=== PATIENT | female | born 1960 | race Caucasian/White ===

== ENCOUNTER → 2018-11-03 | Outpatient (CLI) | payer OTHER ==
--- NOTE | 2018-11-03 14:40 | Diagnostic Imaging Report ---
PROCEDURE: US Non-ob pelvis comp/trans. TECHNIQUE: Multiple realtime grayscale images were obtained of the pelvis in various projections endovaginally. Transabdominal imaging was also performed. INDICATION: Postmenopausal bleeding. FINDINGS: The uterus measures 11.2 x 6.1 x 4.9 cm. Endometrium is 8 mm in thickness. No myometrial mass is identified. There is a mass involving the right adnexa measuring 9.4 x 8.2 x 7.5 cm. This does contain internal septations and vascularity and is suspicious for an ovarian neoplasm. There is some free fluid in the right adnexa as well. Left ovary was not visualized. IMPRESSION: Complex right adnexal mass, likely ovarian. This is suspicious for ovarian neoplasm. No other abnormality is detected. Dictated by: Dictated on workstation # [id number]
== END ==
LOC: RAD 12:47
PROVIDERS: ATTEND Obstetrics & Gynecology
DX: C50.919 Malignant neoplasm of unspecified site of unspecified female breast (principal); N84.0 Polyp of corpus uteri; Z79.810 Long term (current) use of selective estrogen receptor modulators (SERMs)
CPT/HCPCS: 76830; 76856

== ENCOUNTER → 2018-11-09 | Outpatient (CLI) | payer OTHER ==
[~2018-11-09] MED LIST: IOHEXOL 350 MG/ML 100 ML (OMNIPAQUE 350) VIAL IV ONE; NS 100 ML (IVPB) BAG IV ONE; RECEIVED CONTRAST (Hold Metformin) IV SCH
--- NOTE | 2018-11-09 09:44 | Diagnostic Imaging Report ---
PROCEDURE: CT chest with contrast, CT abdomen and pelvis with and without contrast. TECHNIQUE: Pre and post intravenous contrast axial imaging of the abdomen and pelvis and post contrast axial imaging of the chest were performed. INDICATION: Adnexal mass. COMPARISON: No prior CT studies are available for comparison. FINDINGS: CT chest: No axillary lymphadenopathy is seen. No definite mediastinal or hilar lymphadenopathy is identified. No pericardial or pleural fluid is identified. Pulmonary parenchymal evaluation does show some linear opacity in the left upper lobe suggestive of scarring. There is some minimal linear scarring or atelectasis right lower lobe as well. No parenchymal mass or nodule is seen. IMPRESSION: Essentially unremarkable CT of the chest apart from areas of linear atelectasis or scarring left upper lobe and right lower lobe. No thoracic lymphadenopathy or evidence of pulmonary metastatic disease is identified. CT abdomen and pelvis: No discrete liver mass is identified. The gallbladder is unremarkable. No biliary duct dilatation is seen. The pancreas is unremarkable. There is a tiny low density in the lower portion of the spleen measuring 11 mm. This most likely represents a cyst. No adrenal mass is identified. The kidneys are unremarkable. Aorta is nonaneurysmal. No definite central retroperitoneal lymphadenopathy is seen. There is abnormal density and nodularity involving the omentum in the anterior abdomen suggestive of omental caking. There also is free fluid in the abdomen located in perihepatic and perisplenic regions as well as paracolic gutters. Imaging through the pelvis demonstrates a complex mixed solid and cystic mass in the right adnexa correlating with the recent ultrasound abnormality. This measures 7.8 x 7.6 cm. There is some free fluid in the pelvis as well. There is diverticular disease of the sigmoid colon. The bladder is unremarkable. No definite inguinal or iliac lymphadenopathy is seen. IMPRESSION: Complex mass right adnexa, highly suggestive of ovarian neoplasm. In addition, there appears to be omental caking and abdominal and pelvic ascites. Features are suggestive of peritoneal carcinomatosis. Dictated by: Dictated on workstation # [id number]
== END ==
LOC: RAD 08:41
PROVIDERS: ATTEND Obstetrics & Gynecology
DX: C50.919 Malignant neoplasm of unspecified site of unspecified female breast (principal); N83.8 Other noninflammatory disorders of ovary, fallopian tube and broad ligament; N84.0 Polyp of corpus uteri; R18.8 Other ascites
CPT/HCPCS: 71260; 74178

== ENCOUNTER 2019-01-17 08:43 | Outpatient (RCR) | payer SELFPAY ==
[2019-01-17] MEDS ORDERED: PACLITAXEL PROTEIN IV SCH (11:45)
[2019-01-17] MEDS ORDERED: PALONOSETRON HCL 0.25 MG, DEXAMETHASONE INJECTION 10 MG in NS (IVPB) CANCER CENTER 50 ML IV SCH (11:45)
[2019-01-17] MEDS ORDERED: NORMAL SALINE IV SCH (11:45)
[2019-01-17] MEDS ORDERED: NS IV 1000 ML (CANCER CTR) IV SCH (11:45)
[2019-01-17] MEDS ORDERED: FOSAPREPITANT DIMEGLUMINE 150 MG in NS (IVPB) CANCER CENTER ONLY 150 ML IV SCH (11:45)
[2019-01-18] MEDS ORDERED: PACLITAXEL PROTEIN IV SCH (08:15)
[2019-01-18] MEDS ORDERED: NORMAL SALINE IV SCH (08:15)
[2019-01-18 10:20] LABS: BASOPHILS % (AUTO) 1 % (0-10); EOSINOPHILS % (AUTO) 0 % (0-10); HEMATOCRIT 35 % (35-52); HEMOGLOBIN 11.1 G/DL (11.5-16.0); LYMPHOCYTES # (AUTO) 0.7 X 10^3 (1.0-4.0); LYMPHOCYTES % (AUTO) 41 % (12-44); MEAN CORPUSCULAR HEMOGLOBIN 29 PG (25-34); MEAN CORPUSCULAR HGB CONC 32 G/DL (32-36); MEAN CORPUSCULAR VOLUME 91 FL (80-99); MEAN PLATELET VOLUME 9.8 FL (7.4-10.4); MONOCYTES # (AUTO) 0.1 X 10^3 (0.0-1.0); MONOCYTES % (AUTO) 3 % (0-12); NEUTROPHILS % (AUTO) 55 % (42-75); PLATELET COUNT 442 10^3/uL (130-400); RED CELL DISTRIBUTION WIDTH 16.1 % (10.0-14.5); WHITE BLOOD COUNT 1.8 10^3/uL (4.3-11.0)
[2019-01-18 10:41] LABS: ALANINE AMINOTRANSFERASE 96 U/L (0-55); ALBUMIN 4.4 GM/DL (3.2-4.5); ALKALINE PHOSPHATASE 152 U/L (40-136); BILIRUBIN,TOTAL 0.3 MG/DL (0.1-1.0); BUN/CREATININE RATIO 22; CALCIUM 9.6 MG/DL (8.5-10.1); CARBON DIOXIDE 20 MMOL/L (21-32); CHLORIDE 105 MMOL/L (98-107); CREATININE SERUM 0.79 MG/DL (0.60-1.30); GFR ESTIMATED > 60; GLUCOSE 167 MG/DL (70-105); POTASSIUM 4.3 MMOL/L (3.6-5.0); SODIUM 137 MMOL/L (135-145); TOTAL PROTEIN 7.2 GM/DL (6.4-8.2)
== END 2019-01-18 09:45 | disposition home or self-care (01) ==
LOC: ONC 08:43
PROVIDERS: ATTEND Internal Medicine Hematology & Oncology
DX: C56.1 Malignant neoplasm of right ovary (principal); C56.2 Malignant neoplasm of left ovary; Z85.3 Personal history of malignant neoplasm of breast; Z92.21 Personal history of antineoplastic chemotherapy; Z92.3 Personal history of irradiation; Z80.3 Family history of malignant neoplasm of breast; Z80.0 Family history of malignant neoplasm of digestive organs; Z90.13 Acquired absence of bilateral breasts and nipples; Z90.81 Acquired absence of spleen; Z90.79 Acquired absence of other genital organ(s)
CPT/HCPCS: 36415; 80053; 85025; 86304; 99213

== ENCOUNTER → 2019-01-18 | Outpatient (CLI) | payer SELFPAY ==
[~2019-01-18] MED LIST changes: +FAMOTIDINE 20MG/2ML IV (CANCER CTR) IV SCH; +FOSAPREPITANT DIMEGLUMINE 150 MG in NS (IVPB) CANCER CENTER ONLY 150 ML IV SCH; -IOHEXOL 350 MG/ML 100 ML (OMNIPAQUE 350) VIAL IV ONE; +NORMAL SALINE IV SCH; -NS 100 ML (IVPB) BAG IV ONE; +NS IV 1000 ML (CANCER CTR) IV SCH; +PACLITAXEL IV SCH; +PACLITAXEL PROTEIN IV SCH; +PALONOSETRON HCL 0.25 MG, DEXAMETHASONE INJECTION 10 MG in NS (IVPB) CANCER CENTER 50 ML IV SCH; +PEGFILGRASTIM 6 MG/0.6 ML ONPRO KIT SQ SCH; -RECEIVED CONTRAST (Hold Metformin) IV SCH; +diphenhydrAMINE 50 MG/ML INJ (CANCER CENTER) IV PRN
== END ==
LOC: EDSTATUS 09:49 → ONC 09:51
PROVIDERS: ATTEND Internal Medicine Hematology & Oncology
DX: Z51.11 Encounter for antineoplastic chemotherapy (principal); C56.1 Malignant neoplasm of right ovary; C56.2 Malignant neoplasm of left ovary; Z85.3 Personal history of malignant neoplasm of breast; Z92.21 Personal history of antineoplastic chemotherapy; Z92.3 Personal history of irradiation; Z80.3 Family history of malignant neoplasm of breast; Z80.0 Family history of malignant neoplasm of digestive organs; Z90.13 Acquired absence of bilateral breasts and nipples; Z90.81 Acquired absence of spleen; Z90.79 Acquired absence of other genital organ(s)
CPT/HCPCS: 36591; 96367; 96375; 96377; 96413; 96415; 96417; J2505

== ENCOUNTER → 2019-02-08 | Outpatient (CLI) | payer OTHER | LOC: LAB 10:54 | PROVIDERS: ATTEND Emergency Medicine | DX: C56.1 Malignant neoplasm of right ovary (principal); D70.8 Other neutropenia; Z79.899 Other long term (current) drug therapy ==

== ENCOUNTER → 2019-02-08 | Outpatient (CLI) | payer OTHER ==
[~2019-02-08] MED LIST changes: +FOSAPREPITANT DIMEGLUMINE 150 MG in NS (IVPB) CANCER CENTER ONLY 150 ML IV PRN; -PACLITAXEL PROTEIN IV SCH; +diphenhydrAMINE 25 MG TAB (BENADRYL) CANCER CENTER PO SCH
[2019-02-08 11:22] LABS: BASOPHILS % (AUTO) 0 % (0-10); EOSINOPHILS % (AUTO) 0 % (0-10); HEMATOCRIT 32 % (35-52); HEMOGLOBIN 10.6 G/DL (11.5-16.0); LYMPHOCYTES # (AUTO) 0.8 X 10^3 (1.0-4.0); LYMPHOCYTES % (AUTO) 13 % (12-44); MEAN CORPUSCULAR HEMOGLOBIN 30 PG (25-34); MEAN CORPUSCULAR HGB CONC 33 G/DL (32-36); MEAN CORPUSCULAR VOLUME 90 FL (80-99); MEAN PLATELET VOLUME 9.2 FL (7.4-10.4); MONOCYTES % (AUTO) 0 % (0-12); NEUTROPHILS # (AUTO) 4.9 X 10^3 (1.8-7.8); NEUTROPHILS % (AUTO) 86 % (42-75); PLATELET COUNT 742 10^3/uL (130-400); RED CELL DISTRIBUTION WIDTH 17.7 % (10.0-14.5); WHITE BLOOD COUNT 5.6 10^3/uL (4.3-11.0)
[2019-02-08 11:42] LABS: ALANINE AMINOTRANSFERASE 43 U/L (0-55); ALBUMIN 4.2 GM/DL (3.2-4.5); ALKALINE PHOSPHATASE 193 U/L (40-136); BILIRUBIN,TOTAL 0.3 MG/DL (0.1-1.0); BUN/CREATININE RATIO 20; CALCIUM 9.9 MG/DL (8.5-10.1); CARBON DIOXIDE 24 MMOL/L (21-32); CHLORIDE 104 MMOL/L (98-107); CREATININE SERUM 0.76 MG/DL (0.60-1.30); GFR ESTIMATED > 60; GLUCOSE 163 MG/DL (70-105); POTASSIUM 4.1 MMOL/L (3.6-5.0); SODIUM 136 MMOL/L (135-145); TOTAL PROTEIN 7.5 GM/DL (6.4-8.2)
== END ==
LOC: ONC 10:58
PROVIDERS: ATTEND Internal Medicine Hematology & Oncology
DX: Z51.11 Encounter for antineoplastic chemotherapy (principal); C56.1 Malignant neoplasm of right ovary; C56.2 Malignant neoplasm of left ovary; Z85.3 Personal history of malignant neoplasm of breast; Z92.21 Personal history of antineoplastic chemotherapy; Z92.3 Personal history of irradiation; Z80.3 Family history of malignant neoplasm of breast; Z80.0 Family history of malignant neoplasm of digestive organs; Z90.13 Acquired absence of bilateral breasts and nipples; Z90.81 Acquired absence of spleen; Z90.79 Acquired absence of other genital organ(s)
CPT/HCPCS: 36591; 80053; 83735; 85025; 86304; 96367; 96375; 96413; 96415; 96417; J2505

== ENCOUNTER → 2019-03-01 | Outpatient (CLI) | payer OTHER ==
[~2019-03-01] MED LIST changes: -FOSAPREPITANT DIMEGLUMINE 150 MG in NS (IVPB) CANCER CENTER ONLY 150 ML IV SCH; +NS IV 1000 ML (CANCER CTR) 1,000 ML ONE; +diphenhydrAMINE 25 MG TAB (BENADRYL) CANCER CENTER PO ONE; -diphenhydrAMINE 50 MG/ML INJ (CANCER CENTER) IV PRN
[2019-03-01 11:28] LABS: BASOPHILS % (AUTO) 0 % (0-10); EOSINOPHILS % (AUTO) 0 % (0-10); HEMATOCRIT 34 % (35-52); HEMOGLOBIN 11.4 G/DL (11.5-16.0); LYMPHOCYTES # (AUTO) 0.8 X 10^3 (1.0-4.0); LYMPHOCYTES % (AUTO) 6 % (12-44); MEAN CORPUSCULAR HEMOGLOBIN 31 PG (25-34); MEAN CORPUSCULAR HGB CONC 34 G/DL (32-36); MEAN CORPUSCULAR VOLUME 92 FL (80-99); MEAN PLATELET VOLUME 9.9 FL (7.4-10.4); MONOCYTES % (AUTO) 0 % (0-12); NEUTROPHILS # (AUTO) 11.6 X 10^3 (1.8-7.8); NEUTROPHILS % (AUTO) 93 % (42-75); PLATELET COUNT 368 10^3/uL (130-400); RED CELL DISTRIBUTION WIDTH 19.2 % (10.0-14.5); WHITE BLOOD COUNT 12.4 10^3/uL (4.3-11.0)
[2019-03-01 11:51] LABS: ALANINE AMINOTRANSFERASE 26 U/L (0-55); ALBUMIN 4.4 GM/DL (3.2-4.5); ALKALINE PHOSPHATASE 115 U/L (40-136); BILIRUBIN,TOTAL 0.5 MG/DL (0.1-1.0); BUN/CREATININE RATIO 22; CALCIUM 10.1 MG/DL (8.5-10.1); CARBON DIOXIDE 26 MMOL/L (21-32); CHLORIDE 103 MMOL/L (98-107); CREATININE SERUM 0.72 MG/DL (0.60-1.30); GFR ESTIMATED > 60; GLUCOSE 152 MG/DL (70-105); MAGNESIUM 1.8 MG/DL (1.8-2.4); POTASSIUM 3.9 MMOL/L (3.6-5.0); SODIUM 136 MMOL/L (135-145); TOTAL PROTEIN 7.2 GM/DL (6.4-8.2)
== END ==
LOC: ONC 10:43
PROVIDERS: ATTEND Internal Medicine Hematology & Oncology
DX: Z51.11 Encounter for antineoplastic chemotherapy (principal); C56.1 Malignant neoplasm of right ovary; C56.2 Malignant neoplasm of left ovary; Z85.3 Personal history of malignant neoplasm of breast; Z92.21 Personal history of antineoplastic chemotherapy; Z92.3 Personal history of irradiation; Z80.3 Family history of malignant neoplasm of breast; Z80.0 Family history of malignant neoplasm of digestive organs; Z90.13 Acquired absence of bilateral breasts and nipples; Z90.81 Acquired absence of spleen; Z90.79 Acquired absence of other genital organ(s)
CPT/HCPCS: 36591; 80053; 83735; 85025; 86304; 96367; 96375; 96377; 96413; 96415; 96417; J2505

== ENCOUNTER → 2019-04-12 | Outpatient (CLI) | payer OTHER ==
[~2019-04-12] MED LIST changes: -NS IV 1000 ML (CANCER CTR) 1,000 ML ONE; -diphenhydrAMINE 25 MG TAB (BENADRYL) CANCER CENTER PO ONE
== END ==
LOC: ONC 13:05
PROVIDERS: ATTEND Internal Medicine Hematology & Oncology
DX: Z51.11 Encounter for antineoplastic chemotherapy (principal); C56.1 Malignant neoplasm of right ovary; C56.2 Malignant neoplasm of left ovary; Z85.3 Personal history of malignant neoplasm of breast; Z92.21 Personal history of antineoplastic chemotherapy; Z92.3 Personal history of irradiation; Z80.3 Family history of malignant neoplasm of breast; Z80.0 Family history of malignant neoplasm of digestive organs; Z90.13 Acquired absence of bilateral breasts and nipples; Z90.81 Acquired absence of spleen; Z90.79 Acquired absence of other genital organ(s)
CPT/HCPCS: 36591; 96367; 96375; 96377; 96413; 96415; 96417; J2505

== ENCOUNTER → 2019-05-03 | Outpatient (CLI) | payer OTHER ==
[~2019-05-03] VITALS: Ht 160 cm; Wt 54.9 kg
[~2019-05-03] MED LIST changes: +LORazepam INJ 2 MG/ML VIAL CANCER CTR IV SCH; +LORazepam INJ 2 MG/ML VIAL CANCER CTR ONE; +NS IV 1000 ML (CANCER CTR) 1,000 ML ONE; +diphenhydrAMINE 25 MG TAB (BENADRYL) CANCER CENTER PO ONE
== END ==
LOC: ONC 09:07
PROVIDERS: ATTEND Internal Medicine Hematology & Oncology
DX: Z51.11 Encounter for antineoplastic chemotherapy (principal); C56.1 Malignant neoplasm of right ovary; C56.2 Malignant neoplasm of left ovary; D70.1 Agranulocytosis secondary to cancer chemotherapy; T45.1X5A Adverse effect of antineoplastic and immunosuppressive drugs, initial encounter; Z85.3 Personal history of malignant neoplasm of breast; Z92.21 Personal history of antineoplastic chemotherapy; Z92.3 Personal history of irradiation; Z80.3 Family history of malignant neoplasm of breast; Z80.0 Family history of malignant neoplasm of digestive organs; Z90.13 Acquired absence of bilateral breasts and nipples; Z90.81 Acquired absence of spleen; Z90.79 Acquired absence of other genital organ(s)
CPT/HCPCS: 36591; 96367; 96375; 96377; 96413; 96415; 96417; J2505

== ENCOUNTER → 2019-05-25 | Outpatient (CLI) | payer OTHER | LOC: ONC 14:11 | PROVIDERS: ATTEND Internal Medicine Hematology & Oncology | DX: C56.1 Malignant neoplasm of right ovary (principal); C56.2 Malignant neoplasm of left ovary; D70.1 Agranulocytosis secondary to cancer chemotherapy; T45.1X5A Adverse effect of antineoplastic and immunosuppressive drugs, initial encounter; Z85.3 Personal history of malignant neoplasm of breast; Z92.21 Personal history of antineoplastic chemotherapy; Z92.3 Personal history of irradiation; Z80.3 Family history of malignant neoplasm of breast; Z80.0 Family history of malignant neoplasm of digestive organs; Z90.13 Acquired absence of bilateral breasts and nipples; Z90.81 Acquired absence of spleen; Z90.79 Acquired absence of other genital organ(s) | CPT/HCPCS: 96523 ==

== ENCOUNTER → 2019-07-24 | Outpatient (CLI) | payer OTHER ==
[2019-07-24 11:01] LABS: BASOPHILS % (AUTO) 0 % (0-10); EOSINOPHILS # (AUTO) 0.1 10^3/uL (0.0-0.3); EOSINOPHILS % (AUTO) 2 % (0-10); HEMATOCRIT 37 % (35-52); HEMOGLOBIN 12.1 G/DL (11.5-16.0); LYMPHOCYTES % (AUTO) 27 % (12-44); MEAN CORPUSCULAR HEMOGLOBIN 33 PG (25-34); MEAN CORPUSCULAR HGB CONC 33 G/DL (32-36); MEAN CORPUSCULAR VOLUME 100 FL (80-99); MEAN PLATELET VOLUME 9.5 FL (7.4-10.4); MONOCYTES # (AUTO) 0.7 X 10^3 (0.0-1.0); MONOCYTES % (AUTO) 10 % (0-12); NEUTROPHILS # (AUTO) 4.5 X 10^3 (1.8-7.8); NEUTROPHILS % (AUTO) 61 % (42-75); PLATELET COUNT 354 10^3/uL (130-400); RED CELL DISTRIBUTION WIDTH 13.4 % (10.0-14.5); WHITE BLOOD COUNT 7.3 10^3/uL (4.3-11.0)
[2019-07-24 11:23] LABS: ALANINE AMINOTRANSFERASE 53 U/L (0-55); ALKALINE PHOSPHATASE 81 U/L (40-136); BILIRUBIN,TOTAL 0.4 MG/DL (0.1-1.0); BUN/CREATININE RATIO 17; CALCIUM 9.3 MG/DL (8.5-10.1); CARBON DIOXIDE 28 MMOL/L (21-32); CHLORIDE 104 MMOL/L (98-107); CREATININE SERUM 0.75 MG/DL (0.60-1.30); GFR ESTIMATED > 60; GLUCOSE 114 MG/DL (70-105); POTASSIUM 3.8 MMOL/L (3.6-5.0); SODIUM 139 MMOL/L (135-145); TOTAL PROTEIN 7.5 GM/DL (6.4-8.2)
== END ==
LOC: ONC 10:24
PROVIDERS: ATTEND Internal Medicine Hematology & Oncology
DX: C56.1 Malignant neoplasm of right ovary (principal); C56.2 Malignant neoplasm of left ovary; Z85.3 Personal history of malignant neoplasm of breast; Z92.21 Personal history of antineoplastic chemotherapy; Z92.3 Personal history of irradiation; Z80.3 Family history of malignant neoplasm of breast; Z80.0 Family history of malignant neoplasm of digestive organs; Z90.13 Acquired absence of bilateral breasts and nipples; Z90.81 Acquired absence of spleen; Z90.79 Acquired absence of other genital organ(s); Z45.2 Encounter for adjustment and management of vascular access device
CPT/HCPCS: 36415; 80053; 85025; 86300; 86304

== ENCOUNTER → 2019-08-21 | Outpatient (CLI) | payer OTHER ==
[2019-08-21 11:16] LABS: BASOPHILS % (AUTO) 1 % (0-10); EOSINOPHILS # (AUTO) 0.1 10^3/uL (0.0-0.3); EOSINOPHILS % (AUTO) 1 % (0-10); HEMATOCRIT 35 % (35-52); HEMOGLOBIN 11.6 G/DL (11.5-16.0); LYMPHOCYTES # (AUTO) 1.6 X 10^3 (1.0-4.0); LYMPHOCYTES % (AUTO) 26 % (12-44); MEAN CORPUSCULAR HEMOGLOBIN 33 PG (25-34); MEAN CORPUSCULAR HGB CONC 34 G/DL (32-36); MEAN CORPUSCULAR VOLUME 99 FL (80-99); MEAN PLATELET VOLUME 9.3 FL (7.4-10.4); MONOCYTES # (AUTO) 1.4 X 10^3 (0.0-1.0); MONOCYTES % (AUTO) 23 % (0-12); NEUTROPHILS % (AUTO) 49 % (42-75); PLATELET COUNT 369 10^3/uL (130-400); RED CELL DISTRIBUTION WIDTH 14.9 % (10.0-14.5); WHITE BLOOD COUNT 6.1 10^3/uL (4.3-11.0)
[2019-08-21 11:34] LABS: ALANINE AMINOTRANSFERASE 67 U/L (0-55); ALKALINE PHOSPHATASE 100 U/L (40-136); BILIRUBIN,TOTAL 0.3 MG/DL (0.1-1.0); BUN/CREATININE RATIO 19; CALCIUM 9.4 MG/DL (8.5-10.1); CARBON DIOXIDE 28 MMOL/L (21-32); CHLORIDE 100 MMOL/L (98-107); CREATININE SERUM 0.77 MG/DL (0.60-1.30); GFR ESTIMATED > 60; GLUCOSE 93 MG/DL (70-105); POTASSIUM 3.9 MMOL/L (3.6-5.0); SODIUM 138 MMOL/L (135-145); TOTAL PROTEIN 6.9 GM/DL (6.4-8.2)
== END ==
LOC: ONC 11:00
PROVIDERS: ATTEND Internal Medicine Hematology & Oncology
DX: C56.1 Malignant neoplasm of right ovary (principal); C56.2 Malignant neoplasm of left ovary; Z85.3 Personal history of malignant neoplasm of breast; Z92.21 Personal history of antineoplastic chemotherapy; Z92.3 Personal history of irradiation; Z80.3 Family history of malignant neoplasm of breast; Z80.0 Family history of malignant neoplasm of digestive organs; Z90.13 Acquired absence of bilateral breasts and nipples; Z90.81 Acquired absence of spleen; Z90.79 Acquired absence of other genital organ(s); Z45.2 Encounter for adjustment and management of vascular access device
CPT/HCPCS: 36591; 80053; 85025; 86304

== ENCOUNTER → 2019-09-13 | Outpatient (CLI) | payer OTHER | LOC: ONC 09:58 | PROVIDERS: ATTEND Internal Medicine Hematology & Oncology | DX: Z45.2 Encounter for adjustment and management of vascular access device (principal) | CPT/HCPCS: 36591 ==

== ENCOUNTER → 2019-09-19 | Outpatient (CLI) | payer OTHER | LOC: ONC 09:25 | PROVIDERS: ATTEND Internal Medicine Hematology & Oncology | DX: C56.1 Malignant neoplasm of right ovary (principal); C56.2 Malignant neoplasm of left ovary; Z85.3 Personal history of malignant neoplasm of breast; Z92.21 Personal history of antineoplastic chemotherapy; Z92.3 Personal history of irradiation; Z80.3 Family history of malignant neoplasm of breast; Z80.0 Family history of malignant neoplasm of digestive organs; Z90.13 Acquired absence of bilateral breasts and nipples; Z90.81 Acquired absence of spleen; Z90.79 Acquired absence of other genital organ(s); Z45.2 Encounter for adjustment and management of vascular access device | CPT/HCPCS: 36415; 86304; 99213 ==

== ENCOUNTER → 2019-09-27 | Outpatient (CLI) | payer OTHER ==
[~2019-09-27] MED LIST changes: +BARIUM SUSPENSION 2.1% (VANILLA SILQ) 450 ML PO ONE; -FAMOTIDINE 20MG/2ML IV (CANCER CTR) IV SCH; -FOSAPREPITANT DIMEGLUMINE 150 MG in NS (IVPB) CANCER CENTER ONLY 150 ML IV PRN; +HOLD METFORMIN - RECEIVED CONTRAST 20 ML VIAL IV SCH; +IOHEXOL 350 MG/ML 100 ML (OMNIPAQUE 350) VIAL IV ONE; -LORazepam INJ 2 MG/ML VIAL CANCER CTR IV SCH; -LORazepam INJ 2 MG/ML VIAL CANCER CTR ONE; -NORMAL SALINE IV SCH; +NS 100 ML (IVPB) BAG IV ONE; -NS IV 1000 ML (CANCER CTR) 1,000 ML ONE; -NS IV 1000 ML (CANCER CTR) IV SCH; -PACLITAXEL IV SCH; -PALONOSETRON HCL 0.25 MG, DEXAMETHASONE INJECTION 10 MG in NS (IVPB) CANCER CENTER 50 ML IV SCH; -PEGFILGRASTIM 6 MG/0.6 ML ONPRO KIT SQ SCH; -diphenhydrAMINE 25 MG TAB (BENADRYL) CANCER CENTER PO ONE; -diphenhydrAMINE 25 MG TAB (BENADRYL) CANCER CENTER PO SCH
--- NOTE | 2019-09-27 14:32 | Diagnostic Imaging Report ---
PROCEDURE: CT chest with contrast, CT abdomen and pelvis with and without contrast. TECHNIQUE: Pre and post intravenous contrast axial imaging of the abdomen and pelvis and post contrast axial imaging of the chest were performed. Auto Exposure Controls were utilized during the CT exam to meet ALARA standards for radiation dose reduction. INDICATION: Ovarian carcinoma with increasing tumor markers. COMPARISON: Correlation is made with prior CT from 11/09/2018. FINDINGS: CT CHEST: Left chest wall port has the tip at the SVC right atrial junction. No axillary lymphadenopathy is identified. No mediastinal or hilar lymphadenopathy is detected. No pericardial or pleural fluid is identified. Parenchymal evaluation does show some scarring in the left upper lobe, similar to prior exam. There is a tiny nodular density adjacent to the major fissure on the right measuring 5 to 6 mm, also stable. There are several tiny subpleural micronodules in bilateral lower lung bentley, similar to prior exam. IMPRESSION: Overall stable CT chest since exam from 11/09/2018. CT ABDOMEN AND PELVIS: No discrete liver mass is identified. Gallbladder surgically absent. No biliary duct dilatation is seen. The pancreas is unremarkable. The spleen is surgically absent. No adrenal mass is detected. Kidneys are unremarkable. Aorta is non-aneurysmal. No definite central, retroperitoneal or mesenteric lymphadenopathy. Previously noted omental caking in the anterior abdomen on prior CT is no longer appreciated. There is an area of questionable soft tissue thickening with small cyst along the lateral aspect of the ascending colon which is indeterminate. This area measures 4.0 x 2.0 cm. There is a small cystic component that measures approximately 18 mm. The bowel loops are normal caliber. There is moderate stool throughout the colon suggestive of constipation. No free fluid in the abdomen or pelvis is seen. The bladder is unremarkable. Postsurgical changes in the pelvis are identified. Patient has had a hysterectomy. The complex right adnexal mass noted on prior exam is no longer present and has been surgically removed. No definite pelvic lymphadenopathy is seen. IMPRESSION: Essentially unremarkable CT of the abdomen and pelvis with the exception of an area of questionable abnormal soft tissue along the lateral wall of the ascending colon with small cystic component. The possibility of a peritoneal implant cannot be excluded. There is no free fluid or fluid collection on today's study. Previously noted omental caking has resolved. No abdominal or pelvic lymphadenopathy is detected. Dictated by: Dictated on workstation # [id number]
== END ==
LOC: RAD 13:05
PROVIDERS: ATTEND Internal Medicine Hematology & Oncology
DX: C56.9 Malignant neoplasm of unspecified ovary (principal)
CPT/HCPCS: 71260; 74178

== ENCOUNTER → 2019-09-28 | Outpatient (CLI) | payer OTHER | LOC: ONC 14:09 | PROVIDERS: ATTEND Internal Medicine Hematology & Oncology | DX: C56.1 Malignant neoplasm of right ovary (principal); C56.2 Malignant neoplasm of left ovary; Z85.3 Personal history of malignant neoplasm of breast; Z92.21 Personal history of antineoplastic chemotherapy; Z92.3 Personal history of irradiation; Z80.3 Family history of malignant neoplasm of breast; Z80.0 Family history of malignant neoplasm of digestive organs; Z90.13 Acquired absence of bilateral breasts and nipples; Z90.81 Acquired absence of spleen; Z90.79 Acquired absence of other genital organ(s) | CPT/HCPCS: 99213 ==

== ENCOUNTER → 2019-11-02 | Outpatient (CLI) | payer OTHER ==
[~2019-11-02] VITALS: Ht 160 cm; Wt 62.1 kg
[~2019-11-02] MED LIST changes: -BARIUM SUSPENSION 2.1% (VANILLA SILQ) 450 ML PO ONE; +D5W 500 ML IV (CANCER CTR) 500 ML IV ONE; +D5W 500 ML IV (CANCER CTR) 500 ML IV SCH; +DOXORUBICIN LIPOSOMAL INJECT IV SCH; -HOLD METFORMIN - RECEIVED CONTRAST 20 ML VIAL IV SCH; -IOHEXOL 350 MG/ML 100 ML (OMNIPAQUE 350) VIAL IV ONE; -NS 100 ML (IVPB) BAG IV ONE; +PALONOSETRON HCL 0.25 MG, DEXAMETHASONE INJECTION 10 MG in NS (IVPB) CANCER CENTER 50 ML IV SCH; +[UNRECOGNIZED DRUG - OTHER] IV SCH; +diphenhydrAMINE 25 MG TAB (BENADRYL) CANCER CENTER PO SCH; +diphenhydrAMINE 50 MG/ML INJ (CANCER CENTER) ONE
== END ==
LOC: ONC 10:16
PROVIDERS: ATTEND Internal Medicine Hematology & Oncology
DX: Z51.81 Encounter for therapeutic drug level monitoring (principal); C56.1 Malignant neoplasm of right ovary; C56.2 Malignant neoplasm of left ovary; Z93.2 Ileostomy status; Z85.3 Personal history of malignant neoplasm of breast
CPT/HCPCS: 36591; 96375; 96413; 99213

== ENCOUNTER → 2019-11-27 | Outpatient (CLI) | payer OTHER | LOC: CARD 08:57 | PROVIDERS: ATTEND Nurse Practitioner Adult Health | DX: Z51.81 Encounter for therapeutic drug level monitoring (principal); C56.1 Malignant neoplasm of right ovary; Z79.899 Other long term (current) drug therapy | CPT/HCPCS: 93306 ==

== ENCOUNTER → 2019-11-30 | Outpatient (CLI) | payer OTHER ==
[~2019-11-30] MED LIST changes: -D5W 500 ML IV (CANCER CTR) 500 ML IV ONE; +[UNRECOGNIZED DRUG - OTHER] IV SCH; -diphenhydrAMINE 50 MG/ML INJ (CANCER CENTER) ONE
[2019-11-30 09:33] LABS: BASOPHILS % (AUTO) 0 % (0-10); EOSINOPHILS # (AUTO) 0.1 10^3/uL (0.0-0.3); EOSINOPHILS % (AUTO) 1 % (0-10); HEMATOCRIT 38 % (35-52); HEMOGLOBIN 12.4 G/DL (11.5-16.0); LYMPHOCYTES % (AUTO) 27 % (12-44); MEAN CORPUSCULAR HEMOGLOBIN 32 PG (25-34); MEAN CORPUSCULAR HGB CONC 33 G/DL (32-36); MEAN CORPUSCULAR VOLUME 99 FL (80-99); MEAN PLATELET VOLUME 9.4 FL (7.4-10.4); MONOCYTES # (AUTO) 1.3 X 10^3 (0.0-1.0); MONOCYTES % (AUTO) 17 % (0-12); NEUTROPHILS # (AUTO) 4.1 X 10^3 (1.8-7.8); NEUTROPHILS % (AUTO) 54 % (42-75); PLATELET COUNT 535 10^3/uL (130-400); RED CELL DISTRIBUTION WIDTH 13.3 % (10.0-14.5); WHITE BLOOD COUNT 7.5 10^3/uL (4.3-11.0)
[2019-11-30 09:57] LABS: ALANINE AMINOTRANSFERASE 23 U/L (0-55); ALBUMIN 4.1 GM/DL (3.2-4.5); ALKALINE PHOSPHATASE 86 U/L (40-136); BILIRUBIN,TOTAL 0.4 MG/DL (0.1-1.0); BUN/CREATININE RATIO 17; CARBON DIOXIDE 28 MMOL/L (21-32); CHLORIDE 101 MMOL/L (98-107); CREATININE SERUM 0.77 MG/DL (0.60-1.30); GFR ESTIMATED > 60; GLUCOSE 92 MG/DL (70-105); POTASSIUM 4.1 MMOL/L (3.6-5.0); SODIUM 137 MMOL/L (135-145); TOTAL PROTEIN 7.3 GM/DL (6.4-8.2)
== END ==
LOC: ONC 09:15
PROVIDERS: ATTEND Internal Medicine Hematology & Oncology
DX: C56.1 Malignant neoplasm of right ovary (principal); C56.2 Malignant neoplasm of left ovary; Z85.3 Personal history of malignant neoplasm of breast; Z92.21 Personal history of antineoplastic chemotherapy; Z92.3 Personal history of irradiation; Z80.3 Family history of malignant neoplasm of breast; Z80.0 Family history of malignant neoplasm of digestive organs; Z90.13 Acquired absence of bilateral breasts and nipples; Z90.81 Acquired absence of spleen; Z90.79 Acquired absence of other genital organ(s); Z79.899 Other long term (current) drug therapy
CPT/HCPCS: 36591; 80053; 85025; 86304; 96375; 96413

== ENCOUNTER → 2019-12-14 | Outpatient (CLI) | payer OTHER ==
[2019-12-14 11:18] LABS: BASOPHILS % (AUTO) 0 % (0-10); EOSINOPHILS % (AUTO) 0 % (0-10); HEMATOCRIT 38 % (35-52); HEMOGLOBIN 12.9 G/DL (11.5-16.0); LYMPHOCYTES # (AUTO) 1.4 X 10^3 (1.0-4.0); LYMPHOCYTES % (AUTO) 19 % (12-44); MEAN CORPUSCULAR HEMOGLOBIN 33 PG (25-34); MEAN CORPUSCULAR HGB CONC 34 G/DL (32-36); MEAN CORPUSCULAR VOLUME 97 FL (80-99); MEAN PLATELET VOLUME 9.8 FL (7.4-10.4); MONOCYTES # (AUTO) 0.8 X 10^3 (0.0-1.0); MONOCYTES % (AUTO) 11 % (0-12); NEUTROPHILS # (AUTO) 5.3 X 10^3 (1.8-7.8); NEUTROPHILS % (AUTO) 70 % (42-75); PLATELET COUNT 429 10^3/uL (130-400); RED CELL DISTRIBUTION WIDTH 13.4 % (10.0-14.5); WHITE BLOOD COUNT 7.5 10^3/uL (4.3-11.0)
[2019-12-14 11:41] LABS: CARBON DIOXIDE 25 MMOL/L (21-32); CHLORIDE 102 MMOL/L (98-107); POTASSIUM 4.2 MMOL/L (3.6-5.0); SODIUM 137 MMOL/L (135-145)
[2019-12-14 11:42] LABS: ALANINE AMINOTRANSFERASE 27 U/L (0-55); ALKALINE PHOSPHATASE 102 U/L (40-136); BILIRUBIN,TOTAL 0.4 MG/DL (0.1-1.0); BUN/CREATININE RATIO 17; CALCIUM 9.6 MG/DL (8.5-10.1); CREATININE SERUM 0.81 MG/DL (0.60-1.30); GFR ESTIMATED > 60; GLUCOSE 111 MG/DL (70-105); TOTAL PROTEIN 7.2 GM/DL (6.4-8.2)
== END ==
LOC: ONC 10:31
PROVIDERS: ATTEND Internal Medicine Hematology & Oncology
DX: C56.1 Malignant neoplasm of right ovary (principal); Z90.49 Acquired absence of other specified parts of digestive tract; Z90.81 Acquired absence of spleen; Z90.13 Acquired absence of bilateral breasts and nipples; Z85.3 Personal history of malignant neoplasm of breast; Z79.899 Other long term (current) drug therapy
CPT/HCPCS: 80053; 85025; 99213

== ENCOUNTER → 2019-12-20 | Outpatient (CLI) | payer OTHER ==
[2019-12-20 12:16] LABS: BASOPHILS % (AUTO) 0 % (0-10); EOSINOPHILS # (AUTO) 0.1 10^3/uL (0.0-0.3); EOSINOPHILS % (AUTO) 1 % (0-10); HEMATOCRIT 35 % (35-52); HEMOGLOBIN 11.7 G/DL (11.5-16.0); LYMPHOCYTES # (AUTO) 1.7 X 10^3 (1.0-4.0); LYMPHOCYTES % (AUTO) 25 % (12-44); MEAN CORPUSCULAR HEMOGLOBIN 32 PG (25-34); MEAN CORPUSCULAR HGB CONC 33 G/DL (32-36); MEAN CORPUSCULAR VOLUME 97 FL (80-99); MEAN PLATELET VOLUME 9.4 FL (7.4-10.4); MONOCYTES # (AUTO) 1.3 X 10^3 (0.0-1.0); MONOCYTES % (AUTO) 20 % (0-12); NEUTROPHILS # (AUTO) 3.7 X 10^3 (1.8-7.8); NEUTROPHILS % (AUTO) 55 % (42-75); PLATELET COUNT 489 10^3/uL (130-400); RED CELL DISTRIBUTION WIDTH 13.7 % (10.0-14.5); WHITE BLOOD COUNT 6.7 10^3/uL (4.3-11.0)
[2019-12-20 12:34] LABS: ALANINE AMINOTRANSFERASE 20 U/L (0-55); ALBUMIN 3.8 GM/DL (3.2-4.5); ALKALINE PHOSPHATASE 105 U/L (40-136); BILIRUBIN,TOTAL 0.3 MG/DL (0.1-1.0); BUN/CREATININE RATIO 15; CALCIUM 9.6 MG/DL (8.5-10.1); CARBON DIOXIDE 27 MMOL/L (21-32); CHLORIDE 101 MMOL/L (98-107); CREATININE SERUM 0.71 MG/DL (0.60-1.30); GFR ESTIMATED > 60; GLUCOSE 96 MG/DL (70-105); POTASSIUM 4.1 MMOL/L (3.6-5.0); SODIUM 137 MMOL/L (135-145); TOTAL PROTEIN 6.9 GM/DL (6.4-8.2)
== END ==
LOC: ONC 11:56
PROVIDERS: ATTEND Internal Medicine Hematology & Oncology
DX: C56.1 Malignant neoplasm of right ovary (principal); Z90.49 Acquired absence of other specified parts of digestive tract; Z90.81 Acquired absence of spleen; Z90.13 Acquired absence of bilateral breasts and nipples; Z85.3 Personal history of malignant neoplasm of breast; Z79.899 Other long term (current) drug therapy; C56.2 Malignant neoplasm of left ovary; Z92.21 Personal history of antineoplastic chemotherapy; Z92.3 Personal history of irradiation; Z80.3 Family history of malignant neoplasm of breast; Z80.0 Family history of malignant neoplasm of digestive organs; Z90.79 Acquired absence of other genital organ(s)
CPT/HCPCS: 36591; 80053; 85025; 86304; 96360

== ENCOUNTER → 2019-12-22 | Outpatient (CLI) | payer SELFPAY ==
[~2019-12-22] MED LIST changes: +CATHETER FLUSH 10 ML SYR IV PRN; -D5W 500 ML IV (CANCER CTR) 500 ML IV SCH; -DOXORUBICIN LIPOSOMAL INJECT IV SCH; +HOLD METFORMIN - RECEIVED CONTRAST 20 ML VIAL IV SCH; +IOHEXOL 350 MG/ML 100 ML (OMNIPAQUE 350) VIAL IV ONE; +NS 100 ML (IVPB) BAG IV ONE; -PALONOSETRON HCL 0.25 MG, DEXAMETHASONE INJECTION 10 MG in NS (IVPB) CANCER CENTER 50 ML IV SCH; -[UNRECOGNIZED DRUG - OTHER] IV SCH; -[UNRECOGNIZED DRUG - OTHER] IV SCH; -diphenhydrAMINE 25 MG TAB (BENADRYL) CANCER CENTER PO SCH
--- NOTE | 2019-12-22 12:51 | Diagnostic Imaging Report ---
PROCEDURE: CT abdomen and pelvis with and without contrast. TECHNIQUE: Precontrast acquisitions were acquired through the abdomen and pelvis. Multiple contiguous axial images were obtained through the abdomen and pelvis after the administration of intravenous contrast. Auto Exposure Controls were utilized during the CT exam to meet ALARA standards for radiation dose reduction. INDICATION: Ovarian carcinoma. COMPARISON: Correlation is made with prior CT from 09/27/2019. FINDINGS: The lung bases are clear. No discrete liver mass is detected. Gallbladder surgically absent. No biliary duct dilatation is seen. The pancreas is unremarkable. The spleen appears to be surgically absent. No adrenal mass is identified. Kidneys are unremarkable. There has been interval development of moderate abdominal and pelvic ascites since prior CT. There is a probable peritoneal implant along the inferior right lobe surface of the liver measuring 2.1 cm. This is adjacent to the upper pole of the right kidney. The area of thickening along the ascending colon on prior study is not as well appreciated on today's exam. There is some slight nodular thickening of the peritoneum in the right pelvis. No significant omental caking is identified. No pelvic lymphadenopathy is identified. Bladder is decompressed. IMPRESSION: Adverse changes since prior CT. Patient has developed moderate abdominal and pelvic ascites. There appears to be some peritoneal thickening in the abdomen and pelvis with some slight nodular component in the right hemipelvis. There is also probable peritoneal implant along the surface of the liver in the inferior right lobe. Features are suggestive of peritoneal carcinomatosis. No bowel obstruction is identified. No other significant abnormality is seen. Dictated by: Dictated on workstation # [id number]
== END ==
LOC: RAD 11:35
PROVIDERS: ATTEND Internal Medicine Hematology & Oncology
DX: C56.1 Malignant neoplasm of right ovary (principal); R97.1 Elevated cancer antigen 125 [CA 125]; R18.8 Other ascites
CPT/HCPCS: 74178

== ENCOUNTER → 2019-12-28 | Outpatient (CLI) | payer OTHER ==
[~2019-12-28] VITALS: Ht 160 cm; Wt 62.1 kg
[~2019-12-28] MED LIST changes: +BEVACIZUMAB IV SCH; -CATHETER FLUSH 10 ML SYR IV PRN; -HOLD METFORMIN - RECEIVED CONTRAST 20 ML VIAL IV SCH; -IOHEXOL 350 MG/ML 100 ML (OMNIPAQUE 350) VIAL IV ONE; -NS 100 ML (IVPB) BAG IV ONE; +NS IV 1000 ML (CANCER CTR) IV SCH; +NS IV 500 ML (CANCER CENTER) 500 ML ONE; +NS IV SCH; +ONDANSETRON MDV (CANCER CENTER 16 MG, DEXAMETHASONE INJ (CANCER CTR) 4 MG in NS (IVPB) ... IV SCH; +TOPOTECAN HCL IV SCH; +[UNRECOGNIZED DRUG - OTHER] IV SCH
[2019-12-28 09:16] LABS: BASOPHILS % (AUTO) 1 % (0-10); EOSINOPHILS # (AUTO) 0.1 10^3/uL (0.0-0.3); EOSINOPHILS % (AUTO) 1 % (0-10); HEMATOCRIT 36 % (35-52); HEMOGLOBIN 11.8 G/DL (11.5-16.0); LYMPHOCYTES # (AUTO) 1.2 X 10^3 (1.0-4.0); LYMPHOCYTES % (AUTO) 19 % (12-44); MEAN CORPUSCULAR HEMOGLOBIN 32 PG (25-34); MEAN CORPUSCULAR HGB CONC 33 G/DL (32-36); MEAN CORPUSCULAR VOLUME 97 FL (80-99); MEAN PLATELET VOLUME 9.3 FL (7.4-10.4); MONOCYTES # (AUTO) 1.3 X 10^3 (0.0-1.0); MONOCYTES % (AUTO) 21 % (0-12); NEUTROPHILS # (AUTO) 3.7 X 10^3 (1.8-7.8); NEUTROPHILS % (AUTO) 59 % (42-75); PLATELET COUNT 576 10^3/uL (130-400); RED CELL DISTRIBUTION WIDTH 13.3 % (10.0-14.5); WHITE BLOOD COUNT 6.3 10^3/uL (4.3-11.0)
[2019-12-28 09:41] LABS: ALANINE AMINOTRANSFERASE 12 U/L (0-55); ALBUMIN 3.7 GM/DL (3.2-4.5); ALKALINE PHOSPHATASE 85 U/L (40-136); BILIRUBIN,TOTAL 0.3 MG/DL (0.1-1.0); BUN/CREATININE RATIO 13; CALCIUM 9.6 MG/DL (8.5-10.1); CARBON DIOXIDE 26 MMOL/L (21-32); CHLORIDE 103 MMOL/L (98-107); CREATININE SERUM 0.75 MG/DL (0.60-1.30); GFR ESTIMATED > 60; GLUCOSE 103 MG/DL (70-105); POTASSIUM 3.9 MMOL/L (3.6-5.0); SODIUM 140 MMOL/L (135-145); TOTAL PROTEIN 6.8 GM/DL (6.4-8.2)
== END ==
LOC: ONC 09:06
PROVIDERS: ATTEND Internal Medicine Hematology & Oncology
DX: Z51.11 Encounter for antineoplastic chemotherapy (principal); C56.1 Malignant neoplasm of right ovary; C56.2 Malignant neoplasm of left ovary; Z78.1 Physical restraint status; R97.1 Elevated cancer antigen 125 [CA 125]; Z90.49 Acquired absence of other specified parts of digestive tract; Z90.81 Acquired absence of spleen; Z93.2 Ileostomy status; Z98.890 Other specified postprocedural states; Z79.899 Other long term (current) drug therapy; Z85.3 Personal history of malignant neoplasm of breast; Z90.12 Acquired absence of left breast and nipple
CPT/HCPCS: 36591; 80053; 85025; 96375; 96413; 96417

== ENCOUNTER → 2020-01-04 | Outpatient (CLI) | payer OTHER ==
[~2020-01-04] MED LIST changes: -NS IV 500 ML (CANCER CENTER) 500 ML ONE; -[UNRECOGNIZED DRUG - OTHER] IV SCH
[2020-01-04 10:22] LABS: BASOPHILS % (AUTO) 1 % (0-10); EOSINOPHILS # (AUTO) 0.1 10^3/uL (0.0-0.3); EOSINOPHILS % (AUTO) 2 % (0-10); HEMATOCRIT 34 % (35-52); LYMPHOCYTES # (AUTO) 1.6 X 10^3 (1.0-4.0); LYMPHOCYTES % (AUTO) 27 % (12-44); MEAN CORPUSCULAR HEMOGLOBIN 32 PG (25-34); MEAN CORPUSCULAR HGB CONC 33 G/DL (32-36); MEAN CORPUSCULAR VOLUME 97 FL (80-99); MEAN PLATELET VOLUME 8.8 FL (7.4-10.4); MONOCYTES # (AUTO) 1.2 X 10^3 (0.0-1.0); MONOCYTES % (AUTO) 20 % (0-12); NEUTROPHILS # (AUTO) 2.9 X 10^3 (1.8-7.8); NEUTROPHILS % (AUTO) 51 % (42-75); PLATELET COUNT 453 10^3/uL (130-400); RED CELL DISTRIBUTION WIDTH 13.5 % (10.0-14.5); WHITE BLOOD COUNT 5.8 10^3/uL (4.3-11.0)
[2020-01-04 10:39] LABS: BUN/CREATININE RATIO 23; CALCIUM 9.5 MG/DL (8.5-10.1); CARBON DIOXIDE 30 MMOL/L (21-32); CHLORIDE 104 MMOL/L (98-107); GFR ESTIMATED > 60; GLUCOSE 99 MG/DL (70-105); POTASSIUM 3.9 MMOL/L (3.6-5.0); SODIUM 141 MMOL/L (135-145)
== END ==
LOC: ONC 08:54
PROVIDERS: ATTEND Internal Medicine Hematology & Oncology
DX: Z51.11 Encounter for antineoplastic chemotherapy (principal); C56.1 Malignant neoplasm of right ovary; C56.2 Malignant neoplasm of left ovary; C78.6 Secondary malignant neoplasm of retroperitoneum and peritoneum; R97.1 Elevated cancer antigen 125 [CA 125]; Z92.21 Personal history of antineoplastic chemotherapy; Z92.3 Personal history of irradiation; Z85.3 Personal history of malignant neoplasm of breast; Z90.12 Acquired absence of left breast and nipple; Z90.89 Acquired absence of other organs; Z90.49 Acquired absence of other specified parts of digestive tract; Z90.81 Acquired absence of spleen
CPT/HCPCS: 36591; 80048; 85025; 96375; 96413

== ENCOUNTER → 2020-01-11 | Outpatient (CLI) | payer OTHER ==
[~2020-01-11] MED LIST changes: +NS IV 500 ML (CANCER CENTER) 500 ML ONE
[2020-01-11 08:56] LABS: BASOPHILS # (AUTO) 0.1 10^3/uL (0.0-0.1); BASOPHILS % (AUTO) 1 % (0-10); EOSINOPHILS # (AUTO) 0.1 10^3/uL (0.0-0.3); EOSINOPHILS % (AUTO) 2 % (0-10); HEMATOCRIT 34 % (35-52); HEMOGLOBIN 11.2 G/DL (11.5-16.0); LYMPHOCYTES # (AUTO) 1.7 X 10^3 (1.0-4.0); LYMPHOCYTES % (AUTO) 31 % (12-44); MEAN CORPUSCULAR HEMOGLOBIN 32 PG (25-34); MEAN CORPUSCULAR HGB CONC 33 G/DL (32-36); MEAN CORPUSCULAR VOLUME 96 FL (80-99); MEAN PLATELET VOLUME 8.9 FL (7.4-10.4); MONOCYTES # (AUTO) 0.8 X 10^3 (0.0-1.0); MONOCYTES % (AUTO) 15 % (0-12); NEUTROPHILS # (AUTO) 2.7 X 10^3 (1.8-7.8); NEUTROPHILS % (AUTO) 51 % (42-75); PLATELET COUNT 394 10^3/uL (130-400); RED CELL DISTRIBUTION WIDTH 13.6 % (10.0-14.5); WHITE BLOOD COUNT 5.3 10^3/uL (4.3-11.0)
[2020-01-11 09:12] LABS: BUN/CREATININE RATIO 18; CALCIUM 9.6 MG/DL (8.5-10.1); CARBON DIOXIDE 26 MMOL/L (21-32); CHLORIDE 105 MMOL/L (98-107); CREATININE SERUM 0.74 MG/DL (0.60-1.30); GFR ESTIMATED > 60; GLUCOSE 68 MG/DL (70-105); POTASSIUM 4.1 MMOL/L (3.6-5.0); SODIUM 141 MMOL/L (135-145)
== END ==
LOC: ONC 08:37
PROVIDERS: ATTEND Internal Medicine Hematology & Oncology
DX: Z51.11 Encounter for antineoplastic chemotherapy (principal); C56.1 Malignant neoplasm of right ovary; C56.2 Malignant neoplasm of left ovary; C78.6 Secondary malignant neoplasm of retroperitoneum and peritoneum; R97.1 Elevated cancer antigen 125 [CA 125]; Z92.21 Personal history of antineoplastic chemotherapy; Z92.3 Personal history of irradiation; Z85.3 Personal history of malignant neoplasm of breast; Z90.12 Acquired absence of left breast and nipple; Z90.89 Acquired absence of other organs; Z90.49 Acquired absence of other specified parts of digestive tract; Z90.81 Acquired absence of spleen; Z79.899 Other long term (current) drug therapy
CPT/HCPCS: 36591; 80048; 85025; 96375; 96413; 96417

== ENCOUNTER → 2020-01-25 | Outpatient (CLI) | payer OTHER ==
[~2020-01-25] MED LIST changes: -NS IV 500 ML (CANCER CENTER) 500 ML ONE; -ONDANSETRON MDV (CANCER CENTER 16 MG, DEXAMETHASONE INJ (CANCER CTR) 4 MG in NS (IVPB) ... IV SCH; +PALONOSETRON HCL 0.25 MG, DEXAMETHASONE INJECTION 10 MG in NS (IVPB) CANCER CENTER 50 ML IV SCH
[2020-01-25 10:26] LABS: BASOPHILS % (AUTO) 0 % (0-10); EOSINOPHILS # (AUTO) 0.1 10^3/uL (0.0-0.3); EOSINOPHILS % (AUTO) 1 % (0-10); HEMATOCRIT 34 % (35-52); LYMPHOCYTES # (AUTO) 2.2 X 10^3 (1.0-4.0); LYMPHOCYTES % (AUTO) 39 % (12-44); MEAN CORPUSCULAR HEMOGLOBIN 31 PG (25-34); MEAN CORPUSCULAR HGB CONC 33 G/DL (32-36); MEAN CORPUSCULAR VOLUME 96 FL (80-99); MEAN PLATELET VOLUME 9.2 FL (7.4-10.4); MONOCYTES # (AUTO) 1.1 X 10^3 (0.0-1.0); MONOCYTES % (AUTO) 19 % (0-12); NEUTROPHILS # (AUTO) 2.3 X 10^3 (1.8-7.8); NEUTROPHILS % (AUTO) 41 % (42-75); PLATELET COUNT 540 10^3/uL (130-400); RED CELL DISTRIBUTION WIDTH 15.1 % (10.0-14.5); WHITE BLOOD COUNT 5.8 10^3/uL (4.3-11.0)
[2020-01-25 10:53] LABS: ALANINE AMINOTRANSFERASE 39 U/L (0-55); ALKALINE PHOSPHATASE 125 U/L (40-136); BILIRUBIN,TOTAL 0.3 MG/DL (0.1-1.0); BUN/CREATININE RATIO 25; CALCIUM 9.1 MG/DL (8.5-10.1); CARBON DIOXIDE 23 MMOL/L (21-32); CHLORIDE 103 MMOL/L (98-107); CREATININE SERUM 0.71 MG/DL (0.60-1.30); GFR ESTIMATED > 60; GLUCOSE 69 MG/DL (70-105); POTASSIUM 4.4 MMOL/L (3.6-5.0); SODIUM 136 MMOL/L (135-145); TOTAL PROTEIN 7.4 GM/DL (6.4-8.2)
== END ==
LOC: ONC 10:06
PROVIDERS: ATTEND Internal Medicine Hematology & Oncology
DX: Z51.11 Encounter for antineoplastic chemotherapy (principal); C56.1 Malignant neoplasm of right ovary; C56.2 Malignant neoplasm of left ovary; C78.6 Secondary malignant neoplasm of retroperitoneum and peritoneum; R97.1 Elevated cancer antigen 125 [CA 125]; Z92.21 Personal history of antineoplastic chemotherapy; Z92.3 Personal history of irradiation; Z85.3 Personal history of malignant neoplasm of breast; Z90.12 Acquired absence of left breast and nipple; Z90.89 Acquired absence of other organs; Z90.49 Acquired absence of other specified parts of digestive tract; Z90.81 Acquired absence of spleen; Z79.899 Other long term (current) drug therapy
CPT/HCPCS: 36591; 80053; 85025; 86304; 96375; 96413; 96417

== ENCOUNTER → 2020-02-01 | Outpatient (CLI) | payer OTHER ==
[~2020-02-01] MED LIST changes: +NS IV 500 ML (CANCER CENTER) 500 ML ONE; +PALONOSETRON HCL 0.25 MG, DEXAMETHASONE INJ (CANCER CTR) 4 MG in NS (IVPB) CANCER CENTE... IV SCH
[2020-02-01 10:38] LABS: BASOPHILS % (AUTO) 0 % (0-10); EOSINOPHILS # (AUTO) 0.1 10^3/uL (0.0-0.3); EOSINOPHILS % (AUTO) 1 % (0-10); HEMATOCRIT 32 % (35-52); HEMOGLOBIN 10.8 G/DL (11.5-16.0); LYMPHOCYTES # (AUTO) 2.4 X 10^3 (1.0-4.0); LYMPHOCYTES % (AUTO) 38 % (12-44); MEAN CORPUSCULAR HEMOGLOBIN 32 PG (25-34); MEAN CORPUSCULAR HGB CONC 33 G/DL (32-36); MEAN CORPUSCULAR VOLUME 96 FL (80-99); MEAN PLATELET VOLUME 9.1 FL (7.4-10.4); MONOCYTES # (AUTO) 0.9 X 10^3 (0.0-1.0); MONOCYTES % (AUTO) 13 % (0-12); NEUTROPHILS % (AUTO) 47 % (42-75); PLATELET COUNT 530 10^3/uL (130-400); WHITE BLOOD COUNT 6.4 10^3/uL (4.3-11.0)
[2020-02-01 10:53] LABS: CHLORIDE 101 MMOL/L (98-107); POTASSIUM 3.7 MMOL/L (3.6-5.0); SODIUM 138 MMOL/L (135-145)
[2020-02-01 10:54] LABS: CALCIUM 9.3 MG/DL (8.5-10.1)
[2020-02-01 10:55] LABS: GLUCOSE 115 MG/DL (70-105)
[2020-02-01 10:57] LABS: CARBON DIOXIDE 26 MMOL/L (21-32)
[2020-02-01 10:59] LABS: CREATININE SERUM 0.72 MG/DL (0.60-1.30); GFR ESTIMATED > 60
[2020-02-01 11:00] LABS: BUN/CREATININE RATIO 22
== END ==
LOC: ONC 10:05
PROVIDERS: ATTEND Internal Medicine Hematology & Oncology
DX: Z51.11 Encounter for antineoplastic chemotherapy (principal); C56.9 Malignant neoplasm of unspecified ovary; C78.6 Secondary malignant neoplasm of retroperitoneum and peritoneum
CPT/HCPCS: 36591; 80048; 85025; 96375; 96413

== ENCOUNTER → 2020-02-08 | Outpatient (CLI) | payer OTHER ==
[~2020-02-08] MED LIST changes: -PALONOSETRON HCL 0.25 MG, DEXAMETHASONE INJECTION 10 MG in NS (IVPB) CANCER CENTER 50 ML IV SCH
[2020-02-08 14:32] LABS: BASOPHILS # (AUTO) 0.1 10^3/uL (0.0-0.1); BASOPHILS % (AUTO) 1 % (0-10); EOSINOPHILS # (AUTO) 0.1 10^3/uL (0.0-0.3); EOSINOPHILS % (AUTO) 1 % (0-10); HEMATOCRIT 31 % (35-52); HEMOGLOBIN 10.4 G/DL (11.5-16.0); LYMPHOCYTES % (AUTO) 34 % (12-44); MEAN CORPUSCULAR HEMOGLOBIN 32 PG (25-34); MEAN CORPUSCULAR HGB CONC 34 G/DL (32-36); MEAN CORPUSCULAR VOLUME 96 FL (80-99); MEAN PLATELET VOLUME 9.3 FL (7.4-10.4); MONOCYTES # (AUTO) 0.9 X 10^3 (0.0-1.0); MONOCYTES % (AUTO) 15 % (0-12); NEUTROPHILS % (AUTO) 49 % (42-75); PLATELET COUNT 371 10^3/uL (130-400); RED CELL DISTRIBUTION WIDTH 15.2 % (10.0-14.5)
[2020-02-08 14:58] LABS: BUN/CREATININE RATIO 17; CALCIUM 8.9 MG/DL (8.5-10.1); CARBON DIOXIDE 25 MMOL/L (21-32); CHLORIDE 102 MMOL/L (98-107); CREATININE SERUM 0.81 MG/DL (0.60-1.30); GFR ESTIMATED > 60; GLUCOSE 94 MG/DL (70-105); POTASSIUM 4.1 MMOL/L (3.6-5.0); SODIUM 136 MMOL/L (135-145)
== END ==
LOC: ONC 14:06 → EDSTATUS 14:41 → ONC 14:42
PROVIDERS: ATTEND Internal Medicine Hematology & Oncology
DX: Z51.11 Encounter for antineoplastic chemotherapy (principal); C56.9 Malignant neoplasm of unspecified ovary; C78.6 Secondary malignant neoplasm of retroperitoneum and peritoneum
CPT/HCPCS: 36591; 80048; 85025; 96375; 96413; 96417

== ENCOUNTER → 2020-02-15 | Outpatient (CLI) | payer OTHER ==
[2020-02-22 14:06] LABS: BASOPHILS % (AUTO) 1 % (0-10); EOSINOPHILS # (AUTO) 0.1 10^3/uL (0.0-0.3); EOSINOPHILS % (AUTO) 2 % (0-10); HEMATOCRIT 32 % (35-52); HEMOGLOBIN 10.7 G/DL (11.5-16.0); LYMPHOCYTES # (AUTO) 1.9 X 10^3 (1.0-4.0); LYMPHOCYTES % (AUTO) 37 % (12-44); MEAN CORPUSCULAR HEMOGLOBIN 32 PG (25-34); MEAN CORPUSCULAR HGB CONC 33 G/DL (32-36); MEAN CORPUSCULAR VOLUME 97 FL (80-99); MEAN PLATELET VOLUME 9.5 FL (7.4-10.4); MONOCYTES # (AUTO) 0.9 X 10^3 (0.0-1.0); MONOCYTES % (AUTO) 18 % (0-12); NEUTROPHILS # (AUTO) 2.2 X 10^3 (1.8-7.8); NEUTROPHILS % (AUTO) 43 % (42-75); PLATELET COUNT 587 10^3/uL (130-400); RED CELL DISTRIBUTION WIDTH 16.5 % (10.0-14.5); WHITE BLOOD COUNT 5.2 10^3/uL (4.3-11.0)
[2020-02-22 14:19] LABS: ALANINE AMINOTRANSFERASE 14 U/L (0-55); ALKALINE PHOSPHATASE 81 U/L (40-136); BILIRUBIN,TOTAL 0.3 MG/DL (0.1-1.0); BUN/CREATININE RATIO 17; CALCIUM 9.4 MG/DL (8.5-10.1); CARBON DIOXIDE 25 MMOL/L (21-32); CHLORIDE 102 MMOL/L (98-107); CREATININE SERUM 0.81 MG/DL (0.60-1.30); GFR ESTIMATED > 60; GLUCOSE 91 MG/DL (70-105); POTASSIUM 4.1 MMOL/L (3.6-5.0); SODIUM 137 MMOL/L (135-145)
== END ==
LOC: ONC 09:52
PROVIDERS: ATTEND Internal Medicine Hematology & Oncology
DX: Z53.9 Procedure and treatment not carried out, unspecified reason (principal)

== ENCOUNTER → 2020-02-22 | Outpatient (CLI) | payer OTHER | LOC: ONC 13:21 | PROVIDERS: ATTEND Internal Medicine Hematology & Oncology | DX: Z51.11 Encounter for antineoplastic chemotherapy (principal); C56.1 Malignant neoplasm of right ovary; C78.6 Secondary malignant neoplasm of retroperitoneum and peritoneum; Z90.710 Acquired absence of both cervix and uterus; Z90.722 Acquired absence of ovaries, bilateral; Z90.49 Acquired absence of other specified parts of digestive tract; Z90.81 Acquired absence of spleen; Z93.2 Ileostomy status; Z90.89 Acquired absence of other organs; Z90.13 Acquired absence of bilateral breasts and nipples; Z85.3 Personal history of malignant neoplasm of breast; Z79.899 Other long term (current) drug therapy | CPT/HCPCS: 36591; 96375; 96413; 96417 ==

== ENCOUNTER → 2020-02-29 | Outpatient (CLI) | payer OTHER ==
[~2020-02-29] MED LIST changes: -NS IV 500 ML (CANCER CENTER) 500 ML ONE
[2020-02-29 13:43] LABS: BASOPHILS % (AUTO) 1 % (0-10); EOSINOPHILS # (AUTO) 0.1 10^3/uL (0.0-0.3); EOSINOPHILS % (AUTO) 1 % (0-10); HEMATOCRIT 32 % (35-52); HEMOGLOBIN 10.7 G/DL (11.5-16.0); LYMPHOCYTES % (AUTO) 44 % (12-44); MEAN CORPUSCULAR HEMOGLOBIN 32 PG (25-34); MEAN CORPUSCULAR HGB CONC 33 G/DL (32-36); MEAN CORPUSCULAR VOLUME 98 FL (80-99); MEAN PLATELET VOLUME 9.7 FL (7.4-10.4); MONOCYTES # (AUTO) 0.7 X 10^3 (0.0-1.0); MONOCYTES % (AUTO) 16 % (0-12); NEUTROPHILS # (AUTO) 1.8 X 10^3 (1.8-7.8); NEUTROPHILS % (AUTO) 39 % (42-75); PLATELET COUNT 527 10^3/uL (130-400); RED CELL DISTRIBUTION WIDTH 16.3 % (10.0-14.5); WHITE BLOOD COUNT 4.7 10^3/uL (4.3-11.0)
[2020-02-29 13:54] LABS: BUN/CREATININE RATIO 21; CALCIUM 9.5 MG/DL (8.5-10.1); CARBON DIOXIDE 26 MMOL/L (21-32); CHLORIDE 101 MMOL/L (98-107); CREATININE SERUM 0.77 MG/DL (0.60-1.30); GFR ESTIMATED > 60; GLUCOSE 135 MG/DL (70-105); POTASSIUM 3.7 MMOL/L (3.6-5.0); SODIUM 136 MMOL/L (135-145)
== END ==
LOC: RAD 12:52
PROVIDERS: ATTEND Internal Medicine Hematology & Oncology
DX: C56.1 Malignant neoplasm of right ovary (principal); C78.6 Secondary malignant neoplasm of retroperitoneum and peritoneum; Z90.710 Acquired absence of both cervix and uterus; Z90.722 Acquired absence of ovaries, bilateral; Z90.49 Acquired absence of other specified parts of digestive tract; Z90.81 Acquired absence of spleen; Z93.2 Ileostomy status; Z90.89 Acquired absence of other organs; Z90.13 Acquired absence of bilateral breasts and nipples; Z85.3 Personal history of malignant neoplasm of breast; Z79.899 Other long term (current) drug therapy
CPT/HCPCS: 36591; 80048; 85025; 96413

== ENCOUNTER 2020-03-06 13:41 | Inpatient (IN) | payer SELFPAY ==
[~2020-03-06] VITALS: Ht 160 cm; Wt 57.8 kg
--- NOTE | 2020-03-06 14:13 | ED Abdominal Pain ---
General Chief Complaint: Abdominal/GI Problems Stated Complaint: ABD PAIN;DX WITH OVARIAN CANCER Source of Information: Patient Exam Limitations: No Limitations History of Present Illness Date Seen by Provider: March 06, 2020 Time Seen by Provider: 14:08 Initial Comments To ER with reports of abdominal pain significantly worse associated with vomiting since about 10 AM this morning. No fever no chills. 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 Surgical history includes total abdominal hysterectomy with bilateral salpingo-oophorectomy, omentectomy, appendectomy, cholecystectomy, splenectomy, low anterior resection with anastomosis and diverting ileostomy-->(which has been subsequently reversed). Initial treatment was done at the [facility], she has since followed with Dr. Scott. Since surgery in November 2018 she has had adverse changes on CT, findings consistent of periton eal carcinomatosis. Today, she was unable to tolerate even and insure drink without vomiting and severe diffuse abdominal pain. She has been having bowel movements. Timing/Duration: Getting Worse, Intermittent Severity/Quality: Severe Location: Generalized Abdomen Radiation: No Radiation Activities at Onset: None Associated Symptoms: Nausea/Vomiting Allergies and Home Medications Allergies Coded Allergies: No Allergy Information Available (Unverified , 11/09/18) Patient Home Medication List Home Medication List Reviewed: Yes Review of Systems Review of Systems Constitutional: see HPI EENTM: No Symptoms Reported Respiratory: No Symptoms Reported Cardiovascular: No Symptoms Reported Gastrointestinal: See HPI, Abdominal Pain Genitourinary: No Symptoms Reported Musculoskeletal: no symptoms reported Skin: no symptoms reported Psychiatric/Neurological: No Symptoms Reported Endocrine: No Symptoms Reported Hematologic/Lymphatic: No Symptoms Reported Past Lsbgafc-Hkypjr-Jzotnu Hx Patient Social History Recent Foreign Travel: No Contact w/Someone Who Travel: No Physical Exam Vital Signs Vital Signs - First Documented 03/06/20 13:55 Temp 36.9 Pulse 108 Resp 18 B/P (MAP) 131/90 (104) Pulse Ox 99 Capillary Refill : Height/Weight/BMI Height: '" Weight: lbs. oz. kg; BMI Method: General Appearance: WD/WN, no apparent distress Neck: non-tender, full range of motion Respiratory: no respiratory distress, no accessory muscle use Cardiovascular: regular rate, rhythm, no murmur Gastrointestinal: normal bowel sounds, soft, tenderness Extremities: normal range of motion, non-tender Neurologic/Psychiatric: alert, normal mood/affect, oriented x 3 Skin: normal color, warm/dry Progress/Results/Core Measures Results/Orders Lab Results Laboratory Tests Test 03/06/20 14:25 03/06/20 16:18 Range/Units White Blood Count 6.3 4.3-11.0 10^3/uL Red Blood Count 3.61 L 4.35-5.85 10^6/uL Hemoglobin 11.6 11.5-16.0 G/DL Hematocrit 35 35-52 % Mean Corpuscular Volume 96 80-99 FL Mean Corpuscular Hemoglobin 32 25-34 PG Mean Corpuscular Hemoglobin Concent 33 32-36 G/DL Red Cell Distribution Width 15.9 H 10.0-14.5 % Platelet Count 383 130-400 10^3/uL Mean Platelet Volume 9.7 7.4-10.4 FL Neutrophils (%) (Auto) 76 H 42-75 % Lymphocytes (%) (Auto) 15 12-44 % Monocytes (%) (Auto) 9 0-12 % Eosinophils (%) (Auto) 0 0-10 % Basophils (%) (Auto) 0 0-10 % Neutrophils # (Auto) 4.7 1.8-7.8 X 10^3 Lymphocytes # (Auto) 0.9 L 1.0-4.0 X 10^3 Monocytes # (Auto) 0.6 0.0-1.0 X 10^3 Eosinophils # (Auto) 0.0 0.0-0.3 10^3/uL Basophils # (Auto) 0.0 0.0-0.1 10^3/uL Sodium Level 139 135-145 MMOL/L Potassium Level 3.6 3.6-5.0 MMOL/L Chloride Level 100 98-107 MMOL/L Carbon Dioxide Level 27 21-32 MMOL/L Anion Gap 12 5-14 MMOL/L Blood Urea Nitrogen 16 7-18 MG/DL Creatinine 0.80 0.60-1.30 MG/DL Estimat Glomerular Filtration Rate > 60 BUN/Creatinine Ratio 20 Glucose Level 102 70-105 MG/DL Calcium Level 10.0 8.5-10.1 MG/DL Corrected Calcium 9.7 8.5-10.1 MG/DL Total Bilirubin 0.4 0.1-1.0 MG/DL Aspartate Amino Transf (AST/SGOT) 20 5-34 U/L Alanine Aminotransferase (ALT/SGPT) 18 0-55 U/L Alkaline Phosphatase 87 40-136 U/L Total Protein 7.9 6.4-8.2 GM/DL Albumin 4.4 3.2-4.5 GM/DL Lipase 23 8-78 U/L My Orders Orders - MINDY HERNANDEZ POWER DIGGER OPERATOR Cbc With Automated Diff (03/06/20 14:04) Comprehensive Metabolic Panel (03/06/20 14:04) Lipase (03/06/20 14:04) Ua Culture If Indicated (03/06/20 14:04) Ed Iv/Invasive Line Start (03/06/20 14:04) Lactated Ringers (Lr 1000 Ml Iv Solution (03/06/20 14:15) Fentanyl Injection (Sublimaze Injection (03/06/20 14:15) Ct Abdomen/Pelvis W (03/06/20 14:20) Iohexol Injection (Omnipaque 350 Mg/Ml 1 (03/06/20 14:30) Received Contrast (Hold Metformin- Contr (03/06/20 14:30) Ns (Ivpb) (Sodium Chloride 0.9% Ivpb Bag (03/06/20 14:30) Medications Given in ED Current Medications Medications Dose Ordered Sig/Francisco J Route Start Time Stop Time Status Last Admin Dose Admin Fentanyl Citrate 50 mcg ONCE ONCE IVP 03/06/20 14:15 03/06/20 14:16 DC 03/06/20 14:36 50 MCG Iohexol 100 ml ONCE ONCE IV 03/06/20 14:30 03/06/20 14:31 DC 03/06/20 15:24 100 ML Sodium Chloride 100 ml ONCE ONCE IV 03/06/20 14:30 03/06/20 14:31 DC 03/06/20 15:24 100 ML Vital Signs/I&O 03/06/20 13:55 Temp 36.9 Pulse 108 Resp 18 B/P (MAP) 131/90 (104) Pulse Ox 99 Departure Communication (Admissions) Time/Spoke to Admitting Phy: 16:[address] Scott, would like to admit to hospitalist, consult surgery. Nothing by mouth, given enema, NG tube if still vomiting. Bowel rest and pain control. Spoke with Dr. BRADLEY and Dr. Bnods, both of whom are agreeable. Impression Primary Impression: Abdominal pain Qualified Codes: R10.9 - Unspecified abdominal pain Additional Impressions: ileus versus obstruction Ovarian cancer Qualified Codes: C56.9 - Malignant neoplasm of unspecified ovary Peritoneal carcinomatosis Disposition: ADMITTED INPATIENT Condition: Stable Admissions Decision to Admit Reason: Admit from ER (General) Decision to Admit/Date: March 06, 2020 Time/Decision to Admit Time: 16:35 Departure-Patient Inst. Referrals: CHRISTOPHER CRAWFORD DO (PCP/Family) Primary Care Physician MINDY HERNANDEZ POWER DIGGER OPERATOR March 06, 2020 14:13
[2020-03-06] MEDS ORDERED: LACTATED RINGERS 1,000 ML IV SCH (14:15)
[2020-03-06] MEDS ORDERED: fentaNYL INJECTION 100 MCG/2 ML AMP IVP ONE (14:15)
[2020-03-06] MEDS ORDERED: NS 100 ML (IVPB) BAG IV ONE (14:30)
[2020-03-06] MEDS ORDERED: HOLD METFORMIN - RECEIVED CONTRAST 20 ML VIAL IV SCH (14:30)
[2020-03-06] MEDS ORDERED: IOHEXOL 350 MG/ML 100 ML (OMNIPAQUE 350) VIAL IV ONE (14:30)
[2020-03-06 14:37] LABS: BASOPHILS % (AUTO) 0 % (0-10); EOSINOPHILS % (AUTO) 0 % (0-10); HEMATOCRIT 35 % (35-52); HEMOGLOBIN 11.6 G/DL (11.5-16.0); LYMPHOCYTES # (AUTO) 0.9 X 10^3 (1.0-4.0); LYMPHOCYTES % (AUTO) 15 % (12-44); MEAN CORPUSCULAR HEMOGLOBIN 32 PG (25-34); MEAN CORPUSCULAR HGB CONC 33 G/DL (32-36); MEAN CORPUSCULAR VOLUME 96 FL (80-99); MEAN PLATELET VOLUME 9.7 FL (7.4-10.4); MONOCYTES # (AUTO) 0.6 X 10^3 (0.0-1.0); MONOCYTES % (AUTO) 9 % (0-12); NEUTROPHILS # (AUTO) 4.7 X 10^3 (1.8-7.8); NEUTROPHILS % (AUTO) 76 % (42-75); PLATELET COUNT 383 10^3/uL (130-400); RED CELL DISTRIBUTION WIDTH 15.9 % (10.0-14.5); WHITE BLOOD COUNT 6.3 10^3/uL (4.3-11.0)
[2020-03-06 14:51] LABS: ALBUMIN 4.4 GM/DL (3.2-4.5); CHLORIDE 100 MMOL/L (98-107); POTASSIUM 3.6 MMOL/L (3.6-5.0); SODIUM 139 MMOL/L (135-145)
[2020-03-06 14:53] LABS: GLUCOSE 102 MG/DL (70-105); TOTAL PROTEIN 7.9 GM/DL (6.4-8.2)
[2020-03-06 14:54] LABS: CARBON DIOXIDE 27 MMOL/L (21-32)
[2020-03-06 14:55] LABS: BILIRUBIN,TOTAL 0.4 MG/DL (0.1-1.0)
[2020-03-06 14:57] LABS: ALKALINE PHOSPHATASE 87 U/L (40-136); GFR ESTIMATED > 60
[2020-03-06 14:58] LABS: BUN/CREATININE RATIO 20
[2020-03-06 15:00] LABS: ALANINE AMINOTRANSFERASE 18 U/L (0-55); LIPASE 23 U/L (8-78)
--- OUTSIDE RECORDS SUMMARY | 2020-03-06 15:25 | XMS REPORT | Encounter Summary ---
Author Author [facility] Organization [facility] Address Unknown Phone Unavailable Care Team Providers Care Boat Crew Deck Hand Name Role Phone Sixto Leos PCP Reason for Visit * Reason Comments Appointment Encounter Details Care Team Description Date Type Department Roxie Smith MD [address] [place] [address] [phone] Appointment 12/11/2019 Telephone [facility] [place] [address] [place] [phone] Social History Date Tobacco Use Types Packs/Day Years Used Never Smoker Smokeless Tobacco: Never Used Drinks/Week oz/Week Comments Alcohol Use 1 Glasses of wine 1.0 No Alcohol Habits Answer Date Recorded How often do you have a drink containing alcohol? Never 11/23/2018 How many drinks containing alcohol do you have on No t asked a typical day when you are drinking? How often do you have six or more drinks on one Not asked occasion? Sex Assigned at Date Recorded Not on file Industry Job Start Date Occupation Not on file Not on file Not on file Travel End Travel History Travel Start No recent travel history available. documented as of this encounter Functional Status Date of Assessment Functional Status Response 06/29/2019 Does the patient have a hearing impairment: No documented as of this encounter Miscellaneous Notes * Telephone Encounter - Asia Johnson RN - 12/11/2019 8:50 AM EMERGENCY ROOM TECH Received VM from patient, she is wondering if she still has an appointment with today. I returned her call and discussed that her appointment had be en cancelled on 11/14/[address] Smith's nurse based on the conversation that Lou had with that nurse about starting a new treatment plan with her local Onc ologist. Lou verbalized understanding and will call with additional needs. GENCY ROOM TECH documented in this encounter Plan of Treatment Not on filedocumented as of this encounter Goals Goal Patient Associated Recent Progress Patient-Stat Aut hor Goal Type Problems ed? Increase water intake Diet No Johnson Cole, RN documented as of this encounter Visit Diagnoses Not on filedocumented in this encounter
--- OUTSIDE RECORDS SUMMARY | 2020-03-06 15:25 | XMS REPORT | Encounter Summary ---
Author Author [facility] Organization [facility] Address Unknown Phone Unavailable Care Team Providers Care Link Trainer Operator Name Role Phone Sixto Leos PCP Reason for Visit * Reason Comments Other records Encounter Details Care Team Description Date Type Department Roxie Smith MD [address] [place] [address] [phone] Other (records) 09/07/2019 Telephone The [address] [phone] Social History Date Tobacco Use Types Packs/Day [...] encounter Miscellaneous Notes * Telephone Encounter - Ashley James RN - 09/07/2019 5:27 PM ARTIFICIAL FLOWERS SUPERVISOR Records put in for scanning and a copy has been given to Dr Smith for her rev iew. FICIAL FLOWERS SUPERVISOR documented in this encounter Plan of Treatment Not on filedocumented as of this encounter Goals Goal Patient Associated Recent Progress Patient-Stat Aut hor Goal Type Problems ed? Increase water intake Diet No Johnson Cole RN documented as of this encounter Visit Diagnoses Not on filedocumented in this encounter
--- OUTSIDE RECORDS SUMMARY | 2020-03-06 15:25 | XMS REPORT | Encounter Summary ---
Author Author [facility] Organization [facility] Address Unknown Phone Unavailable Care Team Providers Care Ict Support Technicians Name Role Phone Sixto Leos DO PCP Reason for Visit * Reason Comments Heme/Onc Care Encounter Details Care Team Description Date Type Department Roxie Smith MD [address] [place] [address] [phone] Heme/Onc Care 11/07/[address] The [address] [phone] Social History Date Tobacco Use Types Packs/Day [...] encounter Miscellaneous Notes * Telephone Encounter - Columba Blum RN - 11/07/2019 9:49 AM DIRECTOR OF ANALYTICS Left a message for the patient regarding Dr. Smith's suggestion. Provided offi ce number for follow up call on wether she wants to keep her appointment with Dr Margaret Smith or only follow with her Medical Oncologist at home. CTOR OF ANALYTICS * Telephone Encounter - Columba Blum RN - 11/07/2019 9:49 AM DIRECTOR OF ANALYTICS ----- Message from Roxie Smith MD sent at 11/03/2019 12:33 PM DIRECTOR OF ANALYTICS ----- Regarding: RE: RV Realistically, she does not need to follow up with me. She can follow up with her medical oncologist. Roxie Smith MD Digital Marketing Strategist Gynecology Oncology ----- Message ----- From: Columba Blum RN Sent: 11/01/2019 3:31 PM DIRECTOR OF ANALYTICS To: Roxie Smith MD, Ashley James RN, # Subject: RE: RV I called her and she start her new chemo tomorrow. She did not want to come next week as she is not sure how she will feel. In addition she wasn't to save her e nergy for her trip with her to [place] on 11/13-11/23. When she returns s he will be due for another cycle so we scheduled out into the middle of November . Would you instead like to see her after her 3rd cycle and interval CT? Or is t he middle november ok. I did request the imaging be sent and loaded to her art. She did ask why the visit is necessary as Dr. Boothe told her that this is not surgical currently. I mainly talked with her about follow up from the [facility] surgery and the [facility]. LAYTON Waterman Clinical Nurse Coordinator for Dr. Roxie Smith ----- Message ----- From: Roxie Smith MD Sent: 10/28/2019 3:07 PM DIRECTOR OF ANALYTICS To: Ashley James RN, Columba Turner RN Subject: RV She ws to have been seen by Clara on 10/11/2019. I need to get films and thenI need to see her this month. CTOR OF ANALYTICS documented in this encounter Plan of Treatment Not on filedocumented as of this encounter Goals Goal Patient Associated Recent Progress Patient-Stat Aut hor Goal Type Problems ed? Increase water intake Diet No Johnson Cole RN documented as of this encounter Visit Diagnoses Not on filedocumented in this encounter
--- OUTSIDE RECORDS SUMMARY | 2020-03-06 15:25 | XMS REPORT | Encounter Summary ---
Author Author [facility] Organization [facility] Address Unknown Phone Unavailable Care Team Providers Care Chief Medical Director Name Role Phone Sixto Leos DO PCP Reason for Visit * Reason Comments Records Request Encounter Details Care Team Description Date Type Department Roxie Smith MD [address] [place] [address] [phone] Records Request 10/26/2019 Telephone [address] [phone] Social History Date Tobacco Use Types Packs/Day [...] Miscellaneous Notes * Telephone Encounter - Columba Turner RN - 10/26/2019 2:11 PM [facility] BUSINESS ADMINISTRATOR records received from [facility] regarding on going care of patient. She is sta rting a new regimen of chemo on November 02. Records copied, placed in for scann ing, and a copy placed for review by Dr. Smith. [facility] BUSINESS ADMINISTRATOR documented in this encounter Plan of Treatment Not on filedocumented as of this encounter Goals Goal Patient Associated Recent Progress Patient-Stat Aut hor Goal Type Problems ed? Increase water intake Diet No Johnson Cole RN documented as of this encounter Visit Diagnoses Not on filedocumented in this encounter
--- OUTSIDE RECORDS SUMMARY | 2020-03-06 15:25 | XMS REPORT | Encounter Summary ---
Author Author [facility] Organization [facility] Address Unknown Phone Unavailable Care Team Providers Care Electrical Experimental Mechanic Name Role Phone Kurtisian Sixto PCP Encounter Details Care Team Description Date Type Department 09/27/2019 [facility] Encounter [facility] [address] [phone] Social History Date Tobacco Use Types Packs/Day [...] impairment: No documented as of this encounter Medications at Time of Discharge Start Date End Date Medication Sig Dispensed Refills 12/08/2018 acetaminophen (TYLENOL) Take two 30 tablet 3 500 mg tablet tablets by mouth every 8 hours as needed for Pain. Max of 4,000 mg of acetaminophen in 24 hours. 01/17/2019 diazePAM (VALIUM) 5 mg Take 5 mg by 0 tablet mouth at bedtime as needed for Sleep. 07/03/2019 docusate (COLACE) 100 mg Take one 180 capsule 3 capsule capsule by mouth twice daily. 07/03/2019 oxyCODONE (ROXICODONE, Take one 30 tablet 0 OXY-IR) 5 mg tablet tablet to two tablets by mouth every 4 hours as needed 07/03/2019 prochlorperazine maleate Take one 30 tablet 0 (COMPAZINE) 10 mg tablet tablet by mouth every 6 hours as needed. 03/01/2019 venlafaxine XR (EFFEXOR Take 75 mg by 1 XR) 75 mg capsule mouth daily. documented as of this encounter Plan of Treatment Not on filedocumented as of this encounter Goals Goal Patient Associated Recent Progress Patient-Stat Aut hor Goal Type Problems ed? Increase water intake Diet No Johnson Cole RN documented as of this encounter Procedures Comments Procedure Name Priority Date/Time Associated Diag nosis CT ABD/PEL EXTERNAL Routine 09/27/2019 IMAGING 1:50 PM MOHS SURGEON documented in this encounter Results * CT ABD/PEL EXTERNAL IMAGING (09/27/2019 1:50 PM MOHS SURGEON) Specimen Narrative Performed At This order has been auto finalized and does not contain a result. documented in this encounter Visit Diagnoses Not on filedocumented in this encounter
--- OUTSIDE RECORDS SUMMARY | 2020-03-06 15:25 | XMS REPORT | Encounter Summary ---
Author Author [facility] Organization [facility] Address Unknown Phone Unavailable Care Team Providers Care Equipment Operator Warehouse Name Role Phone Sixto Leos PCP Reason for Visit * Reason Comments Appointment Encounter Details Care Team Description Date Type Department Roxie Smith MD [address] [place] [address] [phone] Appointment 10/06/2019 Telephone [facility] [address] [place] [phone] Social History Date Tobacco Use Types Packs/Day [...] Telephone Encounter - Columba Turner RN - 10/06/2019 3:33 PM BENEFIT DIRECTOR Found a mass on colon on recent CT Get records from Dr. Boothe's office November 02 starts chemo Reschedule 122/18 - ask elli when FIT DIRECTOR documented in this encounter Plan of Treatment Not on filedocumented as of this encounter Goals Goal Patient Associated Recent Progress Patient-Stat Aut hor Goal Type Problems ed? Increase water intake Diet No Johnson Cole RN documented as of this encounter Visit Diagnoses Not on filedocumented in this encounter
--- OUTSIDE RECORDS SUMMARY | 2020-03-06 15:25 | XMS REPORT | Clinical Summary ---
Author Author [facility] Organization [facility] Address Unknown Phone Unavailable Care Team Providers Care Reporting Consultant Name Role Phone Dafne Sixto DO PCP Source Comments Some departments are not documenting in the electronic medical record. If you d o not see the information that you expected, contact Release of Information in [facility] [employer] Information Management department at [phone] for further assistan ce in locating additional records.[facility] Allergies No Known Allergies Medications End Date Status Medication Sig Dispensed Refills Start Date Active acetaminophen (TYLENOL) Take two 30 tablet 3 500 mg tablet tablets by 9 mouth every 8 hours as needed for Pain. Max of 4,000 mg of acetaminophen in 24 hours. Active diazePAM (VALIUM) 5 mg Take 5 mg by 0 01 tablet mouth at 9 bedtime as needed for Sleep. Active venlafaxine XR (EFFEXOR Take 75 mg by 1 XR) 75 mg capsule mouth daily. 9 Active docusate (COLACE) 100 mg Take one 180 capsule 3 0 capsule capsule by 9 mouth twice daily. Active oxyCODONE (ROXICODONE, Take one 30 tablet 0 OXY-IR) 5 mg tablet tablet to two 9 tablets by mouth every 4 hours as needed Active prochlorperazine maleate Take one 30 tablet 0 0 (COMPAZINE) 10 mg tablet tablet by 9 mouth every 6 hours as needed. 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 Per protocol will need next series in . 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 BRIP1 VUS Physician Info: Referring Physician: Dr. Heather cheema Contact Name & Number: Ana Luisa @ Medical Oncologist: Dr. Zambrano PCP: Dr. Juvenal Leos History of Present Illness: Ms Sandoval is a 58 yo , who was seen b y Dr. Man on 10/28/2018 for postmenopausal bleeding. An examination showed a endocervical polyp, which was removed. The final pathology showe d benign with granulation tissue formation. Pap was negative. HPV: not detected. On 11/03/2018 an ultrasound was done, du e to her symptoms, and demonstrated a complex right adnexal mass measuring 9.4x8.2x7.5 cm, likely ovarian. ET: 8 mm. This is suspicious for ovarian ne oplasm. No other abnormality is detected. CA 125 was drawn on 11/03/2018 and resulted 1,924.9. Patient does have a history or breast c ancer diagnosed 2014. She is s/p bilateral mastectomies, chemotherapy (d d ACx4, Taxol x4, then XRT) and currently on tamoxifen since 06/2015. Bal sprague states her last dose of tamoxifen was taken on 11/12/2018. On 11/02/2018 she saw her breast oncology , Dr. Zambrano for routine. A CA27-29 was drawn and was elevated at 2 13. He then ordered a PET scan. Breast examination was normal. The PET scan was done on 11/08/18 demonstrated abnormal hypermetabolism b ilateral adnexa. There is also uptake identified within the greater om entum. Ascites is present. Features are suggestive of ovarian neoplasm with peritoneal carcinomatosis. She subsequent had her CT Scan of the A /P on 11/09/2018, which showed a complex mass right adnexa, highly sugge stive of ovarian neoplasm, omental caking and abdominal and pelvic ascites . Features are suggestive of peritoneal carcinomatosis. No biopsy or aspiration has been done. Currently, the patient is having : thomas y satiety, crampy abdominal pain and bloating; some nausea and single ep isode of emesis over the past week. TREATMENT: 1. 11/17/2018: initial visit. 2. 11/23/2018: IR Biopsy 3. 11/24/2018: Here for preoperative vis it and discussion of HIPEC. Scheduled for surgery on 11/29/2018. 4. 11/29/2018: Resection of ovarian tub al primary peritoneal malignancy with tumor debulking of over 20 cm, ome ntectomy, bilateral diaphragmatic peritonectomy, abdominal and pelvic per itonectomy, bilateral salpingo-oophorectomy with radical abdo justin hysterectomy. Low anterior resection of the sigmoid colon and rect um with primary anastomosis. Protective loop ileostomy, proctosigmoi doscopy. Appendectomy. Splenectomy. Cholecystectomy. Heated intraperitonea l chemotherapy with installation of 100 mg/kg of cisplatin times 90 minutes . 5. 01/05/2019: Presents for Post op v isit #1. She will be obtaining her chemotherapy with Dr. Artis in [facility] urg. 6. 03/09/2019: Presents to the office; she is now 3 months from surgery. Chemotherapy: Status post 3 cycles of chemotherapy; C#3 given on 03/01/2019. Last CA125: 16.4 (02/08/2019). 7. 04/20/2019: Presents to office, now post 5 cycles of adjuvant Carboplatin/taxol chemotherapy on 2018. Last CA125: She thinks is 16. C#6 due on 05/03/2019. CT schedule d for today: CHEST: Stable subcentimeter bilateral pulmonary nodul es, unchanged since October 2015, which remain indeterminate and may be s cars and/or granulomas. Continued CT follow-up is recommended to document st ability. No thoracic lymphadenopathy.ABDOMEN AND PELVIS: P rior hysterectomy, bilateral salpingo-oophorectomy, low anterior res ection and anastomosis, and resection of multiple pelvic masses wit hout recurrent pelvic mass. Stable to slight decrease in scattered areas o f mild peritoneal thickening, which remains indeterminate and may be evolvi ng postoperative change or improving peritoneal metastatic disease. No abd ominopelvic lymphadenopathy. Options were discussed: Options for "m aintenance" include: 1. Decline maintenance and proceed with q 3 month follow up and CA125.2. Obtain approval for a PARPi (orlaparib) by Dr. Artis due to PRIP mutation. No real extensive data.3. [place] Trial; he re at [facility]. Would require initiation within a limited time point after thera py.She will discuss with Dr. Artis. If elects [place] trial, will n eed RV after C#[address] Oliveros doing the takedown [place]. She did not return after C#6, and had h er ileostomy taken down. 8. 07/20/2019: Presents to the office f or her 3 month visit. Since she was last seen: On 06/29/[address] Sarahi granadokosta took down her ileostomy. Pathology negative. Have no records; to start Lynparza on . 9. 10/27/2018: the patient did not appea r to keep her appointment that was scheduled for 10/11/2019. Got noted fr om Dr. Boothe from 09/28/2019. She was started on Olaparib early 07/2019 a nd did not get her medication in 08/2019 due to computer error. However , her CA125 drawn on 09/13/2019 was 122.6, up from 55.4 on 08/21/2019. Was 26.3 on 07/20/2019. A CT scan done on 09/27/2019 showed a questionable abno rmal soft tissue along the lateral wall of the ascending colon with small cystic component. Unfortunately, she completed her chemotherapy in , just 4 months prior. Therefore, she appears to be [place] resistant. I would recommend doxil/avastin. Will see her after C#2. PMH: Breast cancer 2014. Stage IIB. 1+L N per patient (not sentinel). Treated with chemotherapy, radiation ( ended) then tamoxifen. CA27-29 was 16 prior to her most recent one. Surgical Hx Surgery/Year: Bilateral mastectomies, 1 right (negative) and 12/08/2014 left (cancer) Reproductive History Menstrual Hx LMP: 11/2014 Having Periods: No Age at first period: [age] Hx Number of pregnancies: 3 Number of live births: 3 Age of first live : 37 Did you breastfeed: Yes If Yes, how long? 30 months total Oral Control: No Years: Infertility Medication: No Year/Med Name: Menopausal Hx Age of last period: 55 y/o due to chemo therapy Hormone Replacement Therapy: No Years: Health Maintenence Last Pap: 10/28/2018 Abn History of Pap: Denies Colonoscopy: 07/2015 Mammogram: 10/2014 PMH: 1. Any history of problems with heart/lung/kidney/liver/hepatitis/DM/th yroid disease/hematologic disorders/DVT: no SH: 1. Smoke: no 2. Drugs: no 3. ETOH: less than 1/week 4. Occupation: stay at home mom 5. Marital status: x 6. Last colonoscopy: 7. Last Mammogram: FH: 1. Cancer: Father-leukemia due to PCV; sister with blood cancer; brother with skin cancer; paunt stomach cancer and puncle had colon cancer. Resolved Problems Problem Noted Date Resolved Date Ileostomy present 06/29/2019 07/03/2019 Acute pain 12/01/2018 01/15/2019 Malignant neoplasm ablation encounter, goal debulking /cytoreduction 11/29/2018 01/15/2019 Encounters Care Team Description Date Type Specialty Roxie Smith MD Appointment 12/11/2019 Telephone Oncology from Last 3 Months Immunizations Name Administration Dates Next Due Hib conj vaccine, 4 dose 12/08/2018 (PRP-T) IM (ActHIB) Meningococcal Conjug 03/09/2019, 12/08/2018 Vaccine IM (Menveo) Allen Component 1 Meningococcal Conjug 03/09/2019, 12/08/2018 Vaccine IM (Menveo) [id number] Component 2 Meningococcal Group B 03/09/2019, 12/08/2018 Vaccine (4-Cmp) 2 Dose Regimen (Bexsero) Pneumococcal Vaccine 03/09/2019 (23-Makenna Adult) Pneumococcal 12/08/2018 Vaccine(13-Makenna Peds/immunocompromised adult) Family History Medical History Relation Name Comments Cancer Father Unknown to Patient Maternal Aunt Unknown to Patient Maternal Grandfather Unknown to Patient Maternal Grandmother Unknown to Patient Maternal Uncle Cancer Mother Cancer Paternal Aunt Unknown to Patient Paternal Grandfather Unknown to Patient Paternal Grandmother Cancer Paternal Uncle Cancer Sister Relation Name Status Comments Brother Alive Father Maternal Aunt Maternal Grandfather Maternal Grandmother Maternal Uncle Mother Paternal Aunt Paternal Grandfather Paternal Grandmother Paternal Uncle Sister Social History Date Tobacco Use Types Packs/Day [...] Travel Start No recent travel history available. Last Filed Vital Signs Reading Time Taken Comments Vital Sign 101/58 07/20/2019 9:54 AM CDT Blood Pressure 83 07/20/2019 9:54 AM CDT Pulse 36.8 C (98.2 F) 07/20/2019 9:54 AM CDT Temperature 14 07/12/2019 9:52 AM CDT Respiratory Rate 100% 07/20/2019 9:54 AM CDT Oxygen Saturation - - Inhaled Oxygen Concentration 56.6 kg (124 lb 12.8 oz) 07/20/2019 9:54 AM CDT Weight 159 cm (5' 2.6") 07/20/2019 9:54 AM CDT Height 22.39 07/20/2019 9:54 AM CDT Body Mass Index Plan of Treatment Health Maintenance Due Date Last Done Comments HIV SCREENING 1977 DTAP/TDAP VACCINES (1 - 1980 Tdap) HEPATITIS C SCREENING 1980 PHYSICAL (COMPREHENSIVE) 1980 EXAM CERVICAL CANCER SCREENING 1983 BREAST CANCER SCREENING 2002 COLORECTAL CANCER 2012 SCREENING SHINGLES RECOMBINANT 2012 VACCINE (1 of 2) INFLUENZA VACCINE 07/25/2020 Goals Goal Patient Associated Recent Progress Patient-Stat Aut hor Goal Type Problems ed? Increase water intake Diet No Johnson Cole RN Implants Device Identifier Shelf Expiration Date Model / Serial / L ot Implanted Type Area Manufactur er 06/24/2020 [id number] / N/A / [id number] Port Implantable 8 Float Point Unit Left: Chest C R Siom Intermediate - Sn/A BARD:ACCES Implanted: Qty: 1 on 01/10/2019 by Car Pickett Jr., MD at [facility] [place] Results Not on filefrom Last 3 Months Advance Directives Patient Umbrella Frame Maker Explanation Type Date Recorded Advance 11/29/2018 12:00 AM Directive/DPOA Date Inactivated Comments Code Status Date Activated 07/03/2019 4:58 PM Full Code 06/29/2019 12:07 PM Provider has discussed Code Status No, more discussi on w/Patient or Family? needed 12/08/2018 6:00 PM Full Code 12/04/2018 9:27 AM Provider has discussed Code Status No, discussion no t w/Patient or Family? necessary based on Dx 12/04/2018 9:27 AM Full Code 11/29/2018 11:50 PM Provider has discussed Code Status No, more discussi on w/Patient or Family? needed
--- OUTSIDE RECORDS SUMMARY | 2020-03-06 15:25 | XMS REPORT | Encounter Summary ---
Author Author [facility] Organization [facility] Address Unknown Phone Unavailable Care Team Providers Care Marine Railway Operator Name Role Phone Sixto Leos PCP Reason for Visit * Reason Comments Records Request Encounter Details Care Team Description Date Type Department Roxie Smith MD [address] [place] [address] [phone] Records Request 11/14/2019 Telephone The [address] [phone] Social History Date Tobacco Use Types Packs/Day [...] Telephone Encounter - Ashley James RN - 11/14/2019 3:55 PM MSWS Records received from [facility] [employer] and put in for scanning and a copy has been given to Dr Smith for her review. documented in this encounter Plan of Treatment Not on filedocumented as of this encounter Goals Goal Patient Associated Recent Progress Patient-Stat Aut hor Goal Type Problems ed? Increase water intake Diet No Johnson Cole RN documented as of this encounter Visit Diagnoses Not on filedocumented in this encounter
--- OUTSIDE RECORDS SUMMARY | 2020-03-06 15:26 | XMS REPORT | Continuity of Care Document ---
Author Organization Unknown Address Unknown Phone Unavailable Allergies Active Description Code Type Severity Reaction Onset Reported/Identified Relationship to Patient Clinical Status Yes No Allergy Information Available [id number] Drug Allergy Unknown N/A 019 Medications There is no data. 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( BEATRICE LUO Ot Z90.81 ACQUIRED ABSENCE OF SPLEEN PUJABEATRICE Ot Z92.21 PERSONAL HISTORY OF ANTINEOPLASTIC CHEMO BEATRICE LUO Ot Z92.3 PERSONAL HISTORY OF IRRADIATION 06/20/2015 KEENA DU MD Ot 174.4 07/24/2015 KEENA DU MD Ot 174.4 MAL DAVE BREAST UP-OUTER 07/24/2015 KEENA DU MD Ot V58.0 ENCOUNTER FOR RADIOTHERAPY 08/28/2015 KEENA DU MD Ot 174.4 09/25/2015 KEENA DU MD Ot C50.4 19 10/28/2018 KEENA DU MD Ot C50.4 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 O 11/02/2018 KEENA DU MD Ot C50.4 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 O 11/04/2018 ALICIA DO, TEMITOPE C Ot C50.9 19 MALIGNANT NEOPLASM OF UNSP SITE OF UNSPE 11/04/2018 ALICIA DO, TEMITOPE C Ot N84.0 POLYP OF CORPUS UTERI 11/04/2018 ALICIA DO, TEMITOPE C Ot Z79.8 10 LNG TRM (CRNT) USE OF SLCTV ESTROG COMMUNICATIONS DEPARTMENT HEAD 11/15/2018 JACKELIN LEONE, [place] V Ot R19.00 INTRA-ABD AND PELVIC SWELLING, MASS AND 11/15/2018 JACKELIN LEONE, [place] V Ot Z85.3 PERSONAL HISTORY OF MALIGNANT NEOPLASM O 12/14/2018 ALICIA DO, TEMITOPE C Ot C50.9 19 MALIGNANT NEOPLASM OF UNSP SITE OF UNSPE 12/14/2018 ALICIA DO, TEMITOPE C Ot N84.0 POLYP OF CORPUS UTERI 12/14/2018 ALICIA DO TEMITOPE C Ot Z79.8 10 LNG TRM (CRNT) USE OF SLCTV ESTROG COMMUNICATIONS DEPARTMENT HEAD 01/06/2019 KEENA DU MD Ot C50.4 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 O 01/06/2019 ALICIA DO, TEMITOPE C Ot C50.9 19 MALIGNANT NEOPLASM OF UNSP SITE OF UNSPE 01/06/2019 ALICIA DO, TEMITOPE C Ot N84.0 POLYP OF CORPUS UTERI 01/06/2019 ALICIA DO TEMITOPE C Ot Z79.8 10 LNG TRM (CRNT) USE OF SLCTV ESTROG COMMUNICATIONS DEPARTMENT HEAD 01/06/2019 JACKELIN ELONE, [place] V Ot R19.00 INTRA-ABD AND PELVIC SWELLING, MASS AND 01/06/2019 JACKELIN LEONE, [place] V Ot Z85.3 PERSONAL HISTORY OF MALIGNANT NEOPLASM O 01/06/2019 ALICIA DO, TEMITOPE C Ot C50.9 19 MALIGNANT NEOPLASM OF UNSP SITE OF UNSPE 01/06/2019 ALICIA DO TEMITOPE C Ot N83.8 OTH NONINFLAMMATORY DISORD OF OVARY, FAL 01/06/2019 ALICIA DO, TEMITOPE C Ot N84.0 POLYP OF CORPUS UTERI 01/06/2019 ALICIA DO TEMITOPE C Ot R18.8 OTHER ASCITES 01/17/2019 KEENA DU MD Ot C50.4 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 O 01/17/2019 TEMITOPE ALICIA DO Ot C50.9 19 MALIGNANT NEOPLASM OF UNSP SITE OF UNSPE 01/17/2019 ALICIA DOTEMITOPE Ot N84.0 POLYP OF CORPUS UTERI 01/17/2019 TEMITOPE ALICIA DO Ot Z79.8 10 LNG TRM (CRNT) USE OF SLCTV ESTROG COMMUNICATIONS DEPARTMENT HEAD 01/17/2019 JACKELIN LEONE, [place] V Ot R19.00 INTRA-ABD AND PELVIC SWELLING, MASS AND 01/17/2019 JACKELIN LEONE, [place] V Ot Z85.3 PERSONAL HISTORY OF MALIGNANT NEOPLASM O 01/17/2019 ALICIA DOTEMITOPE Ot C50.9 19 MALIGNANT NEOPLASM OF UNSP SITE OF UNSPE 01/17/2019 ALICIA DOTEMITOPE Ot N83.8 OTH NONINFLAMMATORY DISORD OF OVARY, FAL 01/17/2019 TEMITOPE ALICIA DO Ot N84.0 POLYP OF CORPUS UTERI 01/17/2019 TEMITOPE ALICIA DO Ot R18.8 OTHER ASCITES 01/18/2019 BEATRICE LUO Ot C56.1 MALIGNANT NEOPLASM OF RIGHT OVARY 01/18/2019 BEATRICE LUO Ot 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 01/18/2019 BEATRICE LUO Ot Z80.0 FAMILY HISTORY OF MALIGNANT NEOPLASM OF 01/18/2019 BEATRICE LUO Ot Z80.3 FAMILY HISTORY OF MALIGNANT NEOPLASM OF 01/18/2019 BEATRICE LUO Ot Z85.3 PERSONAL HISTORY OF MALIGNANT NEOPLASM O 01/18/2019 BEATRICE LUO Ot Z90.13 ACQUIRED ABSENCE OF BILATERAL BREASTS AN 01/18/2019 BEATRICE LUO Ot 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( 01/18/2019 BEATRICE LUO Ot Z90.81 ACQUIRED ABSENCE OF SPLEEN 01/18/2019 BEATRICE LUO Ot Z92.21 PERSONAL HISTORY OF ANTINEOPLASTIC CHEMO 01/18/2019 BEATRICE LUO Ot Z92.3 PERSONAL HISTORY OF IRRADIATION 01/18/2019 BEATRICE LUO Ot C56.1 MALIGNANT NEOPLASM OF RIGHT OVARY 01/18/2019 BEATRICE LUO Ot 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 01/18/2019 BEATRICE LUO Ot Z80.0 FAMILY HISTORY OF MALIGNANT NEOPLASM OF 01/18/2019 BEATRICE LUO N Ot Z80.3 FAMILY HISTORY OF MALIGNANT NEOPLASM OF 01/18/2019 BEATRICE LUO N Ot Z85.3 PERSONAL HISTORY OF MALIGNANT NEOPLASM O 01/18/2019 BEATRICE LUO N Ot Z90.13 ACQUIRED ABSENCE OF BILATERAL BREASTS AN 01/18/2019 BEATRICE LUO N Ot 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( 01/18/2019 BEATRICE LUO N Ot Z90.81 ACQUIRED ABSENCE OF SPLEEN 01/18/2019 BEATRICE LUO N Ot Z92.21 PERSONAL HISTORY OF ANTINEOPLASTIC CHEMO 01/18/2019 BEATRICE LUO N Ot Z92.3 PERSONAL HISTORY OF IRRADIATION 01/23/2019 BEATRICE LUO N Ot C56.1 MALIGNANT NEOPLASM OF RIGHT OVARY 01/23/2019 BEATRICE LUO N Ot 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 01/23/2019 BEATRICE LUO N Ot Z51.11 ENCOUNTER FOR ANTINEOPLASTIC CHEMOTHERAP 01/23/2019 BEATRICE LUO N Ot Z80.0 FAMILY HISTORY OF MALIGNANT NEOPLASM OF 01/23/2019 BEATRICE LUO N Ot Z80.3 FAMILY HISTORY OF MALIGNANT NEOPLASM OF 01/23/2019 BEATRICE LUO N Ot Z85.3 PERSONAL HISTORY OF MALIGNANT NEOPLASM O 01/23/2019 BEATRICE LUO N Ot Z90.13 ACQUIRED ABSENCE OF BILATERAL BREASTS AN 01/23/2019 BEATRICE LUO N Ot 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( 01/23/2019 BEATRICE LUO N Ot Z90.81 ACQUIRED ABSENCE OF SPLEEN 01/23/2019 BEATRICE LUO N Ot Z92.21 PERSONAL HISTORY OF ANTINEOPLASTIC CHEMO 01/23/2019 BEATRICE LUO N Ot Z92.3 PERSONAL HISTORY OF IRRADIATION 01/25/2019 BEATRICE LUO N Ot C56.1 MALIGNANT NEOPLASM OF RIGHT OVARY 01/25/2019 BEATRICE LUO N Ot 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 01/25/2019 BEATRICE LUO N Ot Z51.11 ENCOUNTER FOR ANTINEOPLASTIC CHEMOTHERAP 01/25/2019 BEATRICE LUO N Ot Z80.0 FAMILY HISTORY OF MALIGNANT NEOPLASM OF 01/25/2019 BEATRICE LUO N Ot Z80.3 FAMILY HISTORY OF MALIGNANT NEOPLASM OF 01/25/2019 PUJA BEATRICE N Ot Z85.3 PERSONAL HISTORY OF MALIGNANT NEOPLASM O 01/25/2019 PUJA BEATRICE N Ot Z90.13 ACQUIRED ABSENCE OF BILATERAL BREASTS AN 01/25/2019 BEATRICE LUO N Ot 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( 01/25/2019 PUJA BEATRICE Waterman Ot Z90.81 ACQUIRED ABSENCE OF SPLEEN 01/25/2019 PUJA BEATRICE Waterman Ot Z92.21 PERSONAL HISTORY OF ANTINEOPLASTIC CHEMO 01/25/2019 PUJA BEATRICE N Ot Z92.3 PERSONAL HISTORY OF IRRADIATION 01/27/2019 ALICIA DO, TEMITOPE C Ot C50.9 19 MALIGNANT NEOPLASM OF UNSP SITE OF UNSPE 01/27/2019 ALICIA DO, TEMITOPE C Ot N83.8 OTH NONINFLAMMATORY DISORD OF OVARY, FAL 01/27/2019 ALICIA DO, TEMITOPE C Ot N84.0 POLYP OF CORPUS UTERI 01/27/2019 ALICIA DO, TEMITOPE C Ot R18.8 OTHER ASCITES 01/27/2019 ALICIA DO, TEMITOPE C Ot C50.9 19 MALIGNANT NEOPLASM OF UNSP SITE OF UNSPE 01/27/2019 ALICIA DO, TEMITOPE C Ot N83.8 OTH NONINFLAMMATORY DISORD OF OVARY, FAL 01/27/2019 ALICIA DO, TEMITOPE C Ot N84.0 POLYP OF CORPUS UTERI 01/27/2019 ALICIA DO, TEMITOPE C Ot R18.8 OTHER ASCITES 02/04/2019 PUJA BEATRICE Waterman Ot C56.1 MALIGNANT NEOPLASM OF RIGHT OVARY 02/04/2019 PUJABEATRICE N Ot 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 02/04/2019 PUJA BEATRICE Waterman Ot Z51.11 ENCOUNTER FOR ANTINEOPLASTIC CHEMOTHERAP 02/04/2019 PUJA BEATRICE N Ot Z80.0 FAMILY HISTORY OF MALIGNANT NEOPLASM OF 02/04/2019 PUJA, BEATRICE N Ot Z80.3 FAMILY HISTORY OF MALIGNANT NEOPLASM OF 02/04/2019 PUJA BEATRICE N Ot Z85.3 PERSONAL HISTORY OF MALIGNANT NEOPLASM O 02/04/2019 PUJA BEATRICE N Ot Z90.13 ACQUIRED ABSENCE OF BILATERAL BREASTS AN 02/04/2019 PUJA BEATRICE N Ot 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( 02/04/2019 PUJABEATRICE Ot Z90.81 ACQUIRED ABSENCE OF SPLEEN 02/04/2019 PUJABEATRICE Ot Z92.21 PERSONAL HISTORY OF ANTINEOPLASTIC CHEMO 02/04/2019 PUJABEATRICE Ot Z92.3 PERSONAL HISTORY OF IRRADIATION 02/07/2019 FLORIAN LEONE, KEENA Torres Ot C50.4 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 O 02/07/2019 ALICIA DO TEMITOPE C Ot C50.9 19 MALIGNANT NEOPLASM OF UNSP SITE OF UNSPE 02/07/2019 ALICIA DO TEMITOPE C Ot N84.0 POLYP OF CORPUS UTERI 02/07/2019 MARAL DOTEMITOPE C Ot Z79.8 10 LNG TRM (CRNT) USE OF SLCTV ESTROG COMMUNICATIONS DEPARTMENT HEAD 02/07/2019 JACKELIN LEONE, [place] V Ot R19.00 INTRA-ABD AND PELVIC SWELLING, MASS AND 02/07/2019 JACKELIN LEONE, [place] V Ot Z85.3 PERSONAL HISTORY OF MALIGNANT NEOPLASM O 02/07/2019 PUJABEATRICE Ot C56.1 MALIGNANT NEOPLASM OF RIGHT OVARY 02/07/2019 PUJABEATRICE Ot 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 02/07/2019 PUJABEATRICE Ot Z51.11 ENCOUNTER FOR ANTINEOPLASTIC CHEMOTHERAP 02/07/2019 PUJABEATRICE Ot Z80.0 FAMILY HISTORY OF MALIGNANT NEOPLASM OF 02/07/2019 PUJABEATRICE Ot Z80.3 FAMILY HISTORY OF MALIGNANT NEOPLASM OF 02/07/2019 PUJABEATRICE Ot Z85.3 PERSONAL HISTORY OF MALIGNANT NEOPLASM O 02/07/2019 PUJABEATRICE Ot Z90.13 ACQUIRED ABSENCE OF BILATERAL BREASTS AN 02/07/2019 PUJABEATRICE Ot 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( 02/07/2019 BEATRICE LUO Ot Z90.81 ACQUIRED ABSENCE OF SPLEEN 02/07/2019 BEATRICE LUO Ot Z92.21 PERSONAL HISTORY OF ANTINEOPLASTIC CHEMO 02/07/2019 BEATRICE LUO Ot Z92.3 PERSONAL HISTORY OF IRRADIATION 02/08/2019 FLORIAN LEONE, KEENA Torres Ot C50.4 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 O 02/08/2019 TEMITOPE ALICIA DO Ot C50.9 19 MALIGNANT NEOPLASM OF UNSP SITE OF UNSPE 02/08/2019 TEMITOPE ALICIA DO Ot N84.0 POLYP OF CORPUS UTERI 02/08/2019 TEMITOPE ALICIA DO Ot Z79.8 10 LNG TRM (CRNT) USE OF SLCTV ESTROG COMMUNICATIONS DEPARTMENT HEAD 02/08/2019 JACKELIN LEONE, [place] V Ot R19.00 INTRA-ABD AND PELVIC SWELLING, MASS AND 02/08/2019 JACKELIN LEONE, [place] V Ot Z85.3 PERSONAL HISTORY OF MALIGNANT NEOPLASM O 02/08/2019 PUJABEATRICE Ot C56.1 MALIGNANT NEOPLASM OF RIGHT OVARY 02/08/2019 BEATRICE LUO Ot 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 02/08/2019 PUJABEATRICE Ot Z51.11 ENCOUNTER FOR ANTINEOPLASTIC CHEMOTHERAP 02/08/2019 BEATRICE LUO Ot Z80.0 FAMILY HISTORY OF MALIGNANT NEOPLASM OF 02/08/2019 PUJABEATRICE Ot Z80.3 FAMILY HISTORY OF MALIGNANT NEOPLASM OF 02/08/2019 PUJABEATRICE Ot Z85.3 PERSONAL HISTORY OF MALIGNANT NEOPLASM O 02/08/2019 PUJABEATRICE Ot Z90.13 ACQUIRED ABSENCE OF BILATERAL BREASTS AN 02/08/2019 PUJABEATRICE Ot 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( 02/08/2019 BEATRICE LUO Ot Z90.81 ACQUIRED ABSENCE OF SPLEEN 02/08/2019 BEATRICE LUO Ot Z92.21 PERSONAL HISTORY OF ANTINEOPLASTIC CHEMO 02/08/2019 BEATRICE LUO Ot Z92.3 PERSONAL HISTORY OF IRRADIATION 02/09/2019 CHRISTOPHER CRAWFORD DO Ot C56.1 MALIGNANT NEOPLASM OF RIGHT OVARY 02/09/2019 CHRISTOPHER CRAWFORD DO Ot D70.8 OTHER NEUTROPENIA 02/09/2019 CHRISTOPHER CRAWFORD DO Ot Z79.899 OTHER INTERMEDIATE (CURRENT) DRUG THERAPY 02/09/2019 JACKELIN LEONE, [place] V Ot R19.00 INTRA-ABD AND PELVIC SWELLING, MASS AND 02/09/2019 JACKELIN LEONE, [place] V Ot Z85.3 PERSONAL HISTORY OF MALIGNANT NEOPLASM O 02/09/2019 PUJA, BOBAN N Ot C56.1 MALIGNANT NEOPLASM OF RIGHT OVARY 02/09/2019 BEATRICE LUO Columba Ot 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 02/09/2019 BEATRICE LUO [place] Ot Z51.11 ENCOUNTER FOR ANTINEOPLASTIC CHEMOTHERAP 02/09/2019 BEATRICE LUO Columba Ot Z80.0 FAMILY HISTORY OF MALIGNANT NEOPLASM OF 02/09/2019 BEATRICE LUO [place]a Ot Z80.3 FAMILY HISTORY OF MALIGNANT NEOPLASM OF 02/09/2019 BEATRICE LUO Columba Ot Z85.3 PERSONAL HISTORY OF MALIGNANT NEOPLASM O 02/09/2019 BEATRICE ULO Columba Ot Z90.13 ACQUIRED ABSENCE OF BILATERAL BREASTS AN 02/09/2019 BEATRICE LUO Columba Ot 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( 02/09/2019 PUJA BEATRICE Waterman Ot Z90.81 ACQUIRED ABSENCE OF SPLEEN 02/09/2019 PUJA BEATRICE Waterman Ot Z92.21 PERSONAL HISTORY OF ANTINEOPLASTIC CHEMO 02/09/2019 BEATRICE LUO Columba Ot Z92.3 PERSONAL HISTORY OF IRRADIATION 02/13/2019 FLORIAN LEONE, KEENA E Ot C50.4 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 O 02/13/2019 TEMITOPE ALICIA DO Ot C50.9 19 MALIGNANT NEOPLASM OF UNSP SITE OF UNSPE 02/13/2019 TEMITOPE ALICIA DO Ot N84.0 POLYP OF CORPUS UTERI 02/13/2019 TEMITOPE ALICIA DO Ot Z79.8 10 LNG TRM (CRNT) USE OF SLCTV ESTROG COMMUNICATIONS DEPARTMENT HEAD 02/13/2019 JACKELIN LEONE, [place] V Ot R19.00 INTRA-ABD AND PELVIC SWELLING, MASS AND 02/13/2019 JACKELIN LEONE, [place] V Ot Z85.3 PERSONAL HISTORY OF MALIGNANT NEOPLASM O 02/13/2019 BEATRICE LUO Columba Ot C56.1 MALIGNANT NEOPLASM OF RIGHT OVARY 02/13/2019 PUJA BEATRICE Waterman Ot 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 02/13/2019 BEATRICE LUO Columba Ot Z51.11 ENCOUNTER FOR ANTINEOPLASTIC CHEMOTHERAP 02/13/2019 BEATRICE LUO Columba Ot Z80.0 FAMILY HISTORY OF MALIGNANT NEOPLASM OF 02/13/2019 PUJA MOISEGEOVANI Columba Ot Z80.3 FAMILY HISTORY OF MALIGNANT NEOPLASM OF 02/13/2019 BEATRICE LUO N Ot Z85.3 PERSONAL HISTORY OF MALIGNANT NEOPLASM O 02/13/2019 BEATRICE LUO N Ot Z90.13 ACQUIRED ABSENCE OF BILATERAL BREASTS AN 02/13/2019 BEATRICE LUO N Ot 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( 02/13/2019 BEATRICE LUO N Ot Z90.81 ACQUIRED ABSENCE OF SPLEEN 02/13/2019 BEATRICE LUO N Ot Z92.21 PERSONAL HISTORY OF ANTINEOPLASTIC CHEMO 02/13/2019 BEATRICE LUO N Ot Z92.3 PERSONAL HISTORY OF IRRADIATION 02/13/2019 KELLENBERGER DO, CHRISTOPHER D Ot C56.1 MALIGNANT NEOPLASM OF RIGHT OVARY 02/13/2019 KELLENBERGER DO, CHRISTOPHER D Ot D70.8 OTHER NEUTROPENIA 02/13/2019 KELLENBERGER DO, CHRISTOPHER D Ot Z79.899 OTHER MUSEUM ATTENDANT (CURRENT) DRUG THERAPY 02/13/2019 BEATRICE LUO N Ot C56.1 MALIGNANT NEOPLASM OF RIGHT OVARY 02/13/2019 BEATRICE LUO N Ot 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 02/13/2019 BEATRICE LUO N Ot Z51.11 ENCOUNTER FOR ANTINEOPLASTIC CHEMOTHERAP 02/13/2019 BEATRICE LUO N Ot Z80.0 FAMILY HISTORY OF MALIGNANT NEOPLASM OF 02/13/2019 BEATRICE LUO N Ot Z80.3 FAMILY HISTORY OF MALIGNANT NEOPLASM OF 02/13/2019 BEATRICE LUO N Ot Z85.3 PERSONAL HISTORY OF MALIGNANT NEOPLASM O 02/13/2019 BEATRICE LUO N Ot Z90.13 ACQUIRED ABSENCE OF BILATERAL BREASTS AN 02/13/2019 BEATRICE LUO N Ot 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( 02/13/2019 BEATRICE LUO N Ot Z90.81 ACQUIRED ABSENCE OF SPLEEN 02/13/2019 BEATRICE LUO N Ot Z92.21 PERSONAL HISTORY OF ANTINEOPLASTIC CHEMO 02/13/2019 BEATRICE LUO N Ot Z92.3 PERSONAL HISTORY OF IRRADIATION 03/03/2019 Ot C56.1 ZOE GNANT NEOPLASM OF RIGHT OVARY 03/03/2019 Ot C56.2 ZOE GNANT NEOPLASM OF LEFT OVARY 03/03/2019 Ot Z51.11 ENC OUNTER FOR ANTINEOPLASTIC CHEMOTHERAP 03/03/2019 Ot Z80.0 FAMI LY HISTORY OF MALIGNANT NEOPLASM OF 03/03/2019 Ot Z80.3 FAMI LY HISTORY OF MALIGNANT NEOPLASM OF 03/03/2019 Ot Z85.3 PERS ONAL HISTORY OF MALIGNANT NEOPLASM O 03/03/2019 Ot Z90.13 ACQ UIRED ABSENCE OF BILATERAL BREASTS AN 03/03/2019 Ot Z90.79 ACQ UIRED ABSENCE OF OTHER GENITAL ORGAN( 03/03/2019 Ot Z90.81 ACQ UIRED ABSENCE OF SPLEEN 03/03/2019 Ot Z92.21 PER EFRAÍN HISTORY OF ANTINEOPLASTIC CHEMO 03/03/2019 Ot Z92.3 PERS ONAL HISTORY OF IRRADIATION 03/03/2019 Ot C56.1 ZOE GNANT NEOPLASM OF RIGHT OVARY 03/03/2019 Ot C56.2 ZOE GNANT NEOPLASM OF LEFT OVARY 03/03/2019 Ot Z51.11 ENC OUNTER FOR ANTINEOPLASTIC CHEMOTHERAP 03/03/2019 Ot Z80.0 FAMI LY HISTORY OF MALIGNANT NEOPLASM OF 03/03/2019 Ot Z80.3 FAMI LY HISTORY OF MALIGNANT NEOPLASM OF 03/03/2019 Ot Z85.3 PERS ONAL HISTORY OF MALIGNANT NEOPLASM O 03/03/2019 Ot Z90.13 ACQ UIRED ABSENCE OF BILATERAL BREASTS AN 03/03/2019 Ot Z90.79 ACQ UIRED ABSENCE OF OTHER GENITAL ORGAN( 03/03/2019 Ot Z90.81 ACQ UIRED ABSENCE OF SPLEEN 03/03/2019 Ot Z92.21 PER EFRAÍN HISTORY OF ANTINEOPLASTIC CHEMO 03/03/2019 Ot Z92.3 PERS ONAL HISTORY OF IRRADIATION 03/22/2019 Ot C56.1 ZOE GNANT NEOPLASM OF RIGHT OVARY 03/22/2019 Ot C56.2 ZOE GNANT NEOPLASM OF LEFT OVARY 03/22/2019 Ot Z51.11 ENC OUNTER FOR ANTINEOPLASTIC CHEMOTHERAP 03/22/2019 Ot Z80.0 FAMI LY HISTORY OF MALIGNANT NEOPLASM OF 03/22/2019 Ot Z80.3 FAMI LY HISTORY OF MALIGNANT NEOPLASM OF 03/22/2019 Ot Z85.3 PERS ONAL HISTORY OF MALIGNANT NEOPLASM O 03/22/2019 Ot Z90.13 ACQ UIRED ABSENCE OF BILATERAL BREASTS AN 03/22/2019 Ot Z90.79 ACQ UIRED ABSENCE OF OTHER GENITAL ORGAN( 03/22/2019 Ot Z90.81 ACQ UIRED ABSENCE OF SPLEEN 03/22/2019 Ot Z92.21 PER EFRAÍN HISTORY OF ANTINEOPLASTIC CHEMO 03/22/2019 Ot Z92.3 PERS ONAL HISTORY OF IRRADIATION 03/23/2019 BEATRICE LUO N Ot C56.1 MALIGNANT NEOPLASM OF RIGHT OVARY 03/23/2019 BEATRICE LUO N Ot 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 03/23/2019 BEATRICE LUO N Ot Z51.11 ENCOUNTER FOR ANTINEOPLASTIC CHEMOTHERAP 03/23/2019 BEATRICE LUO N Ot Z80.0 FAMILY HISTORY OF MALIGNANT NEOPLASM OF 03/23/2019 BEATRICE LUO N Ot Z80.3 FAMILY HISTORY OF MALIGNANT NEOPLASM OF 03/23/2019 BEATRICE LUO N Ot Z85.3 PERSONAL HISTORY OF MALIGNANT NEOPLASM O 03/23/2019 BEATRICE LUO N Ot Z90.13 ACQUIRED ABSENCE OF BILATERAL BREASTS AN 03/23/2019 BEATRICE LUO N Ot 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( 03/23/2019 BEATRICE LUO N Ot Z90.81 ACQUIRED ABSENCE OF SPLEEN 03/23/2019 BEATRICE LUO N Ot Z92.21 PERSONAL HISTORY OF ANTINEOPLASTIC CHEMO 03/23/2019 BEATRICE LUO N Ot Z92.3 PERSONAL HISTORY OF IRRADIATION 04/11/2019 BEATRICE LUO N Ot C56.1 MALIGNANT NEOPLASM OF RIGHT OVARY 04/11/2019 BEATRICE LUO N Ot 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 04/11/2019 BEATRICE LUO N Ot Z51.11 ENCOUNTER FOR ANTINEOPLASTIC CHEMOTHERAP 04/11/2019 BEATRICE LUO N Ot Z80.0 FAMILY HISTORY OF MALIGNANT NEOPLASM OF 04/11/2019 BEATRICE LUO N Ot Z80.3 FAMILY HISTORY OF MALIGNANT NEOPLASM OF 04/11/2019 BEATRICE LUO N Ot Z85.3 PERSONAL HISTORY OF MALIGNANT NEOPLASM O 04/11/2019 BEATRICE LUO N Ot Z90.13 ACQUIRED ABSENCE OF BILATERAL BREASTS AN 04/11/2019 BEATRICE LUO N Ot 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( 04/11/2019 BEATRICE LUO N Ot Z90.81 ACQUIRED ABSENCE OF SPLEEN 04/11/2019 BEATRICE LUO N Ot Z92.21 PERSONAL HISTORY OF ANTINEOPLASTIC CHEMO 04/11/2019 BEATRICE LUO N Ot Z92.3 PERSONAL HISTORY OF IRRADIATION 04/12/2019 BEATRICE LUO N Ot C56.1 MALIGNANT NEOPLASM OF RIGHT OVARY 04/12/2019 BEATRICE LUO N Ot 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 04/12/2019 BEATRICE LUO N Ot Z51.11 ENCOUNTER FOR ANTINEOPLASTIC CHEMOTHERAP 04/12/2019 BEATRICE LUO N Ot Z80.0 FAMILY HISTORY OF MALIGNANT NEOPLASM OF 04/12/2019 BEATRICE LUO N Ot Z80.3 FAMILY HISTORY OF MALIGNANT NEOPLASM OF 04/12/2019 BEATRICE LUO N Ot Z85.3 PERSONAL HISTORY OF MALIGNANT NEOPLASM O 04/12/2019 BEATRICE LUO N Ot Z90.13 ACQUIRED ABSENCE OF BILATERAL BREASTS AN 04/12/2019 BEATRICE LUO N Ot 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( 04/12/2019 BEATRICE LUO N Ot Z90.81 ACQUIRED ABSENCE OF SPLEEN 04/12/2019 BEATRICE LUO N Ot Z92.21 PERSONAL HISTORY OF ANTINEOPLASTIC CHEMO 04/12/2019 BEATRICE LUO N Ot Z92.3 PERSONAL HISTORY OF IRRADIATION 04/12/2019 Ot C56.1 ZOE GNANT NEOPLASM OF RIGHT OVARY 04/12/2019 Ot C56.2 ZOE GNANT NEOPLASM OF LEFT OVARY 04/12/2019 Ot Z51.11 ENC OUNTER FOR ANTINEOPLASTIC CHEMOTHERAP 04/12/2019 Ot Z80.0 FAMI LY HISTORY OF MALIGNANT NEOPLASM OF 04/12/2019 Ot Z80.3 FAMI LY HISTORY OF MALIGNANT NEOPLASM OF 04/12/2019 Ot Z85.3 PERS ONAL HISTORY OF MALIGNANT NEOPLASM O 04/12/2019 Ot Z90.13 ACQ UIRED ABSENCE OF BILATERAL BREASTS AN 04/12/2019 Ot Z90.79 ACQ UIRED ABSENCE OF OTHER GENITAL ORGAN( 04/12/2019 Ot Z90.81 ACQ UIRED ABSENCE OF SPLEEN 04/12/2019 Ot Z92.21 PER EFRAÍN HISTORY OF ANTINEOPLASTIC CHEMO 04/12/2019 Ot Z92.3 PERS ONAL HISTORY OF IRRADIATION 04/13/2019 BEATRICE LUO N Ot C56.1 MALIGNANT NEOPLASM OF RIGHT OVARY 04/13/2019 BEATRICE LUO N Ot 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 04/13/2019 PUJA, BOBAN N Ot Z51.11 ENCOUNTER FOR ANTINEOPLASTIC CHEMOTHERAP 04/13/2019 BEATRICE LUO N Ot Z80.0 FAMILY HISTORY OF MALIGNANT NEOPLASM OF 04/13/2019 BEATRICE LUO N Ot Z80.3 FAMILY HISTORY OF MALIGNANT NEOPLASM OF 04/13/2019 BEATRICE LUO N Ot Z85.3 PERSONAL HISTORY OF MALIGNANT NEOPLASM O 04/13/2019 BEATRICE LUO N Ot Z90.13 ACQUIRED ABSENCE OF BILATERAL BREASTS AN 04/13/2019 BEATRICE LUO N Ot 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( 04/13/2019 BEATRICE LUO N Ot Z90.81 ACQUIRED ABSENCE OF SPLEEN 04/13/2019 BEATRICE LUO N Ot Z92.21 PERSONAL HISTORY OF ANTINEOPLASTIC CHEMO 04/13/2019 BEATRICE LUO N Ot Z92.3 PERSONAL HISTORY OF IRRADIATION 05/01/2019 BEATRICE LUO N Ot C56.1 MALIGNANT NEOPLASM OF RIGHT OVARY 05/01/2019 PUJA MOISEGEOVANI N Ot 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 05/01/2019 BEATRICE LUO N Ot Z51.11 ENCOUNTER FOR ANTINEOPLASTIC CHEMOTHERAP 05/01/2019 BEATRICE LUO N Ot Z80.0 FAMILY HISTORY OF MALIGNANT NEOPLASM OF 05/01/2019 BEATRICE LUO N Ot Z80.3 FAMILY HISTORY OF MALIGNANT NEOPLASM OF 05/01/2019 BEATRICE LUO N Ot Z85.3 PERSONAL HISTORY OF MALIGNANT NEOPLASM O 05/01/2019 BEATRICE LUO N Ot Z90.13 ACQUIRED ABSENCE OF BILATERAL BREASTS AN 05/01/2019 BEATRICE LUO N Ot 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( 05/01/2019 BEATRICE LUO N Ot Z90.81 ACQUIRED ABSENCE OF SPLEEN 05/01/2019 BEATRICE LUO N Ot Z92.21 PERSONAL HISTORY OF ANTINEOPLASTIC CHEMO 05/01/2019 BEATRICE LUO N Ot Z92.3 PERSONAL HISTORY OF IRRADIATION 05/05/2019 BEATRICE LUO N Ot C56.1 MALIGNANT NEOPLASM OF RIGHT OVARY 05/05/2019 PUJA MOISEGEOVANI N Ot 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 05/05/2019 BEATRICE LUO N Ot D70.1 AGRANULOCYTOSIS SECONDARY TO CANCER CHEM 05/05/2019 BEATRICE LUO Ot T45.1X5 A ADVERSE EFFECT OF ANTINEOPLASTIC AND IMM 05/05/2019 BEATRICE LUO N Ot Z51.11 ENCOUNTER FOR ANTINEOPLASTIC CHEMOTHERAP 05/05/2019 BEATRICE LUO N Ot Z80.0 FAMILY HISTORY OF MALIGNANT NEOPLASM OF 05/05/2019 BEATRICE LUO N Ot Z80.3 FAMILY HISTORY OF MALIGNANT NEOPLASM OF 05/05/2019 BEATRICE LUO N Ot Z85.3 PERSONAL HISTORY OF MALIGNANT NEOPLASM O 05/05/2019 BEATRICE LUO N Ot Z90.13 ACQUIRED ABSENCE OF BILATERAL BREASTS AN 05/05/2019 BEATRICE LUO N Ot 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( 05/05/2019 BEATRICE LUO N Ot Z90.81 ACQUIRED ABSENCE OF SPLEEN 05/05/2019 BEATRICE LUO N Ot Z92.21 PERSONAL HISTORY OF ANTINEOPLASTIC CHEMO 05/05/2019 BEATRICE LUO N Ot Z92.3 PERSONAL HISTORY OF IRRADIATION 06/06/2019 BEATRICE LUO N Ot C56.1 MALIGNANT NEOPLASM OF RIGHT OVARY 06/06/2019 BEATRICE LUO N Ot 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 06/06/2019 BEATRICE LUO N Ot D70.1 AGRANULOCYTOSIS SECONDARY TO CANCER CHEM 06/06/2019 BEATRICE LUO N Ot T45.1X5 A ADVERSE EFFECT OF ANTINEOPLASTIC AND IMM 06/06/2019 BEATRICE LUO N Ot Z51.11 ENCOUNTER FOR ANTINEOPLASTIC CHEMOTHERAP 06/06/2019 BEATRICE LUO N Ot Z80.0 FAMILY HISTORY OF MALIGNANT NEOPLASM OF 06/06/2019 BEATRICE LUO N Ot Z80.3 FAMILY HISTORY OF MALIGNANT NEOPLASM OF 06/06/2019 BEATRICE LUO N Ot Z85.3 PERSONAL HISTORY OF MALIGNANT NEOPLASM O 06/06/2019 BEATRICE LUO N Ot Z90.13 ACQUIRED ABSENCE OF BILATERAL BREASTS AN 06/06/2019 BEATRICE LUO N Ot 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( 06/06/2019 BEATRICE LUO N Ot Z90.81 ACQUIRED ABSENCE OF SPLEEN 06/06/2019 BEATRICE LUO N Ot Z92.21 PERSONAL HISTORY OF ANTINEOPLASTIC CHEMO 06/06/2019 PUJA BEATRICE N Ot Z92.3 PERSONAL HISTORY OF IRRADIATION 06/15/2019 BEATRICE LUO N Ot C56.1 MALIGNANT NEOPLASM OF RIGHT OVARY 06/15/2019 BEATRICE LUO N Ot 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 06/15/2019 BEATRICE LUO N Ot D70.1 AGRANULOCYTOSIS SECONDARY TO CANCER CHEM 06/15/2019 BEATRICE LUO N Ot T45.1X5 A ADVERSE EFFECT OF ANTINEOPLASTIC AND IMM 06/15/2019 BEATRICE LUO N Ot Z80.0 FAMILY HISTORY OF MALIGNANT NEOPLASM OF 06/15/2019 BEATRICE LUO N Ot Z80.3 FAMILY HISTORY OF MALIGNANT NEOPLASM OF 06/15/2019 BEATRICE LUO N Ot Z85.3 PERSONAL HISTORY OF MALIGNANT NEOPLASM O 06/15/2019 BEATRICE LUO N Ot Z90.13 ACQUIRED ABSENCE OF BILATERAL BREASTS AN 06/15/2019 BEATRICE LUO N Ot 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( 06/15/2019 BEATRICE LUO N Ot Z90.81 ACQUIRED ABSENCE OF SPLEEN 06/15/2019 BEATRICE LUO N Ot Z92.21 PERSONAL HISTORY OF ANTINEOPLASTIC CHEMO 06/15/2019 BEATRICE LUO N Ot Z92.3 PERSONAL HISTORY OF IRRADIATION 06/17/2019 BEATRICE LUO N Ot C56.1 MALIGNANT NEOPLASM OF RIGHT OVARY 06/17/2019 BEATRICE LUO N Ot 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 06/17/2019 BEATRICE LUO N Ot D70.1 AGRANULOCYTOSIS SECONDARY TO CANCER CHEM 06/17/2019 BEATRICE LUO N Ot T45.1X5 A ADVERSE EFFECT OF ANTINEOPLASTIC AND IMM 06/17/2019 BEATRICE LUO N Ot Z80.0 FAMILY HISTORY OF MALIGNANT NEOPLASM OF 06/17/2019 BEATRICE LUO N Ot Z80.3 FAMILY HISTORY OF MALIGNANT NEOPLASM OF 06/17/2019 BEATRICE LUO N Ot Z85.3 PERSONAL HISTORY OF MALIGNANT NEOPLASM O 06/17/2019 BEATRICE LUO N Ot Z90.13 ACQUIRED ABSENCE OF BILATERAL BREASTS AN 06/17/2019 BEATRICE LUO N Ot 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( 06/17/2019 BEATRICE LUO N Ot Z90.81 ACQUIRED ABSENCE OF SPLEEN 06/17/2019 BEATRICE LUO N Ot Z92.21 PERSONAL HISTORY OF ANTINEOPLASTIC CHEMO 06/17/2019 BEATRICE LUO N Ot Z92.3 PERSONAL HISTORY OF IRRADIATION 06/20/2019 BEATRICE LUO Columba Ot C56.1 MALIGNANT NEOPLASM OF RIGHT OVARY 06/20/2019 BEATRICE LUO N Ot 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 06/20/2019 BEATRICE LUO Columba Ot D70.1 AGRANULOCYTOSIS SECONDARY TO CANCER CHEM 06/20/2019 BEATRICE LUO Ot T45.1X5 A ADVERSE EFFECT OF ANTINEOPLASTIC AND IMM 06/20/2019 BEATRCIE LUO Columba Ot Z80.0 FAMILY HISTORY OF MALIGNANT NEOPLASM OF 06/20/2019 BEATRICE LUO Columba Ot Z80.3 FAMILY HISTORY OF MALIGNANT NEOPLASM OF 06/20/2019 BEATRICE LUO N Ot Z85.3 PERSONAL HISTORY OF MALIGNANT NEOPLASM O 06/20/2019 BEATRICE LUO N Ot Z90.13 ACQUIRED ABSENCE OF BILATERAL BREASTS AN 06/20/2019 BEATRICE LUO N Ot 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( 06/20/2019 BEATRICE LUO N Ot Z90.81 ACQUIRED ABSENCE OF SPLEEN 06/20/2019 BEATRICE LUO N Ot Z92.21 PERSONAL HISTORY OF ANTINEOPLASTIC CHEMO 06/20/2019 BEATRICE LUO N Ot Z92.3 PERSONAL HISTORY OF IRRADIATION 07/25/2019 BEATRICE LUO Columba Ot C56.1 MALIGNANT NEOPLASM OF RIGHT OVARY 07/25/2019 BEATRICE LUO Columba Ot 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 07/25/2019 BEATRICE LUO Columba Ot Z45.2 ENCOUNTER FOR ADJUSTMENT AND MANAGEMENT 07/25/2019 BEATRICE LUO Columba Ot Z80.0 FAMILY HISTORY OF MALIGNANT NEOPLASM OF 07/25/2019 BEATRICE LUO N Ot Z80.3 FAMILY HISTORY OF MALIGNANT NEOPLASM OF 07/25/2019 BEATRICE LUO N Ot Z85.3 PERSONAL HISTORY OF MALIGNANT NEOPLASM O 07/25/2019 BEATRICE LUO N Ot Z90.13 ACQUIRED ABSENCE OF BILATERAL BREASTS AN 07/25/2019 BEATRICE LUO N Ot 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( 07/25/2019 BEATRICE LUO N Ot Z90.81 ACQUIRED ABSENCE OF SPLEEN 07/25/2019 BEATRICE LUO N Ot Z92.21 PERSONAL HISTORY OF ANTINEOPLASTIC CHEMO 07/25/2019 MOISE LUOAN N Ot Z92.3 PERSONAL HISTORY OF IRRADIATION 07/25/2019 BEATRICE LUO N Ot C56.1 MALIGNANT NEOPLASM OF RIGHT OVARY 07/25/2019 BEATRICE LUO N Ot 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 07/25/2019 BEATRICE LUO N Ot Z45.2 ENCOUNTER FOR ADJUSTMENT AND MANAGEMENT 07/25/2019 BEATRICE LUO N Ot Z80.0 FAMILY HISTORY OF MALIGNANT NEOPLASM OF 07/25/2019 BEATRICE LUO N Ot Z80.3 FAMILY HISTORY OF MALIGNANT NEOPLASM OF 07/25/2019 BEATRICE LUO N Ot Z85.3 PERSONAL HISTORY OF MALIGNANT NEOPLASM O 07/25/2019 BEATRICE LUO N Ot Z90.13 ACQUIRED ABSENCE OF BILATERAL BREASTS AN 07/25/2019 PUJABEATRICE MORALES N Ot 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( 07/25/2019 PUJA BOBAN N Ot Z90.81 ACQUIRED ABSENCE OF SPLEEN 07/25/2019 BEATRICE LUO N Ot Z92.21 PERSONAL HISTORY OF ANTINEOPLASTIC CHEMO 07/25/2019 BEATRICE LUO N Ot Z92.3 PERSONAL HISTORY OF IRRADIATION 07/25/2019 BEATRICE LUO N Ot C56.1 MALIGNANT NEOPLASM OF RIGHT OVARY 07/25/2019 BEATRICE LUO N Ot 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 07/25/2019 BEATRICE LUO N Ot Z45.2 ENCOUNTER FOR ADJUSTMENT AND MANAGEMENT 07/25/2019 BEATRICE LUO N Ot Z80.0 FAMILY HISTORY OF MALIGNANT NEOPLASM OF 07/25/2019 BEATRICE LUO N Ot Z80.3 FAMILY HISTORY OF MALIGNANT NEOPLASM OF 07/25/2019 BEATRICE LUO N Ot Z85.3 PERSONAL HISTORY OF MALIGNANT NEOPLASM O 07/25/2019 MOISE LUOAN N Ot Z90.13 ACQUIRED ABSENCE OF BILATERAL BREASTS AN 07/25/2019 PUJAMOISE MORALESAN N Ot 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( 07/25/2019 PUJA, BOBAN N Ot Z90.81 ACQUIRED ABSENCE OF SPLEEN 07/25/2019 MOISE LUOAN N Ot Z92.21 PERSONAL HISTORY OF ANTINEOPLASTIC CHEMO 07/25/2019 BEATRICE LUO N Ot Z92.3 PERSONAL HISTORY OF IRRADIATION 07/26/2019 BEATRICE LUO N Ot C56.1 MALIGNANT NEOPLASM OF RIGHT OVARY 07/26/2019 BEATRICE LUO N Ot 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 07/26/2019 BEATRICE LUO N Ot Z45.2 ENCOUNTER FOR ADJUSTMENT AND MANAGEMENT 07/26/2019 BEATRICE LUO N Ot Z80.0 FAMILY HISTORY OF MALIGNANT NEOPLASM OF 07/26/2019 BEATRICE LUO N Ot Z80.3 FAMILY HISTORY OF MALIGNANT NEOPLASM OF 07/26/2019 BEATRICE LUO N Ot Z85.3 PERSONAL HISTORY OF MALIGNANT NEOPLASM O 07/26/2019 MOISE LUOAN N Ot Z90.13 ACQUIRED ABSENCE OF BILATERAL BREASTS AN 07/26/2019 BEATRICE LUO N Ot 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( 07/26/2019 BEATRICE LUO N Ot Z90.81 ACQUIRED ABSENCE OF SPLEEN 07/26/2019 BEATRICE LUO N Ot Z92.21 PERSONAL HISTORY OF ANTINEOPLASTIC CHEMO 07/26/2019 BEATRICE LUO N Ot Z92.3 PERSONAL HISTORY OF IRRADIATION 07/30/2019 BEATRICE LUO N Ot C56.1 MALIGNANT NEOPLASM OF RIGHT OVARY 07/30/2019 BEATRICE LUO N Ot 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 07/30/2019 BEATRICE LUO N Ot Z45.2 ENCOUNTER FOR ADJUSTMENT AND MANAGEMENT 07/30/2019 BEATRICE LUO N Ot Z80.0 FAMILY HISTORY OF MALIGNANT NEOPLASM OF 07/30/2019 BEATRICE LUO N Ot Z80.3 FAMILY HISTORY OF MALIGNANT NEOPLASM OF 07/30/2019 BEATRICE LUO N Ot Z85.3 PERSONAL HISTORY OF MALIGNANT NEOPLASM O 07/30/2019 BEATRICE LUO N Ot Z90.13 ACQUIRED ABSENCE OF BILATERAL BREASTS AN 07/30/2019 BEATRICE LUO N Ot 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( 07/30/2019 BEATRICE LUO N Ot Z90.81 ACQUIRED ABSENCE OF SPLEEN 07/30/2019 MOISE LUOAN N Ot Z92.21 PERSONAL HISTORY OF ANTINEOPLASTIC CHEMO 07/30/2019 BEATRICE LUO N Ot Z92.3 PERSONAL HISTORY OF IRRADIATION 08/22/2019 BEATRICE LUO N Ot C56.1 MALIGNANT NEOPLASM OF RIGHT OVARY 08/22/2019 BEATRICE LUO N Ot 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 08/22/2019 BEATRICE LUO N Ot Z45.2 ENCOUNTER FOR ADJUSTMENT AND MANAGEMENT 08/22/2019 BEATRICE LUO N Ot Z80.0 FAMILY HISTORY OF MALIGNANT NEOPLASM OF 08/22/2019 BEATRICE LUO N Ot Z80.3 FAMILY HISTORY OF MALIGNANT NEOPLASM OF 08/22/2019 BEATRICE LUO N Ot Z85.3 PERSONAL HISTORY OF MALIGNANT NEOPLASM O 08/22/2019 BEATRICE LUO N Ot Z90.13 ACQUIRED ABSENCE OF BILATERAL BREASTS AN 08/22/2019 BEATRICE LUO N Ot 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( 08/22/2019 BEATRICE LUO N Ot Z90.81 ACQUIRED ABSENCE OF SPLEEN 08/22/2019 BEATRICE LUO N Ot Z92.21 PERSONAL HISTORY OF ANTINEOPLASTIC CHEMO 08/22/2019 BEATRICE LUO N Ot Z92.3 PERSONAL HISTORY OF IRRADIATION 08/23/2019 BEATRICE LUO N Ot C56.1 MALIGNANT NEOPLASM OF RIGHT OVARY 08/23/2019 BEATRICE LUO N Ot 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 08/23/2019 BEATRICE LUO N Ot Z45.2 ENCOUNTER FOR ADJUSTMENT AND MANAGEMENT 08/23/2019 BEATRICE LUO N Ot Z80.0 FAMILY HISTORY OF MALIGNANT NEOPLASM OF 08/23/2019 BEATRICE LUO N Ot Z80.3 FAMILY HISTORY OF MALIGNANT NEOPLASM OF 08/23/2019 BEATRICE LUO N Ot Z85.3 PERSONAL HISTORY OF MALIGNANT NEOPLASM O 08/23/2019 BEATRICE LUO N Ot Z90.13 ACQUIRED ABSENCE OF BILATERAL BREASTS AN 08/23/2019 BEATRICE LUO N Ot 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( 08/23/2019 BEATRICE LUO N Ot Z90.81 ACQUIRED ABSENCE OF SPLEEN 08/23/2019 BEATRICE LUO N Ot Z92.21 PERSONAL HISTORY OF ANTINEOPLASTIC CHEMO 08/23/2019 BEATRICE LUO N Ot Z92.3 PERSONAL HISTORY OF IRRADIATION 09/20/2019 Ot C56.1 ZOE GNANT NEOPLASM OF RIGHT OVARY 09/20/2019 Ot C56.2 ZOE GNANT NEOPLASM OF LEFT OVARY 09/20/2019 Ot Z45.2 ENCO UNTER FOR ADJUSTMENT AND MANAGEMENT 09/20/2019 Ot Z80.0 FAMI LY HISTORY OF MALIGNANT NEOPLASM OF 09/20/2019 Ot Z80.3 FAMI LY HISTORY OF MALIGNANT NEOPLASM OF 09/20/2019 Ot Z85.3 PERS ONAL HISTORY OF MALIGNANT NEOPLASM O 09/20/2019 Ot Z90.13 ACQ UIRED ABSENCE OF BILATERAL BREASTS AN 09/20/2019 Ot Z90.79 ACQ UIRED ABSENCE OF OTHER GENITAL ORGAN( 09/20/2019 Ot Z90.81 ACQ UIRED ABSENCE OF SPLEEN 09/20/2019 Ot Z92.21 PER EFRAÍN HISTORY OF ANTINEOPLASTIC CHEMO 09/20/2019 Ot Z92.3 PERS ONAL HISTORY OF IRRADIATION 09/29/2019 BEATRICE LUO Columba Ot C56.1 MALIGNANT NEOPLASM OF RIGHT OVARY 09/29/2019 BEATRICE LUO N Ot 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 09/29/2019 BEATRICE LUO N Ot Z80.0 FAMILY HISTORY OF MALIGNANT NEOPLASM OF 09/29/2019 BEATRICE LUO N Ot Z80.3 FAMILY HISTORY OF MALIGNANT NEOPLASM OF 09/29/2019 BEATRICE LUO N Ot Z85.3 PERSONAL HISTORY OF MALIGNANT NEOPLASM O 09/29/2019 BEATRICE LUO N Ot Z90.13 ACQUIRED ABSENCE OF BILATERAL BREASTS AN 09/29/2019 BEATRICE LUO N Ot 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( 09/29/2019 BEATRICE LUO N Ot Z90.81 ACQUIRED ABSENCE OF SPLEEN 09/29/2019 BEATRICE LUO N Ot Z92.21 PERSONAL HISTORY OF ANTINEOPLASTIC CHEMO 09/29/2019 BEATRICE LUO N Ot Z92.3 PERSONAL HISTORY OF IRRADIATION 10/02/2019 BEATRICE LUO N Ot C56.9 MALIGNANT NEOPLASM OF UNSPECIFIED OVARY 11/29/2019 ANITA VERDUZCO DRIVER UTILITY WORKER Ot C56.1 MALIGNANT NEOPLASM OF RIGHT OVARY 11/29/2019 ANITA VERDUZCO DRIVER UTILITY WORKER Ot Z51.81 ENCOUNTER FOR THERAPEUTIC DRUG LEVEL MON 11/29/2019 ANITA VERDUZCO DRIVER UTILITY WORKER Ot Z79.899 OTHER MUSEUM ATTENDANT (CURRENT) DRUG THERAPY 12/01/2019 BEATRICE LUO N Ot C56.1 MALIGNANT NEOPLASM OF RIGHT OVARY 12/01/2019 PUJA MOISEGEOVANI N Ot 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 12/01/2019 BEATRICE LUO N Ot Z79.899 OTHER MUSEUM ATTENDANT (CURRENT) DRUG THERAPY 12/01/2019 PUJA MOISEGEOVANI N Ot Z80.0 FAMILY HISTORY OF MALIGNANT NEOPLASM OF 12/01/2019 PUJA BEATRICE N Ot Z80.3 FAMILY HISTORY OF MALIGNANT NEOPLASM OF 12/01/2019 PUJA BEATRICE N Ot Z85.3 PERSONAL HISTORY OF MALIGNANT NEOPLASM O 12/01/2019 PUJA BEATRICE N Ot Z90.13 ACQUIRED ABSENCE OF BILATERAL BREASTS AN 12/01/2019 PUJA BEATRICE N Ot 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( 12/01/2019 PUJA BEATRICE N Ot Z90.81 ACQUIRED ABSENCE OF SPLEEN 12/01/2019 PUJA BEATRICE N Ot Z92.21 PERSONAL HISTORY OF ANTINEOPLASTIC CHEMO 12/01/2019 PUJA BEATRICE N Ot Z92.3 PERSONAL HISTORY OF IRRADIATION 12/18/2019 PUJA MOISEGEOVANI N Ot C56.1 MALIGNANT NEOPLASM OF RIGHT OVARY 12/18/2019 PUJA BEATRICE N Ot Z79.899 OTHER MUSEUM ATTENDANT (CURRENT) DRUG THERAPY 12/18/2019 PUJA BEATRICE N Ot Z85.3 PERSONAL HISTORY OF MALIGNANT NEOPLASM O 12/18/2019 PUJA MOISEGEOVANI N Ot Z90.13 ACQUIRED ABSENCE OF BILATERAL BREASTS AN 12/18/2019 PUJA BEATRICE N Ot Z90.49 ACQUIRED ABSENCE OF OTHER SPECIFIED PART 12/18/2019 PUJA BEATRICE N Ot Z90.81 ACQUIRED ABSENCE OF SPLEEN 12/20/2019 PUJA BEATRICE N Ot C56.9 MALIGNANT NEOPLASM OF UNSPECIFIED OVARY 12/25/2019 PUJA BEATRICE N Ot C56.1 MALIGNANT NEOPLASM OF RIGHT OVARY 12/25/2019 PUJA BEATRICE N Ot 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 12/25/2019 PUJA BEATRICE N Ot Z79.899 OTHER INTERMEDIATE (CURRENT) DRUG THERAPY 12/25/2019 PUJA BEATRICE N Ot Z80.0 FAMILY HISTORY OF MALIGNANT NEOPLASM OF 12/25/2019 PUJA BEATRICE N Ot Z80.3 FAMILY HISTORY OF MALIGNANT NEOPLASM OF 12/25/2019 PUJA BEATRICE N Ot Z85.3 PERSONAL HISTORY OF MALIGNANT NEOPLASM O 12/25/2019 PUJA BEATRICE Waterman Ot Z90.13 ACQUIRED ABSENCE OF BILATERAL BREASTS AN 12/25/2019 PUJA BEATRICE Waterman Ot Z90.49 ACQUIRED ABSENCE OF OTHER SPECIFIED PART 12/25/2019 PUJABEATRICE Ot 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( 12/25/2019 PUJABEATRICE Ot Z90.81 ACQUIRED ABSENCE OF SPLEEN 12/25/2019 PUJABEATRICE Ot Z92.21 PERSONAL HISTORY OF ANTINEOPLASTIC CHEMO 12/25/2019 PUJABEATRICE Ot Z92.3 PERSONAL HISTORY OF IRRADIATION 12/25/2019 PUJA BEATRICE Waterman Ot C56.1 MALIGNANT NEOPLASM OF RIGHT OVARY 12/25/2019 PUJA BEATRICE Waterman Ot R18.8 OTHER ASCITES 12/25/2019 PUJA BEATRICE Waterman Ot R97.1 ELEVATED CANCER ANTIGEN 125 [CA 125] 12/28/2019 PUJABEATRICE Ot C56.1 MALIGNANT NEOPLASM OF RIGHT OVARY 12/28/2019 PUJABEATRICE Ot R18.8 OTHER ASCITES 12/28/2019 PUJA BEATRICE Waterman Ot R97.1 ELEVATED CANCER ANTIGEN 125 [CA 125] 12/28/2019 PUJA BEATRICE Waterman Ot C56.1 MALIGNANT NEOPLASM OF RIGHT OVARY 12/28/2019 PUJA BEATRICE Waterman Ot R18.8 OTHER ASCITES 12/28/2019 PUJA BEATRICE Waterman Ot R97.1 ELEVATED CANCER ANTIGEN 125 [CA 125] 01/01/2020 PUJABEATRICE Ot C56.1 MALIGNANT NEOPLASM OF RIGHT OVARY 01/01/2020 PUJABEATRICE Ot 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 01/01/2020 PUJA BEATRICE Waterman Ot R97.1 ELEVATED CANCER ANTIGEN 125 [CA 125] 01/01/2020 PUJA BEATRICE Waterman Ot Z51.11 ENCOUNTER FOR ANTINEOPLASTIC CHEMOTHERAP 01/01/2020 PUJABEATRICE Ot Z78.1 PHYSICAL RESTRAINT STATUS 01/01/2020 PUJABEATRICE Ot Z79.899 OTHER MUSEUM ATTENDANT (CURRENT) DRUG THERAPY 01/01/2020 PUJABEATRICE Ot Z85.3 PERSONAL HISTORY OF MALIGNANT NEOPLASM O 01/01/2020 PUJABEATRICE Ot Z90.12 ACQUIRED ABSENCE OF LEFT BREAST AND NIPP 01/01/2020 PUJABEATRICE Ot Z90.49 ACQUIRED ABSENCE OF OTHER SPECIFIED PART 01/01/2020 PUJABEATRICE Ot Z90.81 ACQUIRED ABSENCE OF SPLEEN 01/01/2020 PUJABEATRICE Ot Z93.2 ILEOSTOMY STATUS 01/01/2020 PUJABEATRICE Ot Z98.890 OTHER SPECIFIED POSTPROCEDURAL STATES 01/17/2020 BEATRICE LUO Ot C56.1 MALIGNANT NEOPLASM OF RIGHT OVARY 01/17/2020 BEATRICE LUO Ot 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 01/17/2020 PUJABEATRICE Ot 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 01/17/2020 BEATRICE LUO Ot R97.1 ELEVATED CANCER ANTIGEN 125 [CA 125] 01/17/2020 BEATRICE LUO Ot Z51.11 ENCOUNTER FOR ANTINEOPLASTIC CHEMOTHERAP 01/17/2020 BEATRICE LOU Ot Z79.899 OTHER MUSEUM ATTENDANT (CURRENT) DRUG THERAPY 01/17/2020 BEATRICE LUO Ot Z85.3 PERSONAL HISTORY OF MALIGNANT NEOPLASM O 01/17/2020 BEATRICE LUO Ot Z90.12 ACQUIRED ABSENCE OF LEFT BREAST AND NIPP 01/17/2020 BEATRICE LUO Ot Z90.49 ACQUIRED ABSENCE OF OTHER SPECIFIED PART 01/17/2020 BEATRICE LUO Ot Z90.81 ACQUIRED ABSENCE OF SPLEEN 01/17/2020 BEATRICE LUO Ot Z90.89 ACQUIRED ABSENCE OF OTHER ORGANS 01/17/2020 BEATRICE LUO Ot Z92.21 PERSONAL HISTORY OF ANTINEOPLASTIC CHEMO 01/17/2020 BEATRICE LUO Ot Z92.3 PERSONAL HISTORY OF IRRADIATION 01/19/2020 BEATRICE LUO Ot C56.1 MALIGNANT NEOPLASM OF RIGHT OVARY 01/19/2020 BEATRICE LUO Ot 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 01/19/2020 BEATRICE LUO Ot 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 01/19/2020 BEATRICE LUO Ot R97.1 ELEVATED CANCER ANTIGEN 125 [CA 125] 01/19/2020 BEATRICE LUO Ot Z51.11 ENCOUNTER FOR ANTINEOPLASTIC CHEMOTHERAP 01/19/2020 BEATRICE LUO Ot Z85.3 PERSONAL HISTORY OF MALIGNANT NEOPLASM O 01/19/2020 BEATRICE LUO Columba Ot Z90.12 ACQUIRED ABSENCE OF LEFT BREAST AND NIPP 01/19/2020 BEATRICE LUO Columba Ot Z90.49 ACQUIRED ABSENCE OF OTHER SPECIFIED PART 01/19/2020 BEATRICE LUO N Ot Z90.81 ACQUIRED ABSENCE OF SPLEEN 01/19/2020 BEATRICE LUO Columba Ot Z90.89 ACQUIRED ABSENCE OF OTHER ORGANS 01/19/2020 BEATRICE LUO Columba Ot Z92.21 PERSONAL HISTORY OF ANTINEOPLASTIC CHEMO 01/19/2020 PUJA BEATRICE N Ot Z92.3 PERSONAL HISTORY OF IRRADIATION 01/19/2020 BEATRICE LUO Columba Ot C56.1 MALIGNANT NEOPLASM OF RIGHT OVARY 01/19/2020 PUJA BEATRICE Waterman Ot 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 01/19/2020 PUJA BEATRICE Waterman Ot 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 01/19/2020 PUJA MOISEGEOVANI Columba Ot R97.1 ELEVATED CANCER ANTIGEN 125 [CA 125] 01/19/2020 PUJA BEATRICE Waterman Ot Z51.11 ENCOUNTER FOR ANTINEOPLASTIC CHEMOTHERAP 01/19/2020 PUJA BEATRICE Waterman Ot Z79.899 OTHER INTERMEDIATE (CURRENT) DRUG THERAPY 01/19/2020 MOISE LUOGEOVANI Waterman Ot Z85.3 PERSONAL HISTORY OF MALIGNANT NEOPLASM O 01/19/2020 BEATRICE LUO Columba Ot Z90.12 ACQUIRED ABSENCE OF LEFT BREAST AND NIPP 01/19/2020 BEATRICE LUO Columba Ot Z90.49 ACQUIRED ABSENCE OF OTHER SPECIFIED PART 01/19/2020 PUJA MOISEGEOVANI Columba Ot Z90.81 ACQUIRED ABSENCE OF SPLEEN 01/19/2020 PUJA MOISEGEOVANI Columba Ot Z90.89 ACQUIRED ABSENCE OF OTHER ORGANS 01/19/2020 BEATRICE LUO Columba Ot Z92.21 PERSONAL HISTORY OF ANTINEOPLASTIC CHEMO 01/19/2020 PUJA MOISEGEOVANI Columba Ot Z92.3 PERSONAL HISTORY OF IRRADIATION 01/19/2020 PUJA BEATRICE Waterman Ot C56.1 MALIGNANT NEOPLASM OF RIGHT OVARY 01/19/2020 PUJA BEATRICE Waterman Ot 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 01/19/2020 PUJA MOISEGEVOANI Columba Ot Z79.899 OTHER INTERMEDIATE (CURRENT) DRUG THERAPY 01/19/2020 PUJA BEATRICE Waterman Ot Z80.0 FAMILY HISTORY OF MALIGNANT NEOPLASM OF 01/19/2020 PUJA BEATRICE Waterman Ot Z80.3 FAMILY HISTORY OF MALIGNANT NEOPLASM OF 01/19/2020 PUJA BEATRICE Waterman Ot Z85.3 PERSONAL HISTORY OF MALIGNANT NEOPLASM O 01/19/2020 PUJA BEATRICE Waterman Ot Z90.13 ACQUIRED ABSENCE OF BILATERAL BREASTS AN 01/19/2020 PUJA BEATRICE Waterman Ot Z90.49 ACQUIRED ABSENCE OF OTHER SPECIFIED PART 01/19/2020 PUJA BEATRICE Waterman Ot 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( 01/19/2020 PUJA BEATRICE N Ot Z90.81 ACQUIRED ABSENCE OF SPLEEN 01/19/2020 PUJA BEATRICE Waterman Ot Z92.21 PERSONAL HISTORY OF ANTINEOPLASTIC CHEMO 01/19/2020 PUJABEATRICE Ot Z92.3 PERSONAL HISTORY OF IRRADIATION 01/19/2020 PUJABEATRICE Ot C56.1 MALIGNANT NEOPLASM OF RIGHT OVARY 01/19/2020 PUJABEATRICE Ot 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 01/19/2020 PUJABEATRICE Ot R97.1 ELEVATED CANCER ANTIGEN 125 [CA 125] 01/19/2020 PUJABEATRICE Ot Z51.11 ENCOUNTER FOR ANTINEOPLASTIC CHEMOTHERAP 01/19/2020 PUJABEATRICE Ot Z78.1 PHYSICAL RESTRAINT STATUS 01/19/2020 PUJABEATRICE Ot Z79.899 OTHER MUSEUM ATTENDANT (CURRENT) DRUG THERAPY 01/19/2020 PUJABEATRICE Ot Z85.3 PERSONAL HISTORY OF MALIGNANT NEOPLASM O 01/19/2020 PUJA BEATRICE Waterman Ot Z90.12 ACQUIRED ABSENCE OF LEFT BREAST AND NIPP 01/19/2020 PUJABEATRICE Ot Z90.49 ACQUIRED ABSENCE OF OTHER SPECIFIED PART 01/19/2020 PUJABEATRICE Ot Z90.81 ACQUIRED ABSENCE OF SPLEEN 01/19/2020 PUJABEATRICE Ot Z93.2 ILEOSTOMY STATUS 01/19/2020 PUJABEATRICE Ot Z98.890 OTHER SPECIFIED POSTPROCEDURAL STATES 01/19/2020 BEATRICE LUO Ot C56.1 MALIGNANT NEOPLASM OF RIGHT OVARY 01/19/2020 PUJABEATRICE Ot 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 01/19/2020 PUJA, BOBAN N Ot Z79.899 OTHER INTERMEDIATE (CURRENT) DRUG THERAPY 01/19/2020 BEATRICE LUO N Ot Z80.0 FAMILY HISTORY OF MALIGNANT NEOPLASM OF 01/19/2020 BEATRICE LUO N Ot Z80.3 FAMILY HISTORY OF MALIGNANT NEOPLASM OF 01/19/2020 BEATRICE LUO N Ot Z85.3 PERSONAL HISTORY OF MALIGNANT NEOPLASM O 01/19/2020 BEATRICE LUO N Ot Z90.13 ACQUIRED ABSENCE OF BILATERAL BREASTS AN 01/19/2020 BEATRICE LUO N Ot 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( 01/19/2020 BEATRICE LUO N Ot Z90.81 ACQUIRED ABSENCE OF SPLEEN 01/19/2020 BEATRICE LUO N Ot Z92.21 PERSONAL HISTORY OF ANTINEOPLASTIC CHEMO 01/19/2020 BEATRICE LUO N Ot Z92.3 PERSONAL HISTORY OF IRRADIATION 01/19/2020 BEATRICE LUO N Ot C56.1 MALIGNANT NEOPLASM OF RIGHT OVARY 01/19/2020 BEATRICE LUO N Ot Z79.899 OTHER INTERMEDIATE (CURRENT) DRUG THERAPY 01/19/2020 BEATRICE LUO N Ot Z85.3 PERSONAL HISTORY OF MALIGNANT NEOPLASM O 01/19/2020 BEATRICE LUO N Ot Z90.13 ACQUIRED ABSENCE OF BILATERAL BREASTS AN 01/19/2020 BEATRICE LUO N Ot Z90.49 ACQUIRED ABSENCE OF OTHER SPECIFIED PART 01/19/2020 BEATRICE LUO N Ot Z90.81 ACQUIRED ABSENCE OF SPLEEN 01/19/2020 BEATRICE LUO N Ot C56.1 MALIGNANT NEOPLASM OF RIGHT OVARY 01/19/2020 BEATRICE LUO N Ot 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 01/19/2020 BEATRICE LUO N Ot Z51.81 ENCOUNTER FOR THERAPEUTIC DRUG LEVEL MON 01/19/2020 BEATRICE LUO N Ot Z85.3 PERSONAL HISTORY OF MALIGNANT NEOPLASM O 01/19/2020 BEATRICE LUO N Ot Z93.2 ILEOSTOMY STATUS 01/19/2020 ANITA VERDUZCO DRIVER UTILITY WORKER Ot C56.1 MALIGNANT NEOPLASM OF RIGHT OVARY 01/19/2020 ANITA VERDUZCO DRIVER UTILITY WORKER Ot Z51.81 ENCOUNTER FOR THERAPEUTIC DRUG LEVEL MON 01/19/2020 ANITA VERDUZCO DRIVER UTILITY WORKER Ot Z79.899 OTHER INTERMEDIATE (CURRENT) DRUG THERAPY 01/19/2020 BEATRICE LUO N Ot C56.9 MALIGNANT NEOPLASM OF UNSPECIFIED OVARY 01/19/2020 BEATRICE LUO N Ot C56.1 MALIGNANT NEOPLASM OF RIGHT OVARY 01/19/2020 BEATRICE LUO N Ot 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 01/19/2020 BEATRICE LUO N Ot Z80.0 FAMILY HISTORY OF MALIGNANT NEOPLASM OF 01/19/2020 BEATRICE LUO N Ot Z80.3 FAMILY HISTORY OF MALIGNANT NEOPLASM OF 01/19/2020 BEATRICE LUO N Ot Z85.3 PERSONAL HISTORY OF MALIGNANT NEOPLASM O 01/19/2020 BEATRICE LUO N Ot Z90.13 ACQUIRED ABSENCE OF BILATERAL BREASTS AN 01/19/2020 BEATRICE LUO N Ot 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( 01/19/2020 BEATRICE LUO N Ot Z90.81 ACQUIRED ABSENCE OF SPLEEN 01/19/2020 BEATRICE LUO N Ot Z92.21 PERSONAL HISTORY OF ANTINEOPLASTIC CHEMO 01/19/2020 BEATRICE LUO N Ot Z92.3 PERSONAL HISTORY OF IRRADIATION 01/19/2020 Ot C56.1 ZOE GNANT NEOPLASM OF RIGHT OVARY 01/19/2020 Ot C56.2 ZOE GNANT NEOPLASM OF LEFT OVARY 01/19/2020 Ot Z45.2 ENCO UNTER FOR ADJUSTMENT AND MANAGEMENT 01/19/2020 Ot Z80.0 FAMI LY HISTORY OF MALIGNANT NEOPLASM OF 01/19/2020 Ot Z80.3 FAMI LY HISTORY OF MALIGNANT NEOPLASM OF 01/19/2020 Ot Z85.3 PERS ONAL HISTORY OF MALIGNANT NEOPLASM O 01/19/2020 Ot Z90.13 ACQ UIRED ABSENCE OF BILATERAL BREASTS AN 01/19/2020 Ot Z90.79 ACQ UIRED ABSENCE OF OTHER GENITAL ORGAN( 01/19/2020 Ot Z90.81 ACQ UIRED ABSENCE OF SPLEEN 01/19/2020 Ot Z92.21 PER EFRAÍN HISTORY OF ANTINEOPLASTIC CHEMO 01/19/2020 Ot Z92.3 PERS ONAL HISTORY OF IRRADIATION 01/19/2020 BEATRICE LUO N Ot C56.1 MALIGNANT NEOPLASM OF RIGHT OVARY 01/19/2020 BEATRICE LUO N Ot 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 01/19/2020 BEATRICE LUO N Ot Z45.2 ENCOUNTER FOR ADJUSTMENT AND MANAGEMENT 01/19/2020 BEATRICE LUO N Ot Z80.0 FAMILY HISTORY OF MALIGNANT NEOPLASM OF 01/19/2020 BEATRICE LUO N Ot Z80.3 FAMILY HISTORY OF MALIGNANT NEOPLASM OF 01/19/2020 BEATRICE LUO N Ot Z85.3 PERSONAL HISTORY OF MALIGNANT NEOPLASM O 01/19/2020 BEATRICE LUO N Ot Z90.13 ACQUIRED ABSENCE OF BILATERAL BREASTS AN 01/19/2020 BEATRICE LUO N Ot 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( 01/19/2020 BEATRICE LUO N Ot Z90.81 ACQUIRED ABSENCE OF SPLEEN 01/19/2020 BEATRICE LUO N Ot Z92.21 PERSONAL HISTORY OF ANTINEOPLASTIC CHEMO 01/19/2020 BEATRICE LUO N Ot Z92.3 PERSONAL HISTORY OF IRRADIATION 01/19/2020 BEATRICE LUO N Ot Z45.2 ENCOUNTER FOR ADJUSTMENT AND MANAGEMENT 01/19/2020 BEATRICE LUO N Ot C56.1 MALIGNANT NEOPLASM OF RIGHT OVARY 01/19/2020 PUJA MOISEGEOVANI N Ot 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 01/19/2020 BEATRICE LUO N Ot D70.1 AGRANULOCYTOSIS SECONDARY TO CANCER CHEM 01/19/2020 BEATRICE LUO N Ot T45.1X5 A ADVERSE EFFECT OF ANTINEOPLASTIC AND IMM 01/19/2020 BEATRICE LUO N Ot Z80.0 FAMILY HISTORY OF MALIGNANT NEOPLASM OF 01/19/2020 BEATRICE LUO N Ot Z80.3 FAMILY HISTORY OF MALIGNANT NEOPLASM OF 01/19/2020 BEATRICE LUO N Ot Z85.3 PERSONAL HISTORY OF MALIGNANT NEOPLASM O 01/19/2020 BEATRICE LUO N Ot Z90.13 ACQUIRED ABSENCE OF BILATERAL BREASTS AN 01/19/2020 BEATRICE LUO N Ot 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( 01/19/2020 BEATRICE LUO N Ot Z90.81 ACQUIRED ABSENCE OF SPLEEN 01/19/2020 BEATRICE LUO N Ot Z92.21 PERSONAL HISTORY OF ANTINEOPLASTIC CHEMO 01/19/2020 PUJA BEATRICE N Ot Z92.3 PERSONAL HISTORY OF IRRADIATION 01/19/2020 PUJA MOISEGEOVANI N Ot C56.1 MALIGNANT NEOPLASM OF RIGHT OVARY 01/19/2020 PUJA BEATRICE N Ot 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 01/19/2020 PUJA BEATRICE Waterman Ot Z45.2 ENCOUNTER FOR ADJUSTMENT AND MANAGEMENT 01/19/2020 PUJA BEATRICE Waterman Ot Z80.0 FAMILY HISTORY OF MALIGNANT NEOPLASM OF 01/19/2020 PUJA, BEATRICE Waterman Ot Z80.3 FAMILY HISTORY OF MALIGNANT NEOPLASM OF 01/19/2020 PUJA BEATRICE Waterman Ot Z85.3 PERSONAL HISTORY OF MALIGNANT NEOPLASM O 01/19/2020 PUJA BEATRICE Waterman Ot Z90.13 ACQUIRED ABSENCE OF BILATERAL BREASTS AN 01/19/2020 PUJABEATRICE Ot 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( 01/19/2020 PUJABEATRICE Ot Z90.81 ACQUIRED ABSENCE OF SPLEEN 01/19/2020 BEATRICE LUO Ot Z92.21 PERSONAL HISTORY OF ANTINEOPLASTIC CHEMO 01/19/2020 BEATRICE LUO Ot Z92.3 PERSONAL HISTORY OF IRRADIATION 01/26/2020 BEATRICE LUO Ot C56.1 MALIGNANT NEOPLASM OF RIGHT OVARY 01/26/2020 BEATRICE LUO Ot 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 01/26/2020 PUJABEATRICE Ot 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 01/26/2020 PUJABEATRICE Ot R97.1 ELEVATED CANCER ANTIGEN 125 [CA 125] 01/26/2020 PUJABEATRICE Ot Z51.11 ENCOUNTER FOR ANTINEOPLASTIC CHEMOTHERAP 01/26/2020 PUJABEATRICE Ot Z79.899 OTHER INTERMEDIATE (CURRENT) DRUG THERAPY 01/26/2020 PUJABEATRICE Ot Z85.3 PERSONAL HISTORY OF MALIGNANT NEOPLASM O 01/26/2020 PUJABEATRICE Ot Z90.12 ACQUIRED ABSENCE OF LEFT BREAST AND NIPP 01/26/2020 BEATRICE LUO Ot Z90.49 ACQUIRED ABSENCE OF OTHER SPECIFIED PART 01/26/2020 BEATRICE LUO Ot Z90.81 ACQUIRED ABSENCE OF SPLEEN 01/26/2020 BEATRICE LUO Ot Z90.89 ACQUIRED ABSENCE OF OTHER ORGANS 01/26/2020 BEATRICE LUO Ot Z92.21 PERSONAL HISTORY OF ANTINEOPLASTIC CHEMO 01/26/2020 BEATRICE LUO Ot Z92.3 PERSONAL HISTORY OF IRRADIATION 02/05/2020 BEATRICE LUO Ot C56.9 MALIGNANT NEOPLASM OF UNSPECIFIED OVARY 02/05/2020 BEATRICE LUO N Ot 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 02/05/2020 PUJA BEATRICE N Ot Z51.11 ENCOUNTER FOR ANTINEOPLASTIC CHEMOTHERAP 02/09/2020 PUJA BEATRICE N Ot C56.9 MALIGNANT NEOPLASM OF UNSPECIFIED OVARY 02/09/2020 PUJA, BEATRICE N Ot 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 02/09/2020 PUJA BEATRICE N Ot Z51.11 ENCOUNTER FOR ANTINEOPLASTIC CHEMOTHERAP 02/14/2020 PUJA BEATRICE N Ot C56.9 MALIGNANT NEOPLASM OF UNSPECIFIED OVARY 02/14/2020 PUJA BEATRICE N Ot 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 02/14/2020 PUJA, BEATRICE N Ot Z51.11 ENCOUNTER FOR ANTINEOPLASTIC CHEMOTHERAP 02/14/2020 PUJA BEATRICE N Ot C56.9 MALIGNANT NEOPLASM OF UNSPECIFIED OVARY 02/14/2020 PUJA BEATRICE N Ot 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 02/14/2020 PUJABEATRICE N Ot Z51.11 ENCOUNTER FOR ANTINEOPLASTIC CHEMOTHERAP 02/20/2020 PUJA MOISEGEOVANI N Ot C56.1 MALIGNANT NEOPLASM OF RIGHT OVARY 02/20/2020 PUJA BEATRICE N Ot 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 02/20/2020 PUJA BEATRICE N Ot 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 02/20/2020 PUJA BEATRICE N Ot R97.1 ELEVATED CANCER ANTIGEN 125 [CA 125] 02/20/2020 PUJABEATRICE N Ot Z51.11 ENCOUNTER FOR ANTINEOPLASTIC CHEMOTHERAP 02/20/2020 PUJABEATRICE Ot Z79.899 OTHER INTERMEDIATE (CURRENT) DRUG THERAPY 02/20/2020 BEATRICE LUO N Ot Z85.3 PERSONAL HISTORY OF MALIGNANT NEOPLASM O 02/20/2020 BEATRICE LUO Ot Z90.12 ACQUIRED ABSENCE OF LEFT BREAST AND NIPP 02/20/2020 BEATRICE LUO Ot Z90.49 ACQUIRED ABSENCE OF OTHER SPECIFIED PART 02/20/2020 BEATRICE LUO Ot Z90.81 ACQUIRED ABSENCE OF SPLEEN 02/20/2020 BEATRICE LUO Ot Z90.89 ACQUIRED ABSENCE OF OTHER ORGANS 02/20/2020 PUJA, BOBAN N Ot Z92.21 PERSONAL HISTORY OF ANTINEOPLASTIC CHEMO 02/20/2020 PUJA BEATRICE N Ot Z92.3 PERSONAL HISTORY OF IRRADIATION 02/20/2020 PUJA BEATRICE Waterman Ot C56.9 MALIGNANT NEOPLASM OF UNSPECIFIED OVARY 02/20/2020 PUJA BEATRICE N Ot 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 02/20/2020 PUJA MOISEGEOVANI N Ot Z51.11 ENCOUNTER FOR ANTINEOPLASTIC CHEMOTHERAP 02/26/2020 PUJA BEATRICE Waterman Ot C56.1 MALIGNANT NEOPLASM OF RIGHT OVARY 02/26/2020 PUJA BEATRICE N Ot 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 02/26/2020 PUJA BEATRICE N Ot Z51.11 ENCOUNTER FOR ANTINEOPLASTIC CHEMOTHERAP 02/26/2020 PUJA, BEATRICE N Ot Z79.899 OTHER MUSEUM ATTENDANT (CURRENT) DRUG THERAPY 02/26/2020 PUJABEATRICE N Ot Z85.3 PERSONAL HISTORY OF MALIGNANT NEOPLASM O 02/26/2020 PUJABEATRICE Ot Z90.13 ACQUIRED ABSENCE OF BILATERAL BREASTS AN 02/26/2020 PUJABEATRICE Ot Z90.49 ACQUIRED ABSENCE OF OTHER SPECIFIED PART 02/26/2020 PUJABEATRICE N Ot Z90.710 ACQUIRED ABSENCE OF BOTH CERVIX AND UTER 02/26/2020 PUJABEATRICE N Ot Z90.722 ACQUIRED ABSENCE OF OVARIES, BILATERAL 02/26/2020 PUJABEATRICE N Ot Z90.81 ACQUIRED ABSENCE OF SPLEEN 02/26/2020 PUJABEATRICE N Ot Z90.89 ACQUIRED ABSENCE OF OTHER ORGANS 02/26/2020 PUJABEATRICE Ot Z93.2 ILEOSTOMY STATUS 02/27/2020 PUJABEATRICE Ot Z53.9 PROCEDURE AND TREATMENT NOT CARRIED OUT, 03/01/2020 PUJA BEATRICE Waterman Ot C56.1 MALIGNANT NEOPLASM OF RIGHT OVARY 03/01/2020 PUJABEATRICE Ot 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 03/01/2020 PUJABEATRICE N Ot Z79.899 OTHER MUSEUM ATTENDANT (CURRENT) DRUG THERAPY 03/01/2020 PUJABEATRICE N Ot Z85.3 PERSONAL HISTORY OF MALIGNANT NEOPLASM O 03/01/2020 PUJABEATRICE N Ot Z90.13 ACQUIRED ABSENCE OF BILATERAL BREASTS AN 03/01/2020 BEATRICE LUO Ot Z90.49 ACQUIRED ABSENCE OF OTHER SPECIFIED PART 03/01/2020 BEATRICE LUO Ot Z90.710 ACQUIRED ABSENCE OF BOTH CERVIX AND UTER 03/01/2020 BEATRICE LUO Ot Z90.722 ACQUIRED ABSENCE OF OVARIES, BILATERAL 03/01/2020 BEATRICE LUO Ot Z90.81 ACQUIRED ABSENCE OF SPLEEN 03/01/2020 BEATRICE LUO Ot Z90.89 ACQUIRED ABSENCE OF OTHER ORGANS 03/01/2020 BEATRICE LUO Ot Z93.2 ILEOSTOMY STATUS Procedures There is no data. Results Test Result Range Complete blood count (CBC) with automate d white blood cell (WBC) differential - 05/03/19 09:20 Blood leukocytes automated count (number/volume) 9.8 10*3/uL 4.3-11.0 Blood erythrocytes automated count (number/volume) 3.56 10*6/uL 4.35-5.85 Venous blood hemoglobin measurement (mass/volume) 11.9 g/dL 11.5-16.0 Blood hematocrit (volume fraction) 35 % 35-52 Automated erythrocyte mean corpuscular volume 99 [ foz_us] 80-99 Automated erythrocyte mean corpuscular h emoglobin (mass per erythrocyte) 33 pg 25-34 Automated erythrocyte mean corpuscular h emoglobin concentration measurement (mass/volume) 34 g/dL 32-36 Automated erythrocyte distribution width ratio 17. 6 % 10.0- 14.5 Automated blood platelet count (count/volume) 440 10*3/uL 130-400 Automated blood platelet mean volume measurement 9.4 [foz_us] 7.4-10.4 Automated blood neutrophils/100 leukocytes 92 % 42-75 Automated blood lymphocytes/100 leukocytes 8 % 12-44 Blood monocytes/100 leukocytes 0 % 0-12 Automated blood eosinophils/100 leukocytes 0 % 0-10 Automated blood basophils/100 leukocytes 0 % 0-10 Blood neutrophils automated count (number/volume) 9.0 10*3 1.8-7.8 Blood lymphocytes automated count (number/volume) 0.7 10*3 1.0-4.0 Blood monocytes automated count (number/volume) 0. 0 10*3 0.0-1.0 Automated eosinophil count 0.0 10*3/uL 0 .0-0.3 Automated blood basophil count (count/volume) 0.0 10*3/uL 0.0-0.1 Comprehensive metabolic panel - 05/03/19 09:20 Serum or plasma sodium measurement (moles/volume) 137 mmol/L 135-145 Serum or plasma potassium measurement (moles/volume) 3.9 mmol/L 3.6-5.0 Serum or plasma chloride measurement (moles/volume) 103 mmol/L 98-107 Carbon dioxide 21 mmol/L 21-32 Serum or plasma anion gap determination (moles/volume) 13 mmol/L 5-14 Serum or plasma urea nitrogen measurement (mass/volume ) 16 mg/dL 7-18 Serum or plasma creatinine measurement (mass/volume) 0.79 mg/dL 0.60-1.30 Serum or plasma urea nitrogen/creatinine mass ratio 20 NRG Serum or plasma creatinine measurement w ith calculation of estimated glomerular filtration rate > NRG Serum or plasma glucose measurement (mass/volume) 213 mg/dL 70-105 Serum or plasma calcium measurement (mass/volume) 10.2 mg/dL 8.5-10.1 Serum or plasma total bilirubin measurement (mass/volu me) 0.4 mg/dL 0.1-1.0 Serum or plasma alkaline phosphatase татьяна surement (enzymatic activity/volume) 211 U/L 40-136 Serum or plasma aspartate aminotransfera se measurement (enzymatic activity/volume) 26 U/L 5-34 Serum or plasma alanine aminotransferase measurement (enzymatic activity/volume) 85 U/L 0-55 Serum or plasma protein measurement (mass/volume) 7.7 g/dL 6.4-8.2 Serum or plasma albumin measurement (mass/volume) 4.4 g/dL 3.2-4.5 CALCIUM CORRECTED 9.9 mg/dL 8.5-10.1 Complete blood count (CBC) with automate d white blood cell (WBC) differential - 03/06/20 14:25 Blood leukocytes automated count (number/volume) 6.3 10*3/uL 4.3-11.0 Blood erythrocytes automated count (number/volume) 3.61 10*6/uL 4.35-5.85 Venous blood hemoglobin measurement (mass/volume) 11.6 g/dL 11.5-16.0 Blood hematocrit (volume fraction) 35 % 35-52 Automated erythrocyte mean corpuscular volume 96 [ foz_us] 80-99 Automated erythrocyte mean corpuscular h emoglobin (mass per erythrocyte) 32 pg 25-34 Automated erythrocyte mean corpuscular h emoglobin concentration measurement (mass/volume) 33 g/dL 32-36 Automated erythrocyte distribution width ratio 15. 9 % 10.0- 14.5 Automated blood platelet count (count/volume) 383 10*3/uL 130-400 Automated blood platelet mean volume measurement 9.7 [foz_us] 7.4-10.4 Automated blood neutrophils/100 leukocytes 76 % 42-75 Automated blood lymphocytes/100 leukocytes 15 % 12-44 Blood monocytes/100 leukocytes 9 % 0-12 Automated blood eosinophils/100 leukocytes 0 % 0-10 Automated blood basophils/100 leukocytes 0 % 0-10 Blood neutrophils automated count (number/volume) 4.7 10*3 1.8-7.8 Blood lymphocytes automated count (number/volume) 0.9 10*3 1.0-4.0 Blood monocytes automated count (number/volume) 0. 6 10*3 0.0-1.0 Automated eosinophil count 0.0 10*3/uL 0 .0-0.3 Automated blood basophil count (count/volume) 0.0 10*3/uL 0.0-0.1 Comprehensive metabolic panel - 03/06/20 14:25 Serum or plasma sodium measurement (moles/volume) 139 mmol/L 135-145 Serum or plasma potassium measurement (moles/volume) 3.6 mmol/L 3.6-5.0 Serum or plasma chloride measurement (moles/volume) 100 mmol/L 98-107 Carbon dioxide 27 mmol/L 21-32 Serum or plasma anion gap determination (moles/volume) 12 mmol/L 5-14 Serum or plasma urea nitrogen measurement (mass/volume ) 16 mg/dL 7-18 Serum or plasma creatinine measurement (mass/volume) 0.80 mg/dL 0.60-1.30 Serum or plasma urea nitrogen/creatinine mass ratio 20 NRG Serum or plasma creatinine measurement w ith calculation of estimated glomerular filtration rate > NRG Serum or plasma glucose measurement (mass/volume) 102 mg/dL 70-105 Serum or plasma calcium measurement (mass/volume) 10.0 mg/dL 8.5-10.1 Serum or plasma total bilirubin measurement (mass/volu me) 0.4 mg/dL 0.1-1.0 Serum or plasma alkaline phosphatase татьяна surement (enzymatic activity/volume) 87 U/L 40-136 Serum or plasma aspartate aminotransfera se measurement (enzymatic activity/volume) 20 U/L 5-34 Serum or plasma alanine aminotransferase measurement (enzymatic activity/volume) 18 U/L 0-55 Serum or plasma protein measurement (mass/volume) 7.9 g/dL 6.4-8.2 Serum or plasma albumin measurement (mass/volume) 4.4 g/dL 3.2-4.5 CALCIUM CORRECTED 9.7 mg/dL 8.5-10.1 Lipase - 03/06/20 14:25 Lipase 23 U/L 8-78 Encounters ACCT No. Visit Date/Time Discharge Status Pt. Type Provider Facility Loc./Unit Complaint [id number] 02/29/2020 12:52:00 23:59:59 CLS Outpatient BEATRICE LUO N [facility] ONC PERITONEAL CARCINOMATOS IS [id number] 02/22/2020 13:21:00 23:59:59 CLS Outpatient BEATRICE LUO N [facility] ONC [id number] 02/15/2020 09:52:00 23:59:59 CLS Outpatient BEATRICE LUO N [facility] ONC [id number] 02/08/2020 14:42:00 23:59:59 CLS Outpatient BEATRICE LUO N [facility] ONC [id number] 02/01/2020 10:05:00 23:59:59 CLS Outpatient BEATRICE LUO N [facility] ONC [id number] 01/25/2020 10:06:00 23:59:59 CLS Outpatient BEATRICE LUO N [facility] ONC [id number] 01/11/2020 08:37:00 23:59:59 CLS Outpatient BEATRICE LUO N [facility] ONC [id number] 01/04/2020 08:54:00 23:59:59 CLS Outpatient BEATRICE LUO N [facility] ONC [id number] 12/28/2019 09:06:00 23:59:59 CLS Outpatient PUJABEATRICE N V [facility] ONC [id number] 12/22/2019 11:35:00 23:59:59 CLS Outpatient PUJABEATRICE MORALES N [facility] RAD OVARIAN CANCER [id number] 12/20/2019 11:56:00 23:59:59 CLS Outpatient PUJABEATRICE MORALES N [facility] ONC [id number] 12/14/2019 10:31:00 23:59:59 CLS Outpatient BEATRICE LUO N [facility] ONC [id number] 11/30/2019 09:15:00 23:59:59 CLS Outpatient BEATRICE LUO N [facility] ONC [id number] 11/27/2019 08:57:00 23:59:59 CLS Outpatient ANITA VERDUZCO [facility] CARD ENCOUNTER MONIT ORING CARDIOTOXIC DRUG THERAPY [id number] 11/02/2019 10:16:00 23:59:59 CLS Outpatient BEATRICE LUO N [facility] ONC [id number] 09/28/2019 14:09:00 23:59:59 CLS Outpatient BEATRICE LUO N [facility] ONC [id number] 09/27/2019 13:05:00 23:59:59 CLS Outpatient PUJA, BOBAN N [facility] RAD OVARIAN CANCER [id number] 09/13/2019 09:58:00 23:59:59 CLS Outpatient PUJA BOBAN N [facility] ONC [id number] 08/21/2019 11:00:00 23:59:59 CLS Outpatient PUJABEATRICE N [facility] ONC [id number] 07/24/2019 10:24:00 23:59:59 CLS Outpatient PUJABEATRICE N V [facility] ONC [id number] 05/25/2019 14:11:00 23:59:59 CLS Outpatient PUJABEATRICE N [facility] ONC [id number] 05/03/2019 09:07:00 23:59:59 CLS Outpatient PUJABEATRICE N [facility] ONC [id number] 04/12/2019 13:05:00 23:59:59 CLS Outpatient BEATRICE LUO N [facility] ONC [id number] 03/22/2019 09:01:00 23:59:59 CLS Outpatient BEATRICE LUO N [facility] ONC [id number] 02/08/2019 10:58:00 23:59:59 CLS Outpatient BEATRICE LUO N [facility] ONC [id number] 02/08/2019 10:54:00 23:59:59 CLS Outpatient CHRISTOPHER CRAWFORD DO [facility] LAB [id number] 01/18/2019 09:51:00 23:59:59 CLS Outpatient BEATRICE LUO N [facility] ONC [id number] 01/17/2019 08:43:00 09:45:00 DIS Outpatient PUJAMOSIE MORALESAN N [facility] ONC [id number] 11/09/2018 08:41:00 23:59:59 CLS Outpatient TEMITOPE ALICIA DO [facility] RAD ADNEXAL MASS, ABNORMAL TUMOR MARKERS [id number] 11/08/2018 08:35:00 23:59:59 CLS Outpatient JACKELIN LEONE, [place] V [facility] RAD ELEVATED BREAST CA AND ABD DISCOMFORT [id number] 11/03/2018 12:47:00 019 23:59:59 CLS Outpatient TEMITOPE ALICIA DO [facility] RAD POSTMENOPAUSAL BLEEDING [id number] 08/28/2015 09:30:00 015 23:59:59 CLS Outpatient KEENA DU MD [facility] ONC [id number] 07/09/2015 08:26:00 015 00:01:00 DIS Outpatient KEENA DU MD [facility] ONC [id number] 03/06/2020 14:37:00 Document Registration [id number] 09/19/2019 09:25:00 Document Registration [id number] 03/01/2019 11:52:00 Document Registration
--- OUTSIDE RECORDS SUMMARY | 2020-03-06 15:26 | XMS REPORT ---
Author Author [employer]. student education specialist [employer] [facility] [employer]. [facility] Address [address] [place] [address] Care Team Providers Care Counselor At Law Name Role Phone CEZAR READ Giorgio Unavailable CHRISTOPHER CRAWFORD PCP BEATRICE LUO Unavailable Unavailable BEATRICE LUO MD Unavailable Unavailable ANITA VELASQUEZ Unavailable Unavailable KING BLANTON MD Unavailable Unavailable BETTYE LEONE, CAR Diaz Unavailable Unavailable Unavailable Unavailable Unavailable Unavailable Unavailable Unavailable Allergies Normalized Allergy Reported Date of Reaction(s) Care Provider Facility Allergy Type classification allergen Allergy Onset DA (21 Unclassified No Allergy 11-09-2018 - no information TOM DU , Not Available sources.) Information (62968) Available Medications The data below is from unstructured sourcesNo medication information available.No medication information available.No medication information available. Problems Active Problems Problem Normalized Date Last Normalized Normalized Provider Fa cility Classification Problem(s) Recorded Problem Problem Sta tus Duration Residual Acquired 03-01-2020 - Episodic Active BOBAN PUJA N ot Available codes; absence of (84779) unclassified bilateral (21 sources.) breasts and nipples Residual Acquired 03-01-2020 - Episodic Active BOBAN PUJA , [facility] Via codes; absence of MD Baez unclassified both cervix Hospital - (2 sources.) and uterus [place] (31479) Residual Acquired Episodic Active BOBAN PUJA , [facility] Via codes; absence of MD Baez unclassified left breast Hospital - (7 sources.) and nipple [place] (77631) Residual Acquired Episodic Active BOBAN PUJA Not Availa ble codes; absence of (13356) unclassified other genital (21 sources.) organ(s) Residual Acquired 03-01-2020 - Episodic Active BOBAN PUJA , [facility] Via codes; absence of MD Baez unclassified other organs Hospital - (7 sources.) [place] (81008) Residual Acquired 03-01-2020 - Episodic Active BOBGEOVANI PUJA , [facility] Via codes; absence of [facility] unclassloretta other Hospital - (13 sources.) specified [place] parts of (58958) digestive tract Residual Acquired 03-01-2020 - Episodic Active BOBAN PUJA , [facility] Via codes; absence of MD Baez unclassified ovaries, Hospital - (2 sources.) bilateral [place] (18892) Residual Acquired 03-01-2020 - Episodic Active BOBAN PUJA N ot Available codes; absence of (97243) unclassified spleen (21 sources.) Adverse Adverse effect Episodic Active BOBAN PUJA [facility] Via effects of of [facility] antineoplastic Hospital - (5 sources.) and [place] immunosuppress (89223) carlos drugs, initial encounter Other Elevated Episodic Active BOBAN PUJA , [facility] Via screening for cancer antigen MD Baez suspected 125 [CA 125] Hospital - conditions [place] (not mental (15278) disorders or infectious disease) (10 sources.) Other Encounter for Episodic Active BOBGEOVANI PUJA [facility] V ia aftercare (13 adjustment and [facility] sources.) management of Hospital - vascular [place] access device (54039) Maintenance Encounter for Chronic Active KEENA DU No t Available chemotherapy; radiotherapy (25658) radiotherapy Translations: (20 sources.) [ ENCOUNTER FOR ANTINEOPLASTIC CHEMOTHERAP] Other Encounter for Episodic Active BOBAN PUJA , [facility] Via aftercare (3 therapeutic MD Baez sources.) drug level Hospital - monitoring [place] (57883) Residual Family history Episodic Active BOBAN PUJA Not Available codes; of malignant (21101) unclassified neoplasm of (21 sources.) breast Residual Family history Episodic Active BOBAN PUJA Not Available codes; of malignant (64935) unclassified neoplasm of (21 sources.) digestive organs Other Ileostomy 03-01-2020 - Chronic Active BOBAN PUJA , [facility] Via gastrointestin status MD Baez al disorders Hospital - (5 sources.) [place] (25960) Other Intra-abdomina Episodic Active JAMAICA BENÍTEZ , Not Available gastrointestin l and pelvic (93386) al disorders swelling, mass (7 sources.) and lump, unspecified site 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 TEMITOPE ALICIA , Not Avai lable aftercare (7 (current) use DO (24993) sources.) of selective estrogen receptor modulators (SERMs) Cancer of Malignant 03-01-2020 - Chronic Active BOBGEOVANI PUJA Not Available ovary (22 neoplasm of (49272) sources.) right ovary Translations: [ MALIGNANT NEOPLASM OF LEFT OVARY, MALIGNANT NEOPLASM OF RIGHT OVARY, MALIGNANT NEOPLASM OF LEFT OVARY, MALIGNANT NEOPLASM OF UNSPECIFIED OVARY] Cancer of Malignant Chronic Active KEENA DU , Not Avai lable breast (25 neoplasm of (93144) sources.) unspecified site of unspecified female breast Translations: [ MAL DAVE BREAST UP-OUTER, MALIG NEOPLASM OF UPPER-OUTER QUADRANT O] Other Other ascites Episodic Active BEATRICE LUO , [facility] Via gastrointestin MD Baez al disorders Hospital - (3 sources.) [place] (44450) Other Other long 03-01-2020 - Episodic Active CHRISTOPHER Not Available aftercare (18 term (current) TY , (86666) sources.) drug therapy DO Diseases of Other Chronic Active CHRISTOPHER Not Availab le white blood neutropenia TY , (47558) cells (8 Translations: DO sources.) [ 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) Cancer of Personal 03-01-2020 - Episodic Active JAMAICA BENÍTEZ , Not Available breast (22 history of (76386) sources.) malignant neoplasm of breast Residual Physical Episodic Active BEATRICE LUO [facility] Via codes; restraint MD Baez unclassified status Hospital - (2 sources.) [place] (44817) Other female Polyp of Episodic Active TEMITOPE ALICIA , Not Av ailable genital corpus uteri DO (12011) disorders (11 sources.) Residual Procedure and 02-27-2020 - Episodic Active BOBAN LD MORALES , [facility] Via codes; treatment not MD Baez unclassified carried out, Hospital - (2 sources.) unspecified [place] reason (96258) Secondary Secondary 03-01-2020 - Chronic Active BEATRICE LUO , [facility] Via malignancies malignant MD Baez (13 sources.) neoplasm of Hospital - 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[place] m and (54473) peritoneum Past or Other Problems Problem Normalized Date Last Normalized Normalized Provider Fa cility Classification Problem(s) Recorded Problem Problem Sta tus Duration Adverse Adverse effect no information no information BEATRICE OCONNOR [facility] Via effects of of [facility] antineoplastic Hospital - (1 source.) and [place] immunosuppress (82074) carlos drugs, initial encounter Other Other ascites no information no information TEMITOPE SH AW , Not Available gastrointestin DO (79094) al disorders (4 sources.) Procedures The data below is from unstructured sourcesNo known history of procedures.No procedure information available.No procedure i nformation available. Immunizations Normalized Immunization Date Notes Care Provider Facili ty Immunization meningococcal B 03-09-2019 no information no name [facility]. vaccine, [facility] - recombinant, OMV, MARCY (80753) adjuvanted meningococcal B 12-08-2018 no information no name [facility]. vaccine, Historical Data Code recombinant, OMV, (26432) adjuvanted meningococcal 03-09-2019 no information no name [facility]. oligosaccharide [facility]ENTER - (groups A, C, Y and MARCY (85518) W-135) diphtheria toxoid conjugate vaccine (MCV4O) meningococcal 12-08-2018 no information no name [facility]. oligosaccharide Historical Data Code (groups A, C, Y and (23710) W-135) diphtheria toxoid conjugate vaccine (MCV4O) pneumococcal 12-08-2018 no information no name [facility]. conjugate vaccine, Historical Data Code 13 valent (05276) pneumococcal 03-09-2019 no information no name [facility]. polysaccharide [facility]ENTER - vaccine, 23 valent MARCY (69883) vaccine no information CHRISTOPHER CRAWFORD [place] V ia Translations: [ [address] [facility] vaccine] (56942) Results Test Name Value Interpretation Reference Range Date Time Fa cility (Normalized) (Normalized) (Medline Reference) laboratory on 2020-03-06 Albumin 4.4 g/dL (NEG) 3.4 - 5.4 g/dL 03-06-2020 PENDING LOCATION [Mass/Vol] 10:-0 [facility] (45311) ALP [Catalytic 87 U/L (NEG) 44 - 147 U/L 03-06-2020 PEND ING LOCATION activity/Vol] 10: [facility] () ALT [Catalytic 18 U/L (NEG) 4 - 40 U/L 03-06-2020 PENDIN G LOCATION activity/Vol] 10: [facility] (03194) Anion gap 12 mmol/L (NEG) 3 - 11 mmol/L 03-06-2020 PENDING LOCATION [Moles/Vol] 10: [facility] (89631) AST [Catalytic 20 U/L (NEG) 10 - 34 U/L 03-06-2020 PENDI NG LOCATION activity/Vol] 10: [facility] () Basophils (Bld) 0.0 10*3/uL (NEG) 0 - 0.3 10*3/uL 03-06-2020 PENDING LOCATION [#/Vol] 10: [facility] (10866) Basophils/100 0 % (NEG) 0.5 - 1 % 03-06-2020 PENDING LOCATION WBC (Bld) 10: [facility] () Bilirubin 0.4 mg/dL (NEG) 0.1 - 1.2 mg/dL 03-06-2020 PENDIN G LOCATION [Mass/Vol] 10: [facility] () Calcium 10.0 mg/dL (NEG) 8.5 - 10.2 mg/dL 03-06-2020 PEND ING LOCATION [Mass/Vol] 10: [facility] (70825) Calcium 9.7 mg/dL (NEG) 8.5 - 10.2 mg/dL 03-06-2020 PENDI NG LOCATION [Mass/Vol] 10: [facility] (64530) Chloride 100 mmol/L (NEG) 95 - 106 mmol/L 03-06-2020 PENDI NG LOCATION [Moles/Vol] 10: [facility] (79780) CO2 [Moles/Vol] 27 mmol/L (NEG) 23 - 29 mmol/L 03-06-2020 P ENDING LOCATION 10:25-0400 [facility] (50445) Creatinine 0.80 mg/dL (NEG) 03-06-2020 PENDING LOCATI ON [Mass/Vol] 10:25-0400 [facility] (33126) Creatinine and > (no code) 03-06-2020 PENDING LOC ATION Glomerular 10:25-0400 [facility] (00144) filtration rate.predicted panel - Serum, Plasma or Blood Eosinophils 0.0 10*3/uL (NEG) 0.05 - 0.5 03-06-2020 PENDING LOCATION (Bld) [#/Vol] 10*3/uL 10:25-0400 [facility] (72579) Eosinophils/100 0 % (NEG) 1 - 4 % 03-06-2020 [facility] LOCATION WBC (Bld) 10:25-0400 [facility] (04197) Erythrocyte 15.9 % (H) 11.6 - 14.6 % 03-06-2020 [facility] LOCATION distribution 10:25-0400 [facility] (81922) width (RBC) [Ratio] Glucose 102 mg/dL (NEG) 60 - 125 mg/dL 03-06-2020 PENDING LOCATION [Mass/Vol] 10:25-0400 [facility] (63452) Hematocrit (Bld) 35 % (NEG) 36.1 - 50.3 % 03-06-2020 P ENDING LOCATION [Volume 10:25-0400 [facility] (72223) fraction] Hemoglobin (Bld) 11.6 g/dL (NEG) 12.1 - 17.2 g/dL 03-06-2020 PENDING LOCATION [Mass/Vol] 10:25-0400 [facility] (59555) Lipase 23 U/L (NEG) 10 - 73 U/L 03-06-2020 PENDING LO CATION [Catalytic 10:25-0400 [facility] (01023) activity/Vol] Lymphocytes 0.9 10*3/uL (L) 0.9 - 2.9 03-06-2020 PENDING LOCATION (Bld) [#/Vol] 10*3/uL 10:25-0400 [facility] (21338) Lymphocytes/100 15 % (NEG) 20 - 40 % 03-06-2020 [facility] LOCATION WBC (Bld) 10:25-0400 [facility] (73619) MCH (RBC) 32 pg (NEG) 27 - 31 pg 03-06-2020 PENDING LOC ATION [Entitic mass] 10:25-0400 [facility] (64374) MCHC (RBC) 33 g/dL (NEG) 32 - 36 g/dL 03-06-2020 PENDING LOCATION [Mass/Vol] 10:25-0400 [facility] (29418) MCV (RBC) 96 (NEG) 03-06-2020 PENDING LOCATI ON [Entitic vol] 10:25-0400 [facility] (56485) Monocytes (Bld) 0.6 10*3/uL (NEG) 0.3 - 0.9 03-06-2020 PEND ING LOCATION [#/Vol] 10*3/uL 10:25-0400 [facility] (88707) Monocytes/100 9 % (NEG) 2 - 8 % 03-06-2020 PENDING LOCATION WBC (Bld) 10:25-0400 [facility] (63574) Neutrophils 4.7 10*3/uL (NEG) 1.7 - 7 10*3/uL 03-06-2020 [facility] LOCATION (Bld) [#/Vol] 10:25-0400 [facility] (18814) Neutrophils/100 76 % (H) 40 - 60 % 03-06-2020 PENDIN G LOCATION WBC (Bld) 10:25-0400 [facility] (39588) Platelet mean 9.7 (NEG) 03-06-2020 PENDING LOCA TION volume (Bld) 10:25-0400 [facility] (84939) [Entitic vol] Platelets (Bld) 383 10*3/uL (NEG) 150 - 450 03-06-2020 PEND ING LOCATION [#/Vol] 10*3/uL 10:25-0400 [facility] (31103) Potassium 3.6 mmol/L (NEG) 3.7 - 5.2 mmol/L 03-06-2020 PEND ING LOCATION [Moles/Vol] 10:25-0400 [facility] (31337) Protein 7.9 g/dL (NEG) 6.4 - 8.3 g/dL 03-06-2020 PENDING LOCATION [Mass/Vol] 10:25-0400 [facility] (36181) RBC (Bld) 3.61 10*6/uL (L) 4.2 - 6.1 03-06-2020 PENDING L OCATION [#/Vol] 10*6/uL 10:250400 [facility] (28619) Sodium 139 mmol/L (NEG) 135 - 145 mmol/L 03-06-2020 PEND ING LOCATION [Moles/Vol] 10:250400 [facility] (27470) Urea nitrogen 16 mg/dL (NEG) 7 - 20 mg/dL 03-06-2020 PENDI NG LOCATION [Mass/Vol] 10:250400 [facility] (68401) Urea 20 mg/mg (no code) 6 - 22 mg/mg 03-06-2020 PENDING L OCATION nitrogen/Creatin 10:25-0400 [facility] (26789) ine [Mass ratio] WBC (Bld) 6.3 10*3/uL (NEG) 3.5 - 10.5 03-06-2020 PENDING L OCATION [#/Vol] 10*3/uL 10:250400 [facility] (12373) Vital Signs The data below is from unstructured sourcesNo known vital signs results.No vital sign information available.No vital sign information available. Interventions No Information Plan of Treatment The data below is from unstructured sources Prescriptions See Medication Section Goals No Information Social History No Information Functional Status The data below is from unstructured sourcesNo functional status results.No functional status information available.No functional status information available. Mental Status No Information Encounters Encounter Normalized Encounter Encounter Diagnosis Care Provi yanira Organization Date Type 01-17-2019 Discharged Recurring no information BEATRICE LUO Work no organization name - 01-18-2019 03-06-2020 Emergency department no information CAR BROOKS MD [facility] patient visit (no phone) [facility] [address] (no phone) 02-29-2020 Patient encounter no information BEATRICE LUO MD (no [facility] Via [facility] procedure phone) [facility] [address] (no phone) 02-22-2020 Patient encounter no information BEATRICE LUO MD (no [facility] Via [facility] procedure phone) [facility] [address] (no phone) 02-15-2020 Patient encounter no information BEATRICE LUO MD (no [facility] Via [facility] procedure phone) [facility] [address] (no phone) 02-08-2020 Patient encounter no information BEATRICE LUO MD (no [facility] Via [facility] procedure phone) [facility] [address] (no phone) 02-01-2020 Patient encounter no information BEATRICE LUO MD (no [facility] Via [facility] procedure phone) [facility] [address] (no phone) 01-25-2020 Patient encounter no information BEATRICE LUO MD (no [facility] Via [facility] procedure phone) [facility] [address] (no phone) 01-11-2020 Patient encounter no information BEATRICE LUO MD (no [facility] Via [facility] procedure phone) [facility] [address] (no phone) 01-04-2020 Patient encounter no information BEATRICE LUO MD (no [facility] Via [facility] procedure phone) [facility] [address] (no phone) 12-28-2019 Patient encounter no information BEATRICE LUO MD (no [facility] Via [facility] procedure phone) [facility] [address] (no phone) 12-22-2019 Patient encounter no information BEATRICE LUO MD (no [facility] Via [facility] procedure phone) [facility] [address] (no phone) 12-20-2019 Patient encounter no information BEATRICE LUO MD (no [facility] Via [facility] procedure phone) [facility] [address] (no phone) 12-14-2019 Patient encounter no information BEATRICE LUO MD (no [facility] Via [facility] procedure phone) [facility] [address] (no phone) 11-30-2019 Patient encounter no information BEATRICE LUO MD (no [facility] Via [facility] procedure phone) [facility] [address] (no phone) 11-27-2019 Patient encounter no information ANITA GAGE SOLE LEVELER [facility] Via [facility] procedure (no phone) [facility] [address] (no phone) 11-02-2019 Patient encounter no information BEATRICE LUO MD (no [facility] Via [facility] procedure phone) [facility] [address] (no phone) 09-28-2019 Patient encounter no information BEATRICE LUO MD (no [facility] Via [facility] procedure phone) [facility] [address] (no phone) 09-27-2019 Patient encounter no information BEATRICE LUO MD (no [facility] Via [facility] procedure phone) [facility] [address] (no phone) 09-19-2019 Patient encounter no information BEATRICE LUO MD (no [facility] Via [facility] procedure phone) [facility] [address] (no phone) 09-13-2019 Patient encounter no information BEATRICE LUO MD (no [facility] Via [facility] procedure phone) [facility] [address] (no phone) 08-21-2019 Patient encounter no information BEATRICE LUO MD (no [facility] Via [facility] procedure phone) [facility] [address] (no phone) 07-24-2019 Patient encounter no information no name no or ganization name procedure 07-24-2019 Patient encounter no information BEATRICE LUO MD (no [facility] Via [facility] procedure phone) [facility] [address] (no phone) 05-25-2019 Patient encounter no information BEATRICE LUO MD (no [facility] Via [facility] procedure phone) [facility] [address] (no phone) 05-03-2019 Patient encounter no information no name no or ganization name procedure 05-03-2019 Patient encounter no information no name no or ganization name procedure 04-12-2019 Patient encounter no information no name no or ganization name procedure 04-12-2019 Patient encounter no information no name no or ganization name procedure 03-22-2019 Patient encounter no information no name no or ganization name procedure 03-01-2019 Patient encounter no information no name no or ganization name procedure 03-01-2019 Patient encounter no information no name no or ganization name procedure 02-08-2019 Patient encounter no information no name no or ganization name procedure 01-18-2019 Patient encounter no information no name no or ganization name procedure 01-17-2019 Patient encounter no information no name no or ganization name - procedure 01-18-2019 01-17-2019 Patient encounter no information BEATRICE LUO MD (no [facility] - procedure phone) [facility] 01-18-2019 (no phone) 11-09-2018 Patient encounter no information no name no or ganization name procedure 11-08-2018 Patient encounter no information no name no or ganization name procedure 11-03-2018 Patient encounter no information no name no or ganization name procedure 08-28-2015 Patient encounter no information no name no or ganization name procedure 07-09-2015 Patient encounter no information no name no or ganization name - procedure 07-24-2015 Patient encounter no information no name no organizat ion name procedure Medical Equipment No Information Payers Normalized Payer Value Self-pay no information ([id number]) Discharge Instructions No hospital discharge instructions.No hospital discharge instruction information available. Advance Directives No advance directive information available. Additional Source Comments This clinical document has been generated using [employer] software that has been certified by the Office of the National Coordinator for Health Information Technology (ONC 15.99.04.3023.Diam.31.00.0.552335) and the National Committee for [employer] (NCQA, as an eMeasure certified technology). FOR RECORDS PERTAINING TO PATIENTS WHO ARE OR HAVE BEEN ENROLLED IN A CHEMICAL D EPENDENCY/SUBSTANCE ABUSE PROGRAM, SOME INFORMATION MAY BE OMITTED. This clinica l summary was aggregated from multiple sources. Caution should be exercised in using it in the provision of clinical care. This summary normalizes information from multiple sources, and as a consequence, information in this document may ma terially change the coding, format and clinical context of patient data. In sonja tion, data may be omitted in some cases. CLINICAL DECISIONS SHOULD BE BASED ON T HE PRIMARY CLINICAL RECORDS. [email or web address] provides no warranty or guara ntee of the accuracy or completeness of information in this document.The followi ng information is based on time limited clinical information
--- NOTE | 2020-03-06 15:52 | Diagnostic Imaging Report ---
PROCEDURE: CT abdomen and pelvis with contrast. TECHNIQUE: Multiple contiguous axial images were obtained through the abdomen and pelvis after administration of intravenous contrast. Auto Exposure Controls were utilized during the CT exam to meet ALARA standards for radiation dose reduction. INDICATION: Abdominal pain. Nausea and vomiting. History of breast and ovarian cancer. COMPARISON: 12/22/2019. FINDINGS: Included portions of the lung bases are clear. CT ABDOMEN: Mild amount of free fluid is again identified within the left hemiabdomen. This is diminished in volume when compared to 12/22/2019. There is low-density fluid within the right hemiabdomen as well. This is increased in volume when compared to 12/22/2019. Although there is no peripheral enhancing rim to suggest encapsulation, there is resultant mass effect on the ascending colon. 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 No omental or peritoneal masses are identified. There is no abnormal mesenteric or retroperitoneal adenopathy. A few prominent mildly distended loops of small bowel are also noted within the right hemiabdomen. At its widest, the small bowel measures approximately 4.3 cm in diameter. There is no pneumatosis, pneumoperitoneum, or portal venous gas. Normal appendix is identified. The kidneys, adrenal glands, pancreas, and liver have a normal CT appearance. Spleen is absent. Osseous structures show no acute abnormalities. CT PELVIS: Urinary bladder is grossly unremarkable. Nonencapsulated free fluid is also identified within the pelvis. There is no free air. No abnormal pelvic adenopathy is seen. Osseous structures show no acute abnormalities. IMPRESSION: 1. Interval increase in low-density nonencapsulated fluid within the right hemiabdomen. 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 2. Interval decrease in free fluid within the left hemiabdomen and pelvis. 3. Mildly prominent dilated loops of small bowel within the right upper abdominal quadrant. Findings could be on the basis of localized ileus. Developing obstruction is not entirely excluded. Dictated by: Dictated on workstation # [id number]
[2020-03-06 16:25] LABS: BILIRUBIN,URINE NEGATIVE (NEGATIVE); CLARITY,URINE CLEAR; COLOR,URINE YELLOW; GLUCOSE, URINE (UA) NEGATIVE (NEGATIVE); KETONES,URINE 3+ (NEGATIVE); LEUKOCYTE ESTERASE ,URINE NEGATIVE (NEGATIVE); NITRITE,URINE NEGATIVE (NEGATIVE); PH,URINE >=9.0 (5-9); PROTEIN,URINE TRACE (NEGATIVE)
[2020-03-06 16:43] LABS: BACTERIA,URINE FEW /HPF; SQUAMOUS EPITHELIAL CELL,UR RARE /HPF
[2020-03-06] MEDS ORDERED: FLEET ENEMA ADULT 1 EA BTL PR NR (17:45)
--- NOTE | 2020-03-06 17:49 | CONSULTATION REPORT ---
DATE OF SERVICE: ADMITTING PHYSICIAN: Dr. Bonds. ATTENDING PRIMARY CARE PHYSICIAN: Sixto Leos DO HISTORY OF PRESENT ILLNESS: The patient is a 59-year-old female with history of metastatic ovarian cancer. 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 She underwent a total abdominal hysterectomy, omentectomy, appendectomy, cholecystectomy and splenectomy. She also underwent a low anterior resection and diverting colostomy, which was eventually reversed. Since that time, she has been following Dr. Boothe. Since 11/2008, she has had some additional findings on CT scan, which were consistent with peritoneal carcinomatosis. She presented today to the Emergency Department with crampy abdominal pain and nausea. 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 She also does have some dilated loops of small bowel, which may indicate some level of ileus. She does report having bowel movements recently. 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 History of breast cancer in 2014. PAST SURGICAL HISTORY: Breast mastectomy, pelvic exenteration for locally advanced ovarian cancer in 2018. ALLERGIES: No known drug allergies. MEDICATIONS: Unknown at this time. SOCIAL HISTORY: Negative smoke, negative alcohol. FAMILY HISTORY: Noncontributory. VITAL SIGNS: Temperature 36.9, blood pressure 131/90, pulse 108, respirations 18, pulse ox 99% on room air. REVIEW OF SYSTEMS: This is a thin-appearing female, currently in no acute distress. She is not experiencing any shortness of breath or difficulty breathing. No chest pain, palpitations, diaphoresis. Intermittent episodes of nausea, no vomiting. Slight abdominal distention. She is having bowel movements. She does have some mild crampy abdominal pain as well. No red blood per rectum, no dark tarry stools. No fever, chills with some weight loss in the past several months. PHYSICAL EXAMINATION: CHEST: Clear. Good breath sounds bilaterally. HEART: Regular, no murmurs. EXTREMITIES: No lower extremity edema, negative Homans sign. HEENT: No scleral icterus. NECK: No cervical lymphadenopathy. ABDOMEN: Soft, slightly distended with a positive tympany, slight tenderness, which is diffuse. No peritoneal signs. No hernias. SKIN: Warm, dry. LABORATORY DATA: WBC 6.3, hemoglobin 11.6, hematocrit 35, platelets 383. BUN 16, creatinine 0.80. Liver function enzymes are normal. 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 There does not appear to be a full obstruction at this time. We will proceed with conservative management with n.p.o. status, IV fluid hydration and bowel rest as well as adequate pain control and antinausea medications. If she does not improve with conservative therapy, we will then proceed with a contrast study with Gastrografin small bowel follow through. Due to her extensive history, surgery would be risk prohibitive and we would most likely refer her back to her gynecologic oncologist for further recommendations and potential palliative surgical therapy. Job ID: [id number] DocumentID: [id number] Dictated Date: 03/06/2020 17:35:36 Shipping Room Supervisor Date: 03/06/2020 17:48:45 Dictated By: AUBREY BRADLEY MD
[2020-03-06] MEDS ORDERED: CATHETER FLUSH 10 ML SYR IV PRN (18:00)
[2020-03-06] MEDS: LACTATED RINGERS 1,000 ML IV SCH (18:26)
[2020-03-06] MEDS: ENOXAPARIN 40 MG/0.4 ML (LOVENOX) SYR SQ SCH (19:22)
[2020-03-06] MEDS: ONDANSETRON 4 MG/2 ML (SDV) Z0FRAN IV PRN (19:23)
[2020-03-06] MEDS: fentaNYL INJECTION 100 MCG/2 ML AMP IV PRN (19:25)
[2020-03-06 19:34] VITALS: BP 120/84
[2020-03-06 19:35] VITALS: BP 125/76
[2020-03-06 23:30] VITALS: BP 117/74
[2020-03-07] MEDS: LACTATED RINGERS 1,000 ML IV SCH ×2 (02:15→10:06)
[2020-03-07 04:38] VITALS: BP 110/70
[2020-03-07 05:55] LABS: BASOPHILS % (AUTO) 1 % (0-10); EOSINOPHILS # (AUTO) 0.1 10^3/uL (0.0-0.3); EOSINOPHILS % (AUTO) 1 % (0-10); HEMATOCRIT 29 % (35-52); HEMOGLOBIN 9.4 G/DL (11.5-16.0); LYMPHOCYTES # (AUTO) 1.6 X 10^3 (1.0-4.0); LYMPHOCYTES % (AUTO) 36 % (12-44); MEAN CORPUSCULAR HEMOGLOBIN 32 PG (25-34); MEAN CORPUSCULAR HGB CONC 33 G/DL (32-36); MEAN CORPUSCULAR VOLUME 98 FL (80-99); MEAN PLATELET VOLUME 9.3 FL (7.4-10.4); MONOCYTES # (AUTO) 0.9 X 10^3 (0.0-1.0); MONOCYTES % (AUTO) 20 % (0-12); NEUTROPHILS # (AUTO) 1.8 X 10^3 (1.8-7.8); NEUTROPHILS % (AUTO) 41 % (42-75); PLATELET COUNT 309 10^3/uL (130-400); RED CELL DISTRIBUTION WIDTH 16.3 % (10.0-14.5); WHITE BLOOD COUNT 4.4 10^3/uL (4.3-11.0)
[2020-03-07 06:17] LABS: ALANINE AMINOTRANSFERASE 13 U/L (0-55); ALBUMIN 3.3 GM/DL (3.2-4.5); ALKALINE PHOSPHATASE 66 U/L (40-136); BILIRUBIN,TOTAL 0.4 MG/DL (0.1-1.0); BUN/CREATININE RATIO 17; CALCIUM 8.6 MG/DL (8.5-10.1); CARBON DIOXIDE 26 MMOL/L (21-32); CHLORIDE 104 MMOL/L (98-107); CREATININE SERUM 0.76 MG/DL (0.60-1.30); GFR ESTIMATED > 60; GLUCOSE 84 MG/DL (70-105); POTASSIUM 3.7 MMOL/L (3.6-5.0); SODIUM 141 MMOL/L (135-145); TOTAL PROTEIN 5.7 GM/DL (6.4-8.2)
[2020-03-07 06:27] LABS: EOSINOPHILS % (MANUAL) 2 %; LYMPHOCYTES % (MANUAL) 31 %; MONOCYTES % (MANUAL) 18 %; NEUTROPHILS % (MANUAL) 49 %
[2020-03-07 06:28] LABS: ANISOCYTOSIS SLIGHT
[2020-03-07 07:48] VITALS: BP 112/71
--- NOTE | 2020-03-07 08:21 | NUR ---
DR BRADLEY TEXT FOR DIET ORDER IF POSSIBLE
[2020-03-07 11:28] VITALS: BP 130/80
[2020-03-07] MEDS ORDERED: ACET-2267 PO (12:24)
[2020-03-07] MEDS ORDERED: POLY17PO6 PO (12:24)
[2020-03-07] MEDS ORDERED: VENL75CA93 PO (12:24)
[2020-03-07] MEDS ORDERED: FAMO10TA43 PO (12:24)
[2020-03-07] MEDS ORDERED: DOCU250C11 PO (12:24)
--- NOTE | 2020-03-07 14:04 | NUR ---
SPOKE WITH THE PT AND WENT THRU THE EXT MED HISTORY TO COMPLETE THE MED REC OTC MEDS: PEPCID MIRALAX COLACE XTRA STRENGTH TYLENOL
[2020-03-07 16:00] VITALS: BP 121/83
[2020-03-07] MEDS: ONDANSETRON 4 MG/2 ML (SDV) Z0FRAN IV PRN ×2 (16:29→20:52)
[2020-03-07] MEDS ORDERED: ONDANSETRON 4 MG (ZOFRAN) ORAL DISSOLVE TAB PO PRN (17:15)
[2020-03-07] MEDS ORDERED: diphenhydrAMINE 25 MG TAB (BENADRYL) PO PRN (17:15)
[2020-03-07] MEDS ORDERED: ANTACID SUSP 30 ML UDC (MYLANTA) PO PRN (17:15)
[2020-03-07] MEDS ORDERED: ACETAMINOPHEN 325 MG TABLET PO PRN (17:15)
[2020-03-07] MEDS ORDERED: MELATONIN 3 MG TABLET PO PRN (17:15)
--- NOTE | 2020-03-07 17:17 | History & Physical-Hospitalist ---
History of Present Illness HPI/Chief Complaint Lou Sandoval is a 59-year-old female with past medical history of metastatic ovarian cancer currently on chemotherapy following with Dr. Boothe who presented with abdominal pain. She also had associated nausea and vomiting. She has been having bowel movements. Upon my examination she is passing gas this morning. She denies any fevers or chills. She denies any chest pain or palpitations. She denies any shortness of breath or cough. She denies any dysuria. She has no other complaints or concerns. Source: patient Exam Limitations: no limitations Date Seen 03/07/20 Time Seen by a Provider: 09:40 Attending Physician Thomas Watkins MD PCP Sixto Leos DO Referring Physician Date of Admission March 06, 2020 at 16:11 Home Medications & Allergies Home Medications Reviewed patient Home Medication Reconciliation performed by pharmacy medication reconciliations brass instrument repair technician and/or nursing. Patients Allergies have been reviewed. Allergies Allergies Coded Allergies No Allergy Information Available (Unverified11/09/18) Past Innbhiu-Otgyud-Vnbyxx Hx Past Med/Social Hx: Reviewed Nursing Past Med/Soc Hx Patient Social History Alcohol Use: Denies Use Recreational Drug Use: No Smoking Status: Never a Smoker Recent Foreign Travel: No Contact w/other who traveled: Yes (Pt.'s son was in [place], pt. was around him in late December ) Recent Hopitalizations: No Recent Infectious Disease Expo: No Past Medical History Surgeries: Appendectomy, Gallbladder, Hysterectomy Cancer: Ovarian Did You Recieve Any Treatments: Yes What Type of Treatment Did You: Chemotherapy, Surgical Intervention History of Blood Disorders: No Family History Hypertension 19 MOTHER Neoplasm 19 FATHER (luekemia) G8 SISTER Review of Systems Constitutional: no symptoms reported EENTM: no symptoms reported Respiratory: no symptoms reported Cardiovascular: no symptoms reported Gastrointestinal: abdominal pain, nausea, vomiting Genitourinary: no symptoms reported Musculoskeletal: no symptoms reported Skin: no symptoms reported Psychiatric/Neurological: No Symptoms Reported Physical Exam Physical Exam Vital Signs Vital Signs - First Documented 03/06/20 03/06/20 13:55 19:34 Temp 36.9 Pulse 108 Resp 18 B/P (MAP) 131/90 (104) Pulse Ox 99 O2 Delivery Room Air Capillary Refill : Less Than 3 SecondsLess Than 3 Seconds Height, Weight, BMI Height: '" Weight: lbs. oz. kg; 22.57 BMI Method: General Appearance: No Apparent Distress, WD/WN HEENT: PERRL/EOMI, Pharynx Normal Neck: Normal Inspection, Supple Respiratory: Lungs Clear, Normal Breath Sounds, No Respiratory Distress Cardiovascular: Regular Rate, Rhythm, No Edema, No Murmur Gastrointestinal: Normal Bowel Sounds, Soft, Tenderness (Diffusely) Extremity: Normal Inspection, Non Tender, No Pedal Edema Neurologic/Psychiatric: Alert, Oriented x3, No Motor/Sensory Deficits, Normal Mood/Affect Skin: Normal Color, Warm/Dry Results Results/Procedures Labs Laboratory Tests 03/06/20 14:25 03/07/20 05:45 Patient resulted labs reviewed. Imaging: Reviewed Imaging Report Assessment/Plan Admission Diagnosis Ileus Admission Status: Inpatient Order (span 2 midnights) Reason for Inpatient Admission: Ileus requiring close monitoring and treatment Assessment and Plan Ileus CT abdomen consistent with ileus Gen. surgery consulted, appreciate assistance Started on IV fluids, continue Nothing by mouth on arrival, advance diet this morning Pain regimen ordered Antiemetics ordered Metastatic ovarian cancer CT appeared to show progression of carcinomatosis Oncology consulted, appreciate assistance DVT prophylaxis: Lovenox Diagnosis/Problems Diagnosis/Problems (1) Ileus Status: Acute (2) Ovarian cancer Status: Acute Qualifiers: Laterality: unspecified laterality Qualified Codes: C56.9 - Malignant neoplasm of unspecified ovary (3) Peritoneal carcinomatosis Status: Acute Clinical Quality Measures DVT/VTE Risk/Contraindication: Risk Factor Score Per Nursin RFS Level Per Nursing on Admit: 4+=Very High THOMAS WATKINS MD March 07, 2020 17:17
[2020-03-07] MEDS: ENOXAPARIN 40 MG/0.4 ML (LOVENOX) SYR SQ SCH (18:11)
--- NOTE | 2020-03-07 18:29 | CONSULTATION REPORT ---
DATE OF SERVICE: 03/07/2020 The patient is admitted to room 417. IMPRESSION: 1. A 59-year-old female admitted with intractable nausea and vomiting for the past two days. 2. Probable partial small-bowel obstruction by admission CT scan. 3. Recurrent ovarian cancer and on chemotherapy. 4. Intermittent constipation. RECOMMENDATIONS: 1. Continue bowel rest and IV fluids. 2. Agree with surgical consultation and monitored the patient serially. 3. If this is partial small-bowel obstruction and resolves with bowel rest, resume clear liquid diet and advance as tolerated. 4. The patient may need an enema to relieve constipation. 5. Continue bowel regimen to prevent further constipation. 6. We will hold chemotherapy at this point. 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 She underwent TAHBSO, omentectomy with bowel resection and HIPEC in early 2018. She completed adjuvant chemotherapy with carboplatin and paclitaxel regimen x6 cycles, but was noted to have increasing tumor markers by late fall. She was started on second line chemotherapy with Doxil, but had progressive disease. Most recently, she is on topotecan and Avastin regimen and was tolerating this well. The patient came to the emergency room with 2-day history of intractable nausea and vomiting. She has had 1 or 2 days of constipation prior to this. As she was having significant abdominal pain and could not control the nausea and vomiting, she was evaluated at the emergency room and admitted for further management. CT scan done at the time of evaluation in the emergency room showed either ileus or partial small-bowel obstruction. PAST MEDICAL HISTORY: Significant for diagnosis of ovarian cancer in early 2018 as mentioned above. She has previous history of left breast cancer diagnosed in 2014 and underwent modified radical mastectomy and axillary node dissection and a simple right mastectomy. She underwent adjuvant chemotherapy and chest wall radiation and adjuvant hormonal therapy until 10/2018. No other major medical problems. PAST SURGICAL HISTORY: Include bilateral mastectomy with left axillary node dissection in 2014. TAHBSO, omentectomy, appendectomy, cholecystectomy, splenectomy and low anterior resection with anastomosis, followed by HIPEC in early 11/2018. SOCIAL HISTORY: The patient is and lives in [place], [place]. She has three children, a son and 2 daughters. Her son is working as a svp digital sales. One daughter is in college and the youngest daughter is a senior in high school. 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 She has no history of tobacco, alcohol or other recreational drug use. FAMILY HISTORY: Significant for a father who was diagnosed with polycythemia vera in his late 70s and acute myeloid leukemia at 84 years of age. Her sister was diagnosed with myelofibrosis at 57 years of age and a few years later. Brother was diagnosed with nonmelanoma skin cancers at 55 years of age. Paternal aunt developed breast cancer in her late 50s and stomach cancer in her 60s. Paternal uncle had colon cancer while in his upper 60s. A cousin on the paternal side of family had breast cancer at 50 years of age. PHYSICAL EXAMINATION: GENERAL: Today showed an elderly female, well developed and nourished, awake and oriented, in mild discomfort because of abdominal pain. VITAL SIGNS: Temperature was 36.6 degree centigrade, pulse rate of 90, respirations 18, blood pressure 121/83 with oxygen saturation of 98% on room air. HEENT: Normocephalic, extraocular muscles intact, conjunctivae pink, oral mucosa moist. NECK: Supple, with no JVD. No cervical, supraclavicular or axillary lymphadenopathy palpable. CHEST: Showed a port. LUNGS: Fairly clear to auscultation without wheezes or rales. CARDIOVASCULAR: Regular in rate and rhythm without murmurs or gallops. ABDOMEN: Soft with hypoactive bowel sounds. Mild diffuse tenderness without guarding or rebound. No hepatosplenomegaly or other masses palpable. EXTREMITIES: Showed no edema. NEUROLOGIC: Grossly intact without focal motor deficits. LABORATORY DATA: CBC done today showed WBC 4.4, hemoglobin 9.4 and platelet count 309,000 with neutrophil count 1.8, lymphocyte count 1.6 and monocyte count 0.9. Chemistry panel showed normal electrolytes. BUN was 13 and creatinine 0.76 with GFR more than 60 mL per minute. Liver function studies were within normal limits. Urinalysis was unremarkable. CT scan of the abdomen and pelvis done yesterday at the emergency room showed interval increase in low density non-encapsulated fluid within the right hemiabdomen. 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 Interval decrease in free fluid within the left hemiabdomen and pelvis. Mildly prominent dilated loops of small bowel within the right upper abdominal quadrant could be on the basis of localized ileus. Developing obstruction is not excluded. Thank you for allowing me to participate in this patient's care. I will follow the patient with you and make appropriate recommendations. Job ID: [id number] DocumentID: [id number] Dictated Date: 03/07/2020 17:50:32 Apparel Patternmaker Date: 03/07/2020 18:28:49 Dictated By: BEATRICE LUO MD
[2020-03-07 20:49] VITALS: BP 123/71
[2020-03-07] MEDS: DOCUSATE SODIUM 100 MG (COLACE) CAP PO SCH ×2 (20:53→21:16)
--- NOTE | 2020-03-07 21:06 | NUR ---
NOTIFIED JYOTSNA AND KIRK OF PT'S INTRACTABLE VOMITING. NEW ORDERS OBTAINED FROM KIRK AT THIS TIME.
[2020-03-07] MEDS ORDERED: METOCLOPRAMIDE INJ 10 MG/2 ML (REGLAN) IVP PRN (21:15)
[2020-03-07] MEDS: PROMETHAZINE INJ 25 MG/ML (PHENERGAN) AMP IVP PRN (21:16)
[2020-03-08 00:36] VITALS: BP 105/57
[2020-03-08] MEDS: DOCUSATE SODIUM 100 MG (COLACE) CAP PO SCH ×3 (06:20→20:25)
[2020-03-08] MEDS: polyethylene glycoL POWDER 17 GM (MIRALAX) PACK PO SCH ×4 (06:20→20:25)
[2020-03-08 07:39] VITALS: BP 105/61
[2020-03-08 08:49] LABS: BASOPHILS % (AUTO) 1 % (0-10); EOSINOPHILS # (AUTO) 0.1 10^3/uL (0.0-0.3); EOSINOPHILS % (AUTO) 2 % (0-10); HEMATOCRIT 31 % (35-52); HEMOGLOBIN 10.2 G/DL (11.5-16.0); LYMPHOCYTES # (AUTO) 1.6 X 10^3 (1.0-4.0); LYMPHOCYTES % (AUTO) 36 % (12-44); MEAN CORPUSCULAR HEMOGLOBIN 32 PG (25-34); MEAN CORPUSCULAR HGB CONC 33 G/DL (32-36); MEAN CORPUSCULAR VOLUME 98 FL (80-99); MEAN PLATELET VOLUME 9.6 FL (7.4-10.4); MONOCYTES # (AUTO) 0.9 X 10^3 (0.0-1.0); MONOCYTES % (AUTO) 22 % (0-12); NEUTROPHILS # (AUTO) 1.7 X 10^3 (1.8-7.8); NEUTROPHILS % (AUTO) 39 % (42-75); PLATELET COUNT 326 10^3/uL (130-400); RED CELL DISTRIBUTION WIDTH 16.6 % (10.0-14.5); WHITE BLOOD COUNT 4.3 10^3/uL (4.3-11.0)
[2020-03-08 09:01] LABS: BUN/CREATININE RATIO 11; CALCIUM 8.8 MG/DL (8.5-10.1); CARBON DIOXIDE 25 MMOL/L (21-32); CHLORIDE 105 MMOL/L (98-107); CREATININE SERUM 0.74 MG/DL (0.60-1.30); GFR ESTIMATED > 60; GLUCOSE 83 MG/DL (70-105); POTASSIUM 3.6 MMOL/L (3.6-5.0); SODIUM 140 MMOL/L (135-145)
--- NOTE | 2020-03-08 10:15 | NUR ---
RECEIVED REPORT FROM FORREST TRAYLOR TO ASSUME NURSING CARE. PATIENT ALERT, SITTING UP IN CHAIR, DENIES NAUSEA OR PAIN AT THIS TIME, CLEAR LIQUID DIET TAKEN AND KING WELL
--- NOTE | 2020-03-08 10:42 | Progress Note ---
Subjective Date Seen by a Provider: March 08, 2020 Time Seen by a Provider: 10:00 Subjective/Events-last exam doing better this morning. had emesis last night. tolerating liquids. has not been taking her normal laxatives that she takes at home. Objective Exam Vital Signs Date Time Temp Pulse Resp B/P (MAP) Pulse Ox O2 Delivery O2 Flow Rate FiO2 03/08/20 08:00 Room Air 03/08/20 07:39 37.0 61 18 105/61 (76) 100 Room Air 03/08/20 00:36 37.5 82 18 105/57 (73) 96 Room Air 03/07/20 21:00 Room Air 03/07/20 20:49 37.3 87 16 123/71 (88) 99 Room Air 03/07/20 16:00 36.6 90 18 121/83 (96) 98 Room Air 03/07/20 11:28 36.7 75 20 130/80 (97) 100 Room Air I & O 03/08/20 07:00 Intake Total 2720 ml Balance 2720 ml Capillary Refill : Less Than 3 SecondsLess Than 3 Seconds General Appearance: No Apparent Distress HEENT: PERRL/EOMI Neck: Full Range of Motion Respiratory: Chest Non Tender, Lungs Clear, Normal Breath Sounds Cardiovascular: Regular Rate, Rhythm Gastrointestinal: normal bowel sounds, non tender, soft Extremity: Normal Capillary Refill Neurologic/Psychiatric: Alert, Oriented x3 Skin: Normal Color Lymphatic: No Adenopathy Results Lab Laboratory Tests 03/08/20 08:30: White Blood Count 4.3, Red Blood Count 3.18L, Hemoglobin 10.2L, Hematocrit 31L, Mean Corpuscular Volume 98, Mean Corpuscular Hemoglobin 32, Mean Corpuscular Hemoglobin Concent 33, Red Cell Distribution Width 16.6H, Platelet Count 326, Mean Platelet Volume 9.6, Neutrophils (%) (Auto) 39L, Lymphocytes (%) (Auto) 36, Monocytes (%) (Auto) 22H, Eosinophils (%) (Auto) 2, Basophils (%) (Auto) 1, Ne utrophils # (Auto) 1.7L, Lymphocytes # (Auto) 1.6, Monocytes # (Auto) 0.9, Eosinophils # (Auto) 0.1, Basophils # (Auto) 0.0, Sodium Level 140, Potassium Level 3.6, Chloride Level 105, Carbon Dioxide Level 25, Anion Gap 10, Blood Urea Nitrogen 8, Creatinine 0.74, Estimat Glomerular Filtration Rate > 60, BUN/Creatinine Ratio 11, Glucose Level 83, Calcium Level 8.8 Assessment/Plan Assessment/Plan Assess & Plan/Chief Complaint ileus, constipation with hx metastatic ovarian ca. start miralax scheduled BID. ambulate. slowly advance diet when develops more bowel function. Clinical Quality Measures DVT/VTE Risk/Contraindication: Risk Factor Score Per Nursin RFS Level Per Nursing on Admit: 4+=Very High UABREY BRADLEY MD March 08, 2020 10:42
--- NOTE | 2020-03-08 12:50 | Progress Note ---
Standard Progress Note Progress Notes/Assess & Plan Date Seen by a Provider: March 08, 2020 Time Seen by a Provider: 12:46 Progress/Assessment & Plan 59-year-old female with recurrent ovarian cancer and on palliative chemotherapy admitted to the hospital with intractable nausea and vomiting. Admission CT scan showed ileus versus small bowel obstruction. Patient had a bowel movement with enema at the time of admission but since then has not had any bowel movement and is not passing flatus. Had nausea and vomiting last night but none today. Took clear liquids for breakfast. Restarted on laxatives. Very hypoactive bowel sounds. Continue bowel rest and advance diet very cautiously. Continue conservative management. Will follow patient with you. BEATRICE LUO March 08, 2020 12:50
--- NOTE | 2020-03-08 13:52 | NUR ---
"RD ASSESSMENT PMHx: CA(metastatic ovarian) PT INTERACTION: Pt was awake and pleasant during nutrition assessment. Pt states current appetite is fair, but has not been good for the last 1-2weeks. Note avg PO intake of 63% x2meal, per chart review. Pt states following a regular diet at home, and has no issues with chewing/swallowing food. Pt states recent issues of nausea and vomiting for the past 2 weeks. Note 3 episodes of emesis on 03/07, and pt currently on zofran PRN, per chart review. Pt states some recent issues with constipation. Note last BM was 03/06, and pt currently on bowel regimen of colace BID; and miralax qd, per chart review. Pt states no recent wt changes. Note unable to determine recent wt hx, per chart review. ABNORMAL NUTRITION-RELATED LAB VALUES LOW: Pro 5.7 HIGH: Est. kcal needs: 0459-6731 kcal | 25-30 kcal/kg Est. Pro needs: 58-69 g Pro | 1.0-1.2 g Pro/kg PES STATEMENT: Inadequate oral intake (NI-2.1) related to loss of appetite | nausea | vomiting | constipation as evidenced by pt interview | avg PO intake 63% x2meal INTERVENTION: Continue with current diet order of Clear Liquid diet. Would recommend diet advancement when medically able and as tolerated. Pt may benefit from nutrition supplementation if PO intake declines. Will continue to follow and reassess as pt needs, intake, and status change. MONITOR/EVALUATE: PO Intake; Plan of Care; Hydration Status; Weight Status; Lab Values Velvet Giles, MS, RD, LD"
--- NOTE | 2020-03-08 14:00 | NUR ---
Report from Karly TRAYLOR, will assume care of patient at this time.
--- NOTE | 2020-03-08 14:22 | Progress Note - Hospitalist ---
Subjective HPI/CC On Admission Date Seen by Provider: March 08, 2020 Time Seen by Provider: 13:00 Lou Sandoval is a 59-year-old female with past medical history of metastatic ovarian cancer currently on chemotherapy following with Dr. Boothe who presented with abdominal pain. She also had associated nausea and vomiting. She has been having bowel movements. Upon my examination she is passing gas this morning. She denies any fevers or chills. She denies any chest pain or palpitations. She denies any shortness of breath or cough. She denies any dysuria. She has no other complaints or concerns. Subjective/Events-last exam She had some nausea and vomiting overnight. She had some abdominal pain associated with this. She says that it started after she had dinner. He has not had any nausea or vomiting since. She has had clear liquids today without issue. She has not had any bowel movements over the past day. She is passing gas but only minimally. She denies any fevers or chills. She denies any chest pain or shortness of breath. Objective Exam Vital Signs Vital Signs Date Time Temp Pulse Resp B/P (MAP) Pulse Ox O2 Delivery O2 Flow Rate FiO2 03/08/20 10:53 Room Air 96.00 03/08/20 07:39 37.0 61 18 105/61 (76) 100 Capillary Refill : Less Than 3 SecondsLess Than 3 Seconds General Appearance: No Apparent Distress, WD/WN Neck: Normal Inspection, Supple Respiratory: Lungs Clear, Normal Breath Sounds, No Respiratory Distress Cardiovascular: Regular Rate, Rhythm, No Edema, No Murmur Gastrointestinal: Normal Bowel Sounds, Soft, Tenderness Extremity: Normal Inspection, Non Tender, No Pedal Edema Neurologic/Psychiatric: Alert, Oriented x3, No Motor/Sensory Deficits, Normal Mood/Affect Skin: Normal Color, Warm/Dry Results/Procedures Lab Laboratory Tests 03/08/20 08:30 Patient resulted labs reviewed. Imaging: Reviewed Imaging Report Assessment/Plan Assessment and Plan Assess & Plan/Chief Complaint Ileus CT abdomen consistent with ileus Gen. surgery consulted, appreciate assistance continue IV fluids Clear liquids, advance as tolerated Pain regimen ordered Antiemetics ordered Metastatic ovarian cancer CT appeared to show progression of carcinomatosis Oncology consulted, appreciate assistance DVT prophylaxis: Lovenox Diagnosis/Problems Diagnosis/Problems (1) Ileus Status: Acute (2) Ovarian cancer Status: Acute Qualifiers: Laterality: unspecified laterality Qualified Codes: C56.9 - Malignant neoplasm of unspecified ovary (3) Peritoneal carcinomatosis Status: Acute Clinical Quality Measures DVT/VTE Risk/Contraindication: Risk Factor Score Per Nursin RFS Level Per Nursing on Admit: 4+=Very High THOMAS WATKINS MD March 08, 2020 14:22
--- NOTE | 2020-03-08 15:03 | Diagnostic Imaging Report ---
EXAMINATION: Abdomen two views. INDICATION: Ovarian cancer, increased constipation. FINDINGS: The CT abdomen/pelvis exam performed on 03/06/2020 noted a few dilated gas and fluid-filled segments of small bowel. These were felt to be related to a postoperative ileus. On this exam, there are still several prominent air-fluid levels present. There is also an air-fluid level in the stomach. This appearance is most likely related to a slowly resolving ileus; however, if there is clinical concern regarding a partial or intermittent small bowel obstruction, then small bowel follow-through exam would be recommended. The surgical sutures and the surgical clips seen previously are again evident and no different. There is no mass or organomegaly or pathological calcification evident. The osseous structures are intact. IMPRESSION: There are persistent dilated gas and fluid-filled segments of small bowel with multiple air-fluid levels. Considerations and recommendations as above. Dictated by: Dictated on workstation # [id number]
[2020-03-08 15:45] VITALS: BP 115/55
[2020-03-08] MEDS: ENOXAPARIN 40 MG/0.4 ML (LOVENOX) SYR SQ SCH (18:12)
[2020-03-09 00:35] VITALS: BP 103/63
[2020-03-09 08:07] VITALS: BP 110/72
[2020-03-09] MEDS: polyethylene glycoL POWDER 17 GM (MIRALAX) PACK PO SCH ×2 (09:03→20:14)
[2020-03-09] MEDS: DOCUSATE SODIUM 100 MG (COLACE) CAP PO SCH ×2 (09:03→20:14)
--- NOTE | 2020-03-09 09:59 | Progress Note ---
Standard Progress Note Progress Notes/Assess & Plan Date Seen by a Provider: March 09, 2020 Time Seen by a Provider: 09:56 Progress/Assessment & Plan 59-year-old female with recurrent ovarian cancer and on palliative chemotherapy admitted to the hospital with intractable nausea and vomiting. Admission CT scan showed ileus versus small bowel obstruction. Patient had 2 bowel movements last night. Tolerating clear liquids without nausea or vomitting. Restarted on laxatives. Bowel sounds better. Continue to advance diet very cautiously. Abdominal films from yesterday with air-fluid levels c/w partial or intermittent SBO. Will follow patient with you. BEATRICE LUO March 09, 2020 09:59
--- NOTE | 2020-03-09 11:04 | Progress Note - Hospitalist ---
Subjective HPI/CC On Admission Date Seen by Provider: March 09, 2020 Time Seen by Provider: 10:25 Lou Sandoval is a 59-year-old female with past medical history of metastatic ovarian cancer currently on chemotherapy following with Dr. Boothe who presented with abdominal pain. She also had associated nausea and vomiting. She has been having bowel movements. Upon my examination she is passing gas this morning. She denies any fevers or chills. She denies any chest pain or palpitations. She denies any shortness of breath or cough. She denies any dysuria. She has no other complaints or concerns. Subjective/Events-last exam She reports tolerating her clear liquids yesterday without any nausea or vomiting. She denies any worsening abdominal pain. She had a bowel movement today. She has been up and walking in the halls. She denies any fevers or chills. She denies any chest pain or shortness of breath. Objective Exam Vital Signs Vital Signs Date Time Temp Pulse Resp B/P (MAP) Pulse Ox O2 Delivery O2 Flow Rate FiO2 03/09/20 08:07 36.6 68 18 110/72 (85) 99 Room Air 03/08/20 10:53 96.00 Capillary Refill : Less Than 3 SecondsLess Than 3 Seconds General Appearance: No Apparent Distress, WD/WN HEENT: PERRL/EOMI, Pharynx Normal Neck: Normal Inspection, Supple Respiratory: Lungs Clear, Normal Breath Sounds, No Respiratory Distress Cardiovascular: Regular Rate, Rhythm, No Edema, No Murmur Gastrointestinal: Normal Bowel Sounds, Non Tender, Soft Extremity: Normal Inspection, Non Tender, No Pedal Edema Neurologic/Psychiatric: Alert, Oriented x3, No Motor/Sensory Deficits, Normal Mood/Affect Skin: Normal Color, Warm/Dry Results/Procedures Lab Patient resulted labs reviewed. Imaging: Reviewed Imaging Report Assessment/Plan Assessment and Plan Assess & Plan/Chief Complaint Ileus CT abdomen 03/06 consistent with ileus Abdominal x-ray 03/08 with likely slowly resolving ileus Gen. surgery consulted, appreciate assistance Advance to dysphagia diet Pain regimen ordered Antiemetics ordered Continue ambulation Metastatic ovarian cancer CT appeared to show progression of carcinomatosis Oncology consulted, appreciate assistance DVT prophylaxis: Lovenox Diagnosis/Problems Diagnosis/Problems (1) Ileus Status: Acute (2) Ovarian cancer Status: Acute Qualifiers: Laterality: unspecified laterality Qualified Codes: C56.9 - Malignant neoplasm of unspecified ovary (3) Peritoneal carcinomatosis Status: Acute Clinical Quality Measures DVT/VTE Risk/Contraindication: Risk Factor Score Per Nursin RFS Level Per Nursing on Admit: 4+=Very High THOMAS WATKINS MD March 09, 2020 11:04
--- NOTE | 2020-03-09 15:52 | Progress Note - Surgery ---
Subjective Date Seen by a Provider: March 09, 2020 Time Seen by a Provider: 11:16 Subjective/Events-last exam Patient feeling better. She's passing flatus and had a bowel movement today. She's tolerating clear liquids. She denies any nausea vomiting fever sweats chills shortness of breath or chest pain at this time. Objective Exam Vital Signs Date Time Temp Pulse Resp B/P (MAP) Pulse Ox O2 Delivery O2 Flow Rate FiO2 03/09/20 08:07 36.6 68 18 110/72 (85) 99 Room Air 03/09/20 08:00 Room Air 03/09/20 00:35 37.0 67 18 103/63 (76) 98 Room Air 03/08/20 20:25 Room Air I & O 03/09/20 07:00 Intake Total 2009 ml Balance 2009 ml Capillary Refill : Less Than 3 SecondsLess Than 3 Seconds General Appearance: No Apparent Distress, WD/WN HEENT: PERRL/EOMI, Pharynx Normal Neck: Normal Inspection, Supple Respiratory: Chest Non Tender, No Accessory Muscle Use, No Respiratory Distress Cardiovascular: Regular Rate, Rhythm, No Edema Gastrointestinal: normal bowel sounds, non tender, soft Extremity: Normal Inspection, Non Tender, No Pedal Edema Neurologic/Psychiatric: Alert, Oriented x3, No Motor/Sensory Deficits, Normal Mood/Affect Skin: Normal Color, Warm/Dry Lymphatic: No Adenopathy Assessment/Plan Assessment/Plan Assessment/Plan ileus, constipation with hx metastatic ovarian ca. miralax scheduled BID. ambulate. Tolerating clear liquids and having bowel function, advanced to dysphagia 2 diet . Clinical Quality Measures DVT/VTE Risk/Contraindication: Risk Factor Score Per Nursin RFS Level Per Nursing on Admit: 4+=Very High SOLE HOUGH DO March 09, 2020 15:52
[2020-03-09 16:46] VITALS: BP 156/93
[2020-03-09] MEDS: ONDANSETRON 4 MG/2 ML (SDV) Z0FRAN IV PRN (17:43)
[2020-03-09] MEDS: fentaNYL INJECTION 100 MCG/2 ML AMP IV PRN (17:43)
[2020-03-09] MEDS: ENOXAPARIN 40 MG/0.4 ML (LOVENOX) SYR SQ SCH (18:48)
[2020-03-10 00:20] VITALS: BP 152/84
[2020-03-10] MEDS: ONDANSETRON 4 MG/2 ML (SDV) Z0FRAN IV PRN ×2 (00:57→19:19)
[2020-03-10] MEDS: PROMETHAZINE INJ 25 MG/ML (PHENERGAN) AMP IVP PRN (02:29)
[2020-03-10 08:00] VITALS: BP 104/72
[2020-03-10] MEDS: DOCUSATE SODIUM 100 MG (COLACE) CAP PO SCH ×2 (08:57→21:25)
[2020-03-10] MEDS: polyethylene glycoL POWDER 17 GM (MIRALAX) PACK PO SCH ×2 (08:57→21:25)
[2020-03-10 09:30] LABS: CHLORIDE 102 MMOL/L (98-107); POTASSIUM 3.8 MMOL/L (3.6-5.0); SODIUM 140 MMOL/L (135-145)
[2020-03-10 09:31] LABS: GLUCOSE 86 MG/DL (70-105)
[2020-03-10 09:33] LABS: CARBON DIOXIDE 28 MMOL/L (21-32)
[2020-03-10 09:35] LABS: CREATININE SERUM 0.76 MG/DL (0.60-1.30); GFR ESTIMATED > 60
[2020-03-10 09:36] LABS: BUN/CREATININE RATIO 8
--- NOTE | 2020-03-10 09:59 | NUR ---
DR LUO ORDERED CLEAR LIQUID DIET FOR PT AND SAID SHE MAY HAVE MASHED POTATOES OR JELLO WELL. HE ALSO ORDERED ENSURE CLEAR WITH MEALS BUT TO USE FOR SNACK BETWEEN MEALS WELL. HE DOES WANT HER TO HAVE 6 SMALL MEALS DAILY.
--- NOTE | 2020-03-10 11:00 | NUR ---
DR LUO AND DR WATKINS ORDERED THAT PT COULD SIT OUTSIDE FACILITY WITH FAMILY TODAY. PT WILL HAVE TO WEAR A MASK AND BE ESCORTED DOWN TO ER EXIT WITH STAFF. PT REPORTED TO THIS RN THAT SHE WOULD TELL RN WHEN FAMILY WAS DOWNSTAIRS.
--- NOTE | 2020-03-10 11:12 | Progress Note ---
Standard Progress Note Progress Notes/Assess & Plan Date Seen by a Provider: March 10, 2020 Time Seen by a Provider: 11:08 Progress/Assessment & Plan 59-year-old female with recurrent ovarian cancer and on palliative chemotherapy admitted to the hospital with intractable nausea and vomiting. Admission CT scan showed ileus versus small bowel obstruction. Patient tried pureed diet yesterday but did not tolerate this. She had nausea and abdominal cramps last night but no vomitting. Had a bowel movement this morning. Continuing on laxatives. Bowel sounds better. Advised to continue clear liquids and soft foods. Will add nutritional supplements. May go to hospital entrance and meet family daily. Will follow patient with you. BEATRICE LUO March 10, 2020 11:12
--- NOTE | 2020-03-10 14:04 | Progress Note - Hospitalist ---
Subjective HPI/CC On Admission Date Seen by Provider: March 10, 2020 Time Seen by Provider: 10:40 Lou Sandoval is a 59-year-old female with past medical history of metastatic ovarian cancer currently on chemotherapy following with Dr. Boothe who presented with abdominal pain. She also had associated nausea and vomiting. She has been having bowel movements. Upon my examination she is passing gas this morning. She denies any fevers or chills. She denies any chest pain or palpitations. She denies any shortness of breath or cough. She denies any dysuria. She has no other complaints or concerns. Subjective/Events-last exam she reports having some nausea and vomiting last night. She reports that she had an upset stomach when she went to bed. She denies any fevers or chills. She denies any chest pain or shortness of breath. She denies any abdominal pain. She did have a bowel movement this morning. Objective Exam Vital Signs Vital Signs Date Time Temp Pulse Resp B/P (MAP) Pulse Ox O2 Delivery O2 Flow Rate FiO2 03/10/20 08:00 36.6 80 18 104/72 (83) 99 Room Air 03/08/20 10:53 96.00 Capillary Refill : Less Than 3 SecondsLess Than 3 Seconds General Appearance: No Apparent Distress, WD/WN Respiratory: Lungs Clear, Normal Breath Sounds, No Respiratory Distress Cardiovascular: Regular Rate, Rhythm, No Edema, No Murmur Gastrointestinal: Normal Bowel Sounds, Soft, Tenderness Extremity: Normal Inspection, Non Tender, No Pedal Edema Neurologic/Psychiatric: Alert, Oriented x3, No Motor/Sensory Deficits, Normal Mood/Affect Skin: Normal Color, Warm/Dry Results/Procedures Lab Laboratory Tests 03/10/20 09:05 Patient resulted labs reviewed. Imaging: Reviewed Imaging Report Assessment/Plan Assessment and Plan Assess & Plan/Chief Complaint Ileus CT abdomen 03/06 consistent with ileus Abdominal x-ray 03/08 with likely slowly resolving ileus Gen. surgery consulted, appreciate assistance Continue soft diet Pain regimen ordered Antiemetics ordered Continue ambulation Metastatic ovarian cancer CT appeared to show progression of carcinomatosis Oncology consulted, appreciate assistance DVT prophylaxis: Lovenox Diagnosis/Problems Diagnosis/Problems (1) Ileus Status: Acute (2) Ovarian cancer Status: Acute Qualifiers: Laterality: unspecified laterality Qualified Codes: C56.9 - Malignant neoplasm of unspecified ovary (3) Peritoneal carcinomatosis Status: Acute Clinical Quality Measures DVT/VTE Risk/Contraindication: Risk Factor Score Per Nursin RFS Level Per Nursing on Admit: 4+=Very High THOMAS WATKINS MD March 10, 2020 14:04
--- NOTE | 2020-03-10 15:34 | Progress Note - Surgery ---
Subjective Date Seen by a Provider: March 10, 2020 Time Seen by a Provider: 11:28 Subjective/Events-last exam Patient more bloated, slight abdominal discomfort. Feels she ate too much. Slight nausea, no emesis. Denies fever sweats chills shortness of breath or chest pain. Objective Exam Vital Signs Date Time Temp Pulse Resp B/P (MAP) Pulse Ox O2 Delivery O2 Flow Rate FiO2 03/10/20 08:00 36.6 80 18 104/72 (83) 99 Room Air 03/10/20 08:00 Room Air 03/10/20 00:20 36.6 78 16 152/84 (106) 94 Room Air 03/09/20 20:10 Room Air 03/09/20 16:46 36.8 73 18 156/93 (114) 99 Room Air I & O 03/10/20 07:00 Intake Total 1828 ml Output Total 900 ml Balance 928 ml Capillary Refill : Less Than 3 SecondsLess Than 3 Seconds General Appearance: No Apparent Distress, WD/WN HEENT: PERRL/EOMI, Normal ENT Inspection Neck: Normal Inspection, Supple Respiratory: Lungs Clear, Normal Breath Sounds, No Respiratory Distress Cardiovascular: Regular Rate, Rhythm, No Edema, No Murmur Gastrointestinal: normal bowel sounds, non tender, soft, distended (slight) Extremity: Normal Inspection, Non Tender, No Pedal Edema Neurologic/Psychiatric: Alert, Oriented x3, No Motor/Sensory Deficits, Normal Mood/Affect Skin: Normal Color, Warm/Dry Lymphatic: No Adenopathy Results Lab Laboratory Tests 03/10/20 09:05: Sodium Level 140, Potassium Level 3.8, Chloride Level 102, Carbon Dioxide Level 28, Anion Gap 10, Blood Urea Nitrogen 6L, Creatinine 0.76, Estimat Glomerular Filtration Rate > 60, BUN/Creatinine Ratio 8, Glucose Level 86, Calcium Level 9.0, Magnesium Level 2.0 Assessment/Plan Assessment/Plan Assessment/Plan ileus, constipation with hx metastatic ovarian ca. miralax scheduled BID. ambulate. Back to clear liquids since more uncomfortable no surgical intervention . Clinical Quality Measures DVT/VTE Risk/Contraindication: Risk Factor Score Per Nursin RFS Level Per Nursing on Admit: 4+=Very High SOLE HOUGH DO March 10, 2020 15:34
[2020-03-10 16:28] VITALS: BP 128/71
--- NOTE | 2020-03-10 19:12 | NUR ---
PT WAS ESCORTED VIA W/C WITH MASK TO ER AND SAT OUTSIDE OF ER DOORS WITH AND CHILDREN PER DR WATKINS AND PUJA ALEXIS. SHE LEFT AT APPROX [phone]. PT TOLERATED WELL AND WAS VERY HAPPY TO SEE FAMILY.
[2020-03-10] MEDS: ENOXAPARIN 40 MG/0.4 ML (LOVENOX) SYR SQ SCH (19:19)
[2020-03-11 00:35] VITALS: BP 106/61
[2020-03-11 08:00] VITALS: BP 101/65
[2020-03-11] MEDS: DOCUSATE SODIUM 100 MG (COLACE) CAP PO SCH ×2 (08:39→20:41)
[2020-03-11] MEDS: polyethylene glycoL POWDER 17 GM (MIRALAX) PACK PO SCH ×2 (08:39→20:41)
--- NOTE | 2020-03-11 11:05 | NUR ---
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 She has a daughter that graduated this year with her nursing degree and is working for the ER at [employer]. Her youngest daughter is graduating from a [employer] high school and is also interested in a nursing career. Pt talks openly about the difficulty in coping with her cancer diagnosis. will follow and assist.
--- NOTE | 2020-03-11 12:06 | Progress Note - Hospitalist ---
Subjective HPI/CC On Admission Date Seen by Provider: March 11, 2020 Time Seen by Provider: 12:02 Lou Sandoval is a 59-year-old female with past medical history of metastatic ovarian cancer currently on chemotherapy following with Dr. Boothe who presented with abdominal pain. She also had associated nausea and vomiting. She has been having bowel movements. Upon my examination she is passing gas this morning. She denies any fevers or chills. She denies any chest pain or palpitations. She denies any shortness of breath or cough. She denies any dysuria. She has no other complaints or concerns. Subjective/Events-last exam Pt reports feeling bloated today. No new complaints. Had a BM. No pain. Vomited last night but did well with breakfast. Objective Exam Vital Signs Vital Signs Date Time Temp Pulse Resp B/P (MAP) Pulse Ox O2 Delivery O2 Flow Rate FiO2 03/11/20 08:00 Room Air 03/11/20 08:00 36.7 75 16 101/65 (77) 100 03/08/20 10:53 96.00 Capillary Refill : Less Than 3 SecondsLess Than 3 Seconds General Appearance: No Apparent Distress, WD/WN Respiratory: Lungs Clear, No Respiratory Distress Cardiovascular: Regular Rate, Rhythm, No Murmur Gastrointestinal: Non Tender, Soft Neurologic/Psychiatric: Alert, Oriented x3 Results/Procedures Lab Patient resulted labs reviewed. Imaging: Reviewed Imaging Report Assessment/Plan Assessment and Plan Assess & Plan/Chief Complaint Ileus CT abdomen 03/06 consistent with ileus Abdominal x-ray 03/08 with likely slowly resolving ileus Gen. surgery consulted, appreciate assistance Advance to soft diet Pain regimen ordered Antiemetics ordered Continue ambulation Metastatic ovarian cancer CT appeared to show progression of carcinomatosis Oncology consulted, appreciate assistance DVT prophylaxis: Lovenox Clinical Quality Measures DVT/VTE Risk/Contraindication: Risk Factor Score Per Nursin RFS Level Per Nursing on Admit: 4+=Very High JACKIE WHITLOCK MD March 11, 2020 12:06
--- NOTE | 2020-03-11 13:29 | NUR ---
"RD ASSESSMENT PMHx: CA(metastatic ovarian) PT INTERACTION: Pt was awake and pleasant during nutrition follow-up. Pt states she has been eating fair since last assessment. Note avg PO intake <25% x2d, per chart review. Pt states issues with nausea and vomiting since last assessment. Note 2 episodes of emesis on 03/10, per chart review. Pt states no issues with constipation or diarrhea. Note last BM was 03/10 and pt currently on bowel regimen of colace BID; and miralax BID, per chart review. Pt states not tolerating the nutrition supplementation of Ensure Clear, saying that they are too sweet for her. ABNORMAL NUTRITION-RELATED LAB VALUES LOW: BUN 6 HIGH: Est. kcal needs: 4263-9874 kcal | 25-30 kcal/kg Est. Pro needs: 58-69 g Pro | 1.0-1.2 g Pro/kg PES STATEMENT: Inadequate oral intake (NI-2.1) related to loss of appetite | nausea | vomiting as evidenced by pt interview | chart review | avg PO intake <25% x2d INTERVENTION: Continue with current diet order of DYS2 Mechanically Altered diet. Would recommend switching current supplementation order from Ensure Clear (vary) with meals TID, to Ensure Enlive (vary) with meals TID for pt tolerance. Ensure Enlive provides 350 kcal and 13 g Pro per serving. Pt may tolerate this supplement better than Ensure Clear. Will continue to follow and reassess as pt needs, intake, and status change. MONITOR/EVALUATE: PO Intake; Plan of Care; Hydration Status; Weight Status; Lab Values Velvet Giles, MS, RD, LD"
--- NOTE | 2020-03-11 14:45 | NUR ---
Pastoral care visit.
[2020-03-11 16:00] VITALS: BP 127/79
[2020-03-11] MEDS ORDERED: PANTOPRAZOLE 40 MG (PROTONIX) TAB PO ONE (17:50)
[2020-03-11] MEDS: PANTOPRAZOLE 40 MG (PROTONIX) TAB PO SCH (17:59)
[2020-03-11] MEDS: ENOXAPARIN 40 MG/0.4 ML (LOVENOX) SYR SQ SCH (18:00)
--- NOTE | 2020-03-11 18:03 | Progress Note ---
Standard Progress Note Progress Notes/Assess & Plan Date Seen by a Provider: March 11, 2020 Time Seen by a Provider: 17:58 Progress/Assessment & Plan 59-year-old female with recurrent ovarian cancer and on palliative chemotherapy admitted to the hospital with intractable nausea and vomiting. Admission CT scan showed ileus versus small bowel obstruction. Patient was on clear liquid diet yesterday and is on mechanical soft today. She had 1 episode of vomiting last evening which was mostly clear liquids. Had a bowel movement which was diarrhea. Continuing on laxatives. Bowel sounds present. Advised to continue diet as tolerated. Will add PPI as patient was taking omeprazole or pepcid at home. Once the vomiting is under control and patient can take adequate calories and fluids, will plan discharge and reevaluate for chemotherapy. Will follow patient with you. BEATRICE LUO March 11, 2020 18:03
[2020-03-11 23:49] VITALS: BP 122/73
[2020-03-12 08:50] VITALS: BP 132/85
[2020-03-12] MEDS: DOCUSATE SODIUM 100 MG (COLACE) CAP PO SCH (09:22)
[2020-03-12] MEDS: PANTOPRAZOLE 40 MG (PROTONIX) TAB PO SCH (09:22)
[2020-03-12] MEDS: polyethylene glycoL POWDER 17 GM (MIRALAX) PACK PO SCH (09:22)
--- NOTE | 2020-03-12 12:41 | Discharge Summary ---
Diagnosis/Chief Complaint Date of Admission March 06, 2020 at 16:11 Date of Discharge Admission Diagnosis Ileus Primary Care Sixto Leos DO Discharge Diagnosis (1) Ileus Status: Acute (2) Ovarian cancer Status: Acute (3) Peritoneal carcinomatosis Status: Acute Discharge Summary Discharge Physical Exam Allergies: Coded Allergies: No Allergy Information Available (Unverified , 11/09/18) Vitals & I&Os Vital Signs Date Time Temp Pulse Resp B/P (MAP) Pulse Ox O2 Delivery O2 Flow Rate FiO2 03/12/20 08:50 36.6 80 16 132/85 (101) 98 Room Air 03/08/20 10:53 96.00 General Appearance: No Apparent Distress, WD/WN Respiratory: No Accessory Muscle Use, No Respiratory Distress Gastrointestinal: Normal Bowel Sounds, Soft Neurologic/Psychiatric: Alert, Oriented x3 Hospital Course Pt is a 59yoCF with a H metastatic ovarian cancer who was admitted due to an ileus. She progressed slowly but was able to tolerate a liquid diet and supplement her nutrition with Ensure. She was having bowel movements and passing gas on discharge. She is to continue this at home. She is to follow up with Dr Boothe regarding progression of her disease. She is to continue on Miralax and Colace at home to help with soft bowel movements. Labs (last 24 hrs) Patient resulted labs reviewed. Imaging: Reviewed Imaging Report Discussion & Recommendations Discharge Planning: >30 minutes discharge planning Discharge Home Medications: Active Scripts Active Reported Tylenol Extra Strength (Acetaminophen) 500 Mg Tablet 500-1,000 Mg PO Q8H PRN Docusate Sodium 250 Mg Capsule 250 Mg PO HS Miralax (Polyethylene Glycol 3350) 17 Gm Powd.pack 17 Gm PO DAILY Pepcid AC (Famotidine) 10 Mg Tablet 10 Mg PO DAILY Venlafaxine HCl ER (Venlafaxine HCl) 75 Mg Cap.er.24h 75 Mg PO DAILY Instructions to patient/family Please see electronic discharge instructions given to patient. Clinical Quality Measures DVT/VTE Risk/Contraindication: Risk Factor Score Per Nursin RFS Level Per Nursing on Admit: 4+=Very High Problem Qualifiers (1) Ovarian cancer: Laterality: unspecified laterality Qualified Codes: C56.9 - Malignant neoplasm of unspecified ovary JACKIE WHITLOCK MD March 12, 2020 12:41
[2020-03-12] MEDS ORDERED: PANT40TA3 PO (12:48)
[2020-03-12] MEDS ORDERED: POLY17PO6 PO (12:48)
[2020-03-12] MEDS ORDERED: DCS100C PO (12:48)
[2020-03-12] MEDS ORDERED: ONDA4TAB11 PO (12:48)
--- NOTE | 2020-03-12 12:50 | Discharge Inst-Simple/Standard ---
Discharge Inst-Standard Reconcile Patient Problems Problems Reviewed?: Yes Patient Instructions/Follow Up Plan of Care/Instructions/FU: Please continue to take your medications as written. Please follow up with Dr Boothe as scheduled and Dr Leos. Activity as Tolerated: Yes Discharge Diet: Eat Small Frequent Meals, Soft Diet Return to The Hospital For: Abdominal pain, distention, nausea that does not improve with medications, inability to keep anything down orally, or if you do not pass gas or have a bowel movement for over 24 hours. JACKIE WHITLOCK MD March 12, 2020 12:50
--- NOTE | 2020-03-12 12:51 | Discharge Summary ---
Diagnosis/Chief Complaint Date of Admission March 06, 2020 at 16:11 Date of Discharge Discharge Date: March 12, 2020 Admission Diagnosis Ileus Primary Care Sixto Leos DO Discharge Diagnosis (1) Ileus Status: Acute (2) Ovarian cancer Status: Acute (3) Peritoneal carcinomatosis Status: Acute Discharge Summary Discharge Physical Exam Allergies: Coded Allergies: No Allergy Information Available (Unverified , 11/09/18) Vitals & I&Os Vital Signs Date Time Temp Pulse Resp B/P (MAP) Pulse Ox O2 Delivery O2 Flow Rate FiO2 03/12/20 08:50 36.6 80 16 132/85 (101) 98 Room Air 03/08/20 10:53 96.00 Hospital Course Labs (last 24 hrs) Patient resulted labs reviewed. Imaging: Reviewed Imaging Report Discussion & Recommendations Discharge Planning: >30 minutes discharge planning Discharge Home Medications: Active Scripts Active Dok (Docusate Sodium) 100 Mg Capsule 100 Mg PO BID Ondansetron Odt (Ondansetron) 4 Mg Tab.rapdis 4 Mg PO Q6H PRN Pantoprazole Sodium 40 Mg Tablet.dr 40 Mg PO DAILY Miralax (Polyethylene Glycol 3350) 17 Gm Powd.pack 17 Gm PO BID Reported Tylenol Extra Strength (Acetaminophen) 500 Mg Tablet 500-1,000 Mg PO Q8H PRN Docusate Sodium 250 Mg Capsule 250 Mg PO HS Pepcid AC (Famotidine) 10 Mg Tablet 10 Mg PO DAILY Venlafaxine HCl ER (Venlafaxine HCl) 75 Mg Cap.er.24h 75 Mg PO DAILY Instructions to patient/family Please see electronic discharge instructions given to patient. Clinical Quality Measures DVT/VTE Risk/Contraindication: Risk Factor Score Per Nursin RFS Level Per Nursing on Admit: 4+=Very High Problem Qualifiers (1) Ovarian cancer: Laterality: unspecified laterality Qualified Codes: C56.9 - Malignant neoplasm of unspecified ovary JACKIE WHITLOCK MD March 12, 2020 12:51
[2020-03-12 18:13] VITALS: BP 132/85
== END 2020-03-12 18:12 | disposition home or self-care (01) | DRG 389 ==
LOC: EDUNIT# 13:41 → ER 13:42 → 4TH 16:11
PROVIDERS: ADMIT Internal Medicine; ATTEND Internal Medicine
DX: K56.7 Ileus, unspecified (principal); C78.6 Secondary malignant neoplasm of retroperitoneum and peritoneum; K59.00 Constipation, unspecified; Z85.43 Personal history of malignant neoplasm of ovary; Z85.3 Personal history of malignant neoplasm of breast; Z92.21 Personal history of antineoplastic chemotherapy; Z90.12 Acquired absence of left breast and nipple; Z90.11 Acquired absence of right breast and nipple; Z92.3 Personal history of irradiation; Z90.722 Acquired absence of ovaries, bilateral; Z90.710 Acquired absence of both cervix and uterus
CPT/HCPCS: 36415; 74019; 74177; 80048; 80053; 81000; 83690; 83735; 85007; 85025; 85027; 96361; 96374

== ENCOUNTER → 2020-03-19 | Outpatient (CLI) | payer OTHER ==
[~2020-03-19] MED LIST changes: +ACET-2267 PO; -BEVACIZUMAB IV SCH; +DCS100C PO; +DOCU250C11 PO; +FAMO10TA43 PO; -NS IV 1000 ML (CANCER CTR) IV SCH; -NS IV SCH; +ONDA4TAB11 PO; -PALONOSETRON HCL 0.25 MG, DEXAMETHASONE INJ (CANCER CTR) 4 MG in NS (IVPB) CANCER CENTE... IV SCH; +PANT40TA3 PO; +POLY17PO6 PO; -TOPOTECAN HCL IV SCH; +VENL75CA93 PO
== END ==
LOC: ONC 12:45
PROVIDERS: ATTEND Internal Medicine Hematology & Oncology
DX: C56.1 Malignant neoplasm of right ovary (principal); C78.6 Secondary malignant neoplasm of retroperitoneum and peritoneum; Z90.710 Acquired absence of both cervix and uterus; Z90.722 Acquired absence of ovaries, bilateral; Z90.49 Acquired absence of other specified parts of digestive tract; Z90.81 Acquired absence of spleen; Z93.2 Ileostomy status; Z90.89 Acquired absence of other organs; Z90.13 Acquired absence of bilateral breasts and nipples; Z85.3 Personal history of malignant neoplasm of breast; Z79.899 Other long term (current) drug therapy

== ENCOUNTER → 2020-03-19 | Outpatient (CLI) | payer OTHER ==
[~2020-03-19] MED LIST changes: +BARIUM SUSPENSION 2.1% (VANILLA SILQ) 450 ML PO ONE; +CATHETER FLUSH 10 ML SYR IV PRN; +HOLD METFORMIN - RECEIVED CONTRAST 20 ML VIAL IV SCH; +IOHEXOL 350 MG/ML 100 ML (OMNIPAQUE 350) VIAL IV ONE; +NS 100 ML (IVPB) BAG IV ONE
[2020-03-19 11:16] LABS: BASOPHILS % (AUTO) 0 % (0-10); EOSINOPHILS # (AUTO) 0.1 10^3/uL (0.0-0.3); EOSINOPHILS % (AUTO) 1 % (0-10); HEMATOCRIT 36 % (35-52); LYMPHOCYTES % (AUTO) 12 % (12-44); MEAN CORPUSCULAR HEMOGLOBIN 33 PG (25-34); MEAN CORPUSCULAR HGB CONC 33 G/DL (32-36); MEAN CORPUSCULAR VOLUME 98 FL (80-99); MEAN PLATELET VOLUME 9.3 FL (7.4-10.4); MONOCYTES # (AUTO) 1.2 X 10^3 (0.0-1.0); MONOCYTES % (AUTO) 15 % (0-12); NEUTROPHILS # (AUTO) 5.8 X 10^3 (1.8-7.8); NEUTROPHILS % (AUTO) 72 % (42-75); PLATELET COUNT 685 10^3/uL (130-400); RED CELL DISTRIBUTION WIDTH 16.8 % (10.0-14.5)
[2020-03-19 11:44] LABS: ALANINE AMINOTRANSFERASE 21 U/L (0-55); ALBUMIN 4.1 GM/DL (3.2-4.5); ALKALINE PHOSPHATASE 96 U/L (40-136); BILIRUBIN,TOTAL 0.5 MG/DL (0.1-1.0); BUN/CREATININE RATIO 12; CALCIUM 9.6 MG/DL (8.5-10.1); CARBON DIOXIDE 27 MMOL/L (21-32); CHLORIDE 101 MMOL/L (98-107); CREATININE SERUM 0.83 MG/DL (0.60-1.30); GFR ESTIMATED > 60; GLUCOSE 96 MG/DL (70-105); POTASSIUM 4.1 MMOL/L (3.6-5.0); SODIUM 139 MMOL/L (135-145); TOTAL PROTEIN 7.5 GM/DL (6.4-8.2)
--- NOTE | 2020-03-19 12:34 | Diagnostic Imaging Report ---
EXAMINATION: CT Chest with intravenous contrast, CT Abdomen and Pelvis without and with intravenous contrast. TECHNIQUE: Pre and post intravenous contrast axial imaging of the abdomen and pelvis and post contrast axial imaging of the chest were performed. All CT scans use one or more of the following dose optimizing techniques: automated exposure control, MA and/or KvP adjustment based on a patient size and exam type, or iterative reconstruction. INDICATION: Ovarian cancer with peritoneal metastases. COMPARISON: 03/06/2020 and 09/27/2019. FINDINGS: There is no edema or pneumonia. No pleural effusion. No pneumothorax. No suspicious nodules. There is scarring in the left upper lobe possibly with a suture line. Left port catheter tip terminates in the superior vena cava. Heart size is normal. There are no coronary artery calcifications. No pericardial effusion. Aorta is normal in caliber. There is no axillary or supraclavicular lymphadenopathy. There is no mediastinal lymphadenopathy. The liver is normal without focal lesion. There is no biliary ductal dilation. Gallbladder is surgically absent. Pancreas is normal. Spleen is not seen. Adrenal glands are normal. The kidneys are normal. There is no hydronephrosis. Urinary bladder is normal. There is a suture line in the rectum as well as in the right mid abdomen. Surgical clips are seen in the pelvis. There has been an increase in the moderate volume ascites. There are multiple dilated loops of large and small bowel which appear increased from prior exam. There are areas of peritoneal thickening and enhancement anteriorly which appears similar to the prior exam. No discrete measurable peritoneal nodules are seen. In the right mid abdomen, there are several high attenuating foci which do not appear to clearly be within bowel loops and are concerning for calcified serosal metastases. This may represent oral contrast, but is not clearly within the bowel. The largest measures 1.9 x 1.1 cm (series 3, image 189). The peritoneal fluid exerts mass effect on multiple bowel loops. A few septations are seen within the fluid. No abdominal or pelvic lymphadenopathy. Aorta is normal in caliber without aneurysm. There are no suspicious osseus lesions. IMPRESSION: 1. Increase in intraperitoneal ascites with mass effect on bowel loops and a few high attenuating foci concerning for calcified serosal implants (although these may represent ingested oral contrast within the small bowel). The peritoneum does appear somewhat thickened and enhancing in locations and overall findings are concerning for increasing malignant ascites. 2. Multifocal dilated loops of large and small bowel without discrete transition point but likely representing partial obstruction due to serosal disease on the bowel. 3. No metastatic disease seen in the chest. Dictated by: Dictated on workstation # [id number]
== END ==
LOC: RAD 10:18
PROVIDERS: ATTEND Nurse Practitioner Adult Health
DX: C78.6 Secondary malignant neoplasm of retroperitoneum and peritoneum (principal); C56.2 Malignant neoplasm of left ovary; K59.8 Other specified functional intestinal disorders
CPT/HCPCS: 36591; 71260; 74178; 80053; 85025; 86304

== ENCOUNTER → 2020-03-21 | Outpatient (CLI) | payer OTHER ==
[~2020-03-21] MED LIST changes: -BARIUM SUSPENSION 2.1% (VANILLA SILQ) 450 ML PO ONE; +BEVACIZUMAB IV SCH; -CATHETER FLUSH 10 ML SYR IV PRN; -HOLD METFORMIN - RECEIVED CONTRAST 20 ML VIAL IV SCH; -IOHEXOL 350 MG/ML 100 ML (OMNIPAQUE 350) VIAL IV ONE; -NS 100 ML (IVPB) BAG IV ONE; +NS IV 1000 ML (CANCER CTR) IV SCH; +NS IV SCH; +PALONOSETRON HCL 0.25 MG, DEXAMETHASONE INJ (CANCER CTR) 4 MG in NS (IVPB) CANCER CENTE... IV SCH; +TOPOTECAN HCL IV SCH
== END ==
LOC: ONC 12:48
PROVIDERS: ATTEND Internal Medicine Hematology & Oncology
DX: C56.1 Malignant neoplasm of right ovary (principal); C78.6 Secondary malignant neoplasm of retroperitoneum and peritoneum; Z90.710 Acquired absence of both cervix and uterus; Z90.722 Acquired absence of ovaries, bilateral; Z90.49 Acquired absence of other specified parts of digestive tract; Z90.81 Acquired absence of spleen; Z93.2 Ileostomy status; Z90.89 Acquired absence of other organs; Z90.13 Acquired absence of bilateral breasts and nipples; Z85.3 Personal history of malignant neoplasm of breast; Z79.899 Other long term (current) drug therapy
CPT/HCPCS: 99213